=== PATIENT | female | born 1930 | race African-American/Black ===

== ENCOUNTER 2016-07-17 20:29 | Inpatient (IN) | payer OTHER ==
[~2016-07-17] VITALS: Ht 160 cm; Wt 76.9 kg
--- NOTE | ~2016-07-17 | PR ---
[place], [place] PROGRESS NOTE NAME: LEI DRAPER UNIT #: [id number] ROOM: 528 DOCTOR: ANA ZELAYA MD BIRTHDATE: [birth year] DOS: 07/27/2016 SUBJECTIVE: Patient of Dr. Espinal. Examined. The patient on chronic renal dialysis now. Blood pressure still seems to be significantly elevated. The patient does not offer any complaints, appears to be much more alert. OBJECTIVE: HEENT: Unremarkable. NECK: Supple, no JVD. LUNGS: Diminished breath sounds. HEART: Sounds are regular. ABDOMEN: Soft. NEUROLOGICAL: Unchanged. LABORATORY DATA: Hemoglobin 8.3, hematocrit 26.5. Electrolytes are normal. Creatinine is 4.9. IMPRESSION: Persistent hypertension. Today's blood pressure earlier was 189/65 prior to the ____. Yesterday, it was 165/76. RECOMMENDATIONS: Medications have been adjusted. He is on lisinopril 10 mg daily, clonidine 0.3 q. 6, hydralazine 100 t.i.d., carvedilol 25 q. 12, atorvastatin 80 mg daily, aspirin, and Plavix. Monitor the blood pressure closely. If persistent hypertension, consideration should be given for making the clonidine to 0.4 as per nephrology and we will follow up. ANA ZELAYA MD CM:PNTRANS [id number] ANA ZELAYA MD 07/27/16 1007 interface
--- NOTE | ~2016-07-17 | CON ---
[place], [place] REPORT OF CONSULTATION NAME: LEI DRAPER UNIT #: [id number] ROOM: [place] [address] DOCTOR: MILY GARCÍA MD BIRTHDATE: [birth year] DOS: 07/18/2016 HISTORY OF PRESENT ILLNESS: This is an 86-year-old -[place] woman whom I have seen many times before. She has coronary artery disease and LAD was stented in 2007 following an anterior wall myocardial infarction. She ____ heart failure and has not had any further cardiac workup recently. She has essential hypertension and diabetes mellitus. Both of the latter diseases have led to severe renal insufficiency and now has end-stage renal disease. She has hyperlipidemia, GERD, diabetic neuropathy. She has chronic anemia and had had bradycardia in the remote past. She had a stroke in the remote past that left her with some difficulty with her speech. She was admitted to the hospital because she had nausea, some abdominal discomfort, and also increasing shortness of breath a few days prior to this admission. She did not have any chest pain or heaviness or palpitations. No dizziness or loss of consciousness. She walks using a walker and has not had any falls and no new neurological symptoms. She does not smoke, nor does she drink alcoholic beverages. HOME MEDICATIONS: Include aspirin 81, atorvastatin 80 daily, carvedilol 6.25 mg b.i.d., clonidine 0.2 mg every 8 hours, clopidogrel 75 daily, furosemide 40 b.i.d., hydralazine 50 b.i.d., levothyroxine 25 mcg, prednisone 5 mg daily, ranitidine 150 mg daily, insulin detemir and NovoLog mix. PHYSICAL EXAMINATION: GENERAL: The patient who is very pleasant, alert. She is very comfortable. Her speech is not quite normal, but one can understand and without much difficulty. She looks a little pale. VITAL SIGNS: Temperature is normal. Pulse is regular at 76 beats per minute, blood pressure 179/82. Blood pressure has been persistently elevated, the highest being 217/100. NECK: JVP is increased to about 10 cm. No bruit in the neck. HEART: Cardiac auscultation reveals no murmurs or rubs. EXTREMITIES: She has no edema in the lower extremities. LUNGS: Breath sounds are diminished with some rhonchi. She has difficulty taking deep breaths. ABDOMEN: Supple. No bruit is present. LABORATORY DATA: An ECG showed normal sinus rhythm at 97 beats per minute, incomplete right bundle-branch block, and mild left axis deviation, which has been present for many years. Troponin has risen to just above 1 and in March troponin was close to 1. She has a chronically elevated troponin I level due to severe chronic renal insufficiency. Hemoglobin is 8.1 g/dL. IMPRESSION: 1. Elevated troponin I level is chronic and most likely is due to a combination of factors, namely severe anemia, severe renal insufficiency. I do not believe [place], [place] REPORT OF CONSULTATION NAME: LEI DRAPER UNIT #: [id number] ROOM: [place] [address] DOCTOR: RAQUEL SIMON,MILY BIRTHDATE: [birth year] this is due to occlusion of coronary artery. 2. She has some degree of volume load form clinical examination. 3. Chronic anemia, probably due to renal insufficiency. RECOMMENDATIONS: Nitro paste and IV heparin should be discontinued. Her home cardiac medications should be continued. I do not feel any further cardiac workup is necessary. She had an echocardiogram last year, which showed normal LV systolic function. I thank you for this consult. MILY GARCÍA MD CM:CONSTR:REPORT OF CONSULTATION 0724 07/18/16 1026 interface
--- NOTE | ~2016-07-17 | EKG ---
[place], [place] ELECTROCARDIOGRAM REPORT NAME: LEI DRAPER UNIT #: [id number] ROOM: [facility] DOCTOR: RAQUEL SIMON,MILY BIRTHDATE: [birth year] DOS: 07/17/2016 TIME: 21:06 hours. Normal sinus rhythm at 97 beats per minute. Moderate left axis deviation. Complete right bundle branch block. An abnormal ECG. No previous tracing is available for comparison. MILY GARCÍA MD CM:EKGRPT:ELECTROCARDIOGRAM REPORT [id number] MILY GARCÍA MD
--- NOTE | ~2016-07-17 | PR ---
[place], [place] PROGRESS NOTE NAME: LEI DRAPER UNIT #: [id number] ROOM: [place] [address] DOCTOR: NATHALIE SIMON,ANA BIRTHDATE: [birth year] DOS: SUBJECTIVE: The patient examined in the Intensive Care Unit. The patient still continues to be hypertensive, still on 40 mcg of nitro. The patient refusing dialysis. The patient was seen by Dr. Espinal yesterday. OBJECTIVE: VITAL SIGNS: Blood pressure is 160/70, in sinus rhythm. NECK: No jugular venous distention. LUNGS: Diminished breath sounds. HEART: Sounds are regular. ABDOMEN: Soft. NEUROLOGIC: Lethargic, arousable. LABORATORY DATA: Hemoglobin 8.1, hematocrit 26.1, potassium ____, BUN 79, creatinine is 8. INR is 1.0. IMPRESSION: Acute renal failure, persistent hypertension. RECOMMENDATIONS: Increase the clonidine. The patient needs dialysis. Troponin elevation is secondary to the renal failure CONDITION: Guarded and critical. We will try to review the echocardiogram if it is done. Condition is guarded and we will follow up. ANA ZELAYA MD CM:PNTRANS 1 ANA ZELAYA MD 07/19/16 0703 interface
--- NOTE | ~2016-07-17 | PR ---
[place], [place] PROGRESS NOTE NAME: LEI DRAPER UNIT #: [id number] ROOM: [facility] DOCTOR: ANA ZELAYA MD BIRTHDATE: [birth year] DOS: SUBJECTIVE: 24-hour events noted. Discussed with the nursing staff. The patient is undergoing dialysis recently. Agree for that. Blood pressure still seems to be significantly elevated. Blood pressure today is 170/80 and is going to 170s-180s, already on carvedilol, hydralazine, and Catapres 0.3 every 8 hours. OBJECTIVE: VITAL SIGNS: Blood pressure is 170/80 in sinus rhythm. NECK: Supple, no JVD. LUNGS: Diminished breath sounds. HEART: Heart sounds are regular. ABDOMEN: Soft. NEUROLOGIC: Intermittent confusion. LABORATORY DATA: BUN 41, creatinine is 5.4. IMPRESSION: 1. Urgent hypertension, uncontrolled. 2. Acute on chronic renal failure. 3. Cardiomyopathy. RECOMMENDATIONS: Increase the Catapres to every 6 hours, keep the systolic pressure below 150, and we will follow up. ANA ZELAYA MD CM:PNTRANS 0747 1108 ANA ZELAYA MD 07/24/16 1108 interface
--- NOTE | ~2016-07-17 | PR ---
[place], [place] PROGRESS NOTE [id number] UNIT #: [id number] ROOM: 528 DOCTOR: CARLOS SIMON,CLARITZA Cross BIRTHDATE: [birth year] DOS: 07/28/2016 NEPHROLOGY FOLLOWUP NOTE SUBJECTIVE: The patient was seen and examined. She is awake and alert. She denies shortness of breath, chest pain, fevers, chills or night sweats. She denied any nausea or vomiting. PHYSICAL EXAMINATION: VITAL SIGNS: Showed temperature 97.4, pulse 55, respiratory rate 18 and blood pressure 162/62. HEENT: Shows no JVD. LUNGS: With diminished breath sounds. No wheeze. HEART: Normal S1, S2. ABDOMEN: Soft, nontender. There is no organomegaly. EXTREMITIES: Trace edema. LABORATORY DATA: Hemoglobin 8.3, white count 13.4, platelets of 266. Sodium 134, potassium 4.1, CO2 26, BUN 35, creatinine 4.9, glucose 140, these labs were from yesterday. IMPRESSION AND PLAN: 1. End-stage renal disease, on hemodialysis Saturday, Saturday, Saturday. The patient is tolerating treatments well. Next treatment will be on Saturday. 2. Anemia. We will give as needed erythropoietin stimulating agents and IV iron with dialysis as blood pressure allows. 3. Secondary hyperparathyroidism. Continue activated vitamin D. 4. Hypertension. Medications are being adjusted. 5. Diabetes mellitus. The patient is on insulin. CLARITZA GONZALEZ MD CM:PNTRANS [id number] CLARITZA GONZALEZ MD 07/30/16 0007 interface
--- NOTE | ~2016-07-17 | PR ---
[place], [place] PROGRESS NOTE NAME: LEI DRAPER UNIT #: [id number] ROOM: [facility] DOCTOR: MILY GARCÍA MD BIRTHDATE: [birth year] DOS: 07/25/2016 SUBJECTIVE: She is alert, oriented. Speech is not normal. This is chronic from an old stroke. She has no chest pain; breathing is fine and has not had any palpitations either. OBJECTIVE: GENERAL: She is dialyzing at this time. VITAL SIGNS: Pulse is regular at 60. Blood pressure 174/74, previous blood pressure had been somewhat lower. NECK: JVP is difficult to assess. LUNGS: Clear to auscultation with no murmurs. She has a rhonchi and some crackles in both lungs. EXTREMITIES: No edema at all in the lower extremities. IMPRESSION: Hypertension is better. I think dialysis should make a fair amount of difference. She is on quite a few antihypertensive medications. She remains in normal sinus rhythm. MILY GARCÍA MD CM:PNTRANS 1205 40 MILY GARCÍA MD 07/25/162140 interface
--- NOTE | ~2016-07-17 | PR ---
[place], [place] PROGRESS NOTE NAME: LEI DRAPER UNIT #: [id number] ROOM: [facility] DOCTOR: MILY GARCÍA MD BIRTHDATE: [birth year] DOS: 07/23/2016 SUBJECTIVE: This patient has end-stage renal disease and was admitted to the hospital with extremely high blood pressures, which have been very difficult to tame despite her being on carvedilol 25 b.i.d., clonidine 0.3 mg t.i.d., and hydralazine 50 mg b.i.d. PHYSICAL EXAMINATION: GENERAL: This is a patient who is tired, exhausted. She has residual from her CVA and mobility is difficult. VITAL SIGNS: Pulses are irregular, blood pressure is 180 to 190 most of the time. NECK: JVP difficult to assess. LUNGS: Breath sounds are fairly distant with some rhonchi. EXTREMITIES: No edema of the lower extremities. IMPRESSION: 1. Hypertension. This has still not been tamed adequately. I would recommend hydralazine to be increased to 50 mg t.i.d. 2. End-stage renal disease. Dialysis catheter is not working. I think once she begin to dialyze, this should also help with blood pressure control. MILY GARCÍA MD CM:PNTRANS [id number] MILY GARCÍA MD 07/24/16 0642 interface
--- NOTE | ~2016-07-17 | PR ---
[place], [place] PROGRESS NOTE NAME: LEI DRAPER UNIT #: [id number] ROOM: [facility] DOCTOR: MIYL GARCÍA MD BIRTHDATE: [birth year] DOS: 07/20/2016 SUBJECTIVE: The patient remains short of breath. She has not had any chest pain or palpitation. No cough or fever. Blood pressure had been running rather high. She is on many antihypertensive and also is on IV nitroglycerin drip. OBJECTIVE: GENERAL: She is alert and oriented. Her speech is not normal and this is due to old CVA. VITAL SIGNS: Pulse is irregular at 66 beats per minute, blood pressure 118/50, most of the systolic blood pressure had been around 150/180. NECK: JVP is elevated. LUNGS: She has rhonchi with crackles in the bases. EXTREMITIES: No edema in the lower extremities. LABORATORY DATA: Monitor shows normal sinus rhythm. IMPRESSION: This patient has hypertension ____ controlled. Heart rate is still decent; therefore carvedilol is being increased to 25 mg b.i.d. and IV nitroglycerin has been discontinued if blood pressure stays below 180s. Once hemodialysis is started, blood pressure is likely to come under very good control and then some antihypertensive drugs may have to be reduced or stopped. MILY GARCÍA MD CM:PNTRANS 0727 0931 MILY GARCÍA MD 07/20/16 0932 interface
[~2016-07-17 20:29] MED LIST: 'CLONIDINE0.1 MG PO; AMITRIPTYLINE10 MG PO; AMLODIPINE10 MG PO; ASPIRIN81 M1 PO; BACTRIM DS 8001 TA1 PO; CALCITRIOL0.25 MCG PO; CATAPRES; CIPRO500 MG PO; CLONIDINE HCL0.2 MG PO; CLONIDINE0.2 MG PO; COREG25 MG PO; COREG6.25 MG PO; Carafate1 GM PO; DIOVAN; DIOVAN320 MG PO; ECOTRIN81 MG PO; FLEXERIL10 MG PO; HUMULIN 70/30 710 M1 SC; HYDRALAZINE HYD50 MG PO; HYDROCODONE BIT1 T11 PO; LASIX40 MG PO; LEVEMIR FLEX100 U/ML SC; LEVOTHYROXIN0.025 MG PO; LIPITOR80 MG PO; METOLAZONE2.5 MG PO; NORVASC10 MG PO; NOVOLOG MI100 UNIT/2 SQ; NPH SC; OMEPRAZOLE20 MG PO; PLAVIX75 MG PO; POTASSIUM; POTASSIUM20 MEQ PO; PREDNISONE5 MG PO; SINGULAIR10 M1 PO; SINGULAIR10 MG PO; SYNTHROID0.05 MG PO; SYNTHROID25 MCG PO; VICODIN 5/500 505 MG PO; VITAMIN D PO; VOLTAREN1% TP; WATER; ZANTAC 150150 MG PO; ZITHROMAX Z PA250 MG PO; ZOFRAN4 MG PO
[2016-07-17 20:33] VITALS: BP 189/99
[2016-07-17 21:14] LABS: BASO # 0.1 10*3/uL (0.0-0.1); BASO % 0.5 % (0.0-1.0); EOS # 0.1 10*3/uL (0.0-0.4); EOS % 1.4 % (1.0-4.0); HEMOGLOBIN 8.6 g/dl (12.0-16.0); LYMPH # 2.5 10*3/uL (1.3-4.4); LYMPH % 24.9 % (27.0-41.0); MEAN CELL VOLUME 87.4 fl (81.0-99.0); MEAN CORPUSCULAR HGB 27.8 pg (27.0-31.0); MEAN CORPUSCULAR HGB CONC 31.9 g/dl (33.0-37.0); MEAN PLATELET VOLUME 10.7 fl (9.6-12.3); MONO # 0.6 10*3/uL (0.1-1.0); MONO % 5.9 % (3.0-9.0); NEUT # 6.8 10*3/uL (2.3-7.9); NEUT % 67.1 % (47.0-73.0); PLATELET COUNT AUTOMATED 281 10*3/uL (130-400); RED BLOOD COUNT 3.09 10*6/uL (4.10-5.10); RED CELL DISTRI WIDTH 14.8 % (0-14.5); WHITE BLOOD COUNT 10.1 10*3/uL (4.8-10.8)
[2016-07-17 21:23] LABS: PROTHROMBIN TIME 10.7 SECONDS (9.0-12.4)
[2016-07-17 21:31] LABS: ALBUMIN 3.4 gm/dl (3.1-4.5); BILIRUBIN, TOTAL 0.3 mg/dl (0.2-1.0); MAGNESIUM 2.5 mg/dL (1.5-2.1); POTASSIUM 4.2 mmol/L (3.5-5.1); TOTAL PROTEIN 7.7 gm/dL (6.4-8.2)
[2016-07-17 21:33] LABS: TROPONIN I 0.996 ng/ml (<0.045)
[2016-07-17 21:41] VITALS: BP 178/80
[2016-07-17 22:35] VITALS: BP 182/84
[2016-07-17 22:46] LABS: BILIRUBIN NEGATIVE (NEGATIVE); BLOOD TRACE-INTACT (NEGATIVE); CLARITY CLEAR (CLEAR); COLOR YELLOW (YELLOW); GLUCOSE TRACE (NEGATIVE); KETONE NEGATIVE (NEGATIVE); LEUKO ESTERASE NEGATIVE (NEGATIVE); NITRITE NEGATIVE (NEGATIVE); PH 6.5 (5.0-9.0); PROTEIN 3+ (NEGATIVE); SPECIFIC GRAVITY 1.015 (1.005-1.030); UROBILINOGEN 0.2 E.U./dl (0.2-1.0)
[2016-07-17 22:56] LABS: URINE REFLEX COMMENT NO (NO)
[2016-07-17 23:45] VITALS: BP 220/110
[2016-07-18] VITALS (27 sets, daily range): BP systolic 144–220; BP diastolic 57–110
[2016-07-18] MEDS ORDERED: LEVEMIR10 ML SC (00:28)
[2016-07-18 05:55] LABS: CKMB 3.2 ng/ml (0.5-3.6)
[2016-07-18 06:02] LABS: TROPONIN I 1.02 ng/ml (<0.045)
[2016-07-18 06:08] LABS: BASO # 0.1 10*3/uL (0.0-0.1); BASO % 0.5 % (0.0-1.0); EOS # 0.1 10*3/uL (0.0-0.4); EOS % 1.2 % (1.0-4.0); HEMATOCRIT 26.1 % (37.0-47.0); HEMOGLOBIN 8.1 g/dl (12.0-16.0); LYMPH # 2.4 10*3/uL (1.3-4.4); LYMPH % 22.1 % (27.0-41.0); MEAN CELL VOLUME 87.9 fl (81.0-99.0); MEAN CORPUSCULAR HGB 27.3 pg (27.0-31.0); MEAN PLATELET VOLUME 11.6 fl (9.6-12.3); MONO # 0.6 10*3/uL (0.1-1.0); MONO % 5.4 % (3.0-9.0); NEUT # 7.5 10*3/uL (2.3-7.9); NEUT % 70.6 % (47.0-73.0); PLATELET COUNT AUTOMATED 290 10*3/uL (130-400); RED BLOOD COUNT 2.97 10*6/uL (4.10-5.10); RED CELL DISTRI WIDTH 14.6 % (0-14.5); WHITE BLOOD COUNT 10.7 10*3/uL (4.8-10.8)
[2016-07-18 06:09] LABS: MAGNESIUM 2.5 mg/dL (1.5-2.1); POTASSIUM 3.8 mmol/L (3.5-5.1)
[2016-07-18 06:19] LABS: FREE T4 1.11 ng/dl (0.76-1.46); THYROID STIM HORMONE (HS) 4.58 uIU/ml (0.358-4.75)
[2016-07-18 06:32] LABS: HEMOGLOBIN A1c 8.6 % (4.8-5.6)
[2016-07-18 07:24] LABS: VITAMIN D, 25-HYDROXY 24.4 ng/mL (30-100)
[2016-07-18 07:25] LABS: FOLIC ACID 21.41 ng/mL (>5.38)
[2016-07-18 12:17] LABS: CKMB 3.9 ng/ml (0.5-3.6)
[2016-07-18 12:20] LABS: TROPONIN I 1.15 ng/ml (<0.045)
[2016-07-18 18:10] LABS: TROPONIN I 1.22 ng/ml (<0.045)
[2016-07-19] VITALS (12 sets, daily range): BP systolic 139–195; BP diastolic 65–102
[2016-07-19 05:43] LABS: ALBUMIN 2.9 gm/dl (3.1-4.5); MAGNESIUM 2.3 mg/dL (1.5-2.1); PHOSPHOROUS 3.7 mg/dL (2.5-4.9); POTASSIUM 3.7 mmol/L (3.5-5.1)
[2016-07-20] VITALS (17 sets, daily range): BP systolic 106–212; BP diastolic 50–110
[2016-07-20 05:55] LABS: ALBUMIN 2.9 gm/dl (3.1-4.5); MAGNESIUM 2.5 mg/dL (1.5-2.1); PHOSPHOROUS 4.4 mg/dL (2.5-4.9); POTASSIUM 3.9 mmol/L (3.5-5.1)
[2016-07-20 06:21] LABS: PROTHROMBIN TIME 10.5 SECONDS (9.0-12.4)
[2016-07-20 16:10] LABS: IRON 24 ug/dL (50-170)
[2016-07-20 16:33] LABS: FERRITIN 125.2 ng/mL (10.0-291.0)
[2016-07-20 16:34] LABS: PTH INTACT 779.8 pg/mL (14.0-72.0)
[2016-07-21] VITALS (11 sets, daily range): BP systolic 120–197; BP diastolic 28–83
[2016-07-21 06:06] LABS: ALBUMIN 2.7 gm/dl (3.1-4.5); PHOSPHOROUS 3.5 mg/dL (2.5-4.9); POTASSIUM 3.6 mmol/L (3.5-5.1)
[2016-07-21 06:12] LABS: BASO % 0.2 % (0.0-1.0); EOS # 0.2 10*3/uL (0.0-0.4); HEMATOCRIT 21.4 % (37.0-47.0); HEMOGLOBIN 6.8 g/dl (12.0-16.0); LYMPH # 1.8 10*3/uL (1.3-4.4); LYMPH % 18.6 % (27.0-41.0); MEAN CELL VOLUME 88.4 fl (81.0-99.0); MEAN CORPUSCULAR HGB 28.1 pg (27.0-31.0); MEAN CORPUSCULAR HGB CONC 31.8 g/dl (33.0-37.0); MEAN PLATELET VOLUME 11.3 fl (9.6-12.3); MONO # 0.6 10*3/uL (0.1-1.0); MONO % 5.8 % (3.0-9.0); NEUT % 73.1 % (47.0-73.0); PLATELET COUNT AUTOMATED 240 10*3/uL (130-400); RED BLOOD COUNT 2.42 10*6/uL (4.10-5.10); RED CELL DISTRI WIDTH 14.7 % (0-14.5); WHITE BLOOD COUNT 9.6 10*3/uL (4.8-10.8)
[2016-07-21 08:15] LABS: HEP B CORE AB TOTAL 006718 Positive (Negative); HEPATITIS B SURFACE AB 006395 Reactive (.); TRANSFERRIN 004937 177 mg/dL (200-370)
[2016-07-22] VITALS: BP 171/68
[2016-07-22 04:00] VITALS: BP 167/82
[2016-07-22 05:55] LABS: BASO % 0.4 % (0.0-1.0); EOS # 0.1 10*3/uL (0.0-0.4); EOS % 1.4 % (1.0-4.0); IG # 0.1 10*3/uL (0.0-0.1); LYMPH # 2.2 10*3/uL (1.3-4.4); LYMPH % 21.2 % (27.0-41.0); MEAN CORPUSCULAR HGB 28.2 pg (27.0-31.0); MEAN CORPUSCULAR HGB CONC 32.4 g/dl (33.0-37.0); MEAN PLATELET VOLUME 11.1 fl (9.6-12.3); MONO # 0.7 10*3/uL (0.1-1.0); MONO % 7.2 % (3.0-9.0); NEUT # 7.2 10*3/uL (2.3-7.9); NEUT % 69.3 % (47.0-73.0); NUCLEATED RED BLOOD CELL 0.2 % (0.0-0.0); PLATELET COUNT AUTOMATED 243 10*3/uL (130-400); RED BLOOD COUNT 3.23 10*6/uL (4.10-5.10); RED CELL DISTRI WIDTH 15.8 % (0-14.5); WHITE BLOOD COUNT 10.3 10*3/uL (4.8-10.8)
[2016-07-22 05:58] LABS: POTASSIUM 3.7 mmol/L (3.5-5.1)
[2016-07-22 06:15] LABS: HEMATOCRIT 28.1 % (37.0-47.0); HEMOGLOBIN 9.1 g/dl (12.0-16.0)
[2016-07-22 08:00] VITALS: BP 169/70
[2016-07-22 12:00] VITALS: BP 150/102
[2016-07-22 16:00] VITALS: BP 197/83
[2016-07-22 20:00] VITALS: BP 180/102
[2016-07-23] VITALS (11 sets, daily range): BP systolic 140–235; BP diastolic 62–108
[2016-07-23 05:57] LABS: BASO # 0.1 10*3/uL (0.0-0.1); BASO % 0.5 % (0.0-1.0); EOS # 0.1 10*3/uL (0.0-0.4); EOS % 1.3 % (1.0-4.0); HEMATOCRIT 27.3 % (37.0-47.0); HEMOGLOBIN 8.5 g/dl (12.0-16.0); LYMPH # 2.2 10*3/uL (1.3-4.4); LYMPH % 20.4 % (27.0-41.0); MEAN CELL VOLUME 87.8 fl (81.0-99.0); MEAN CORPUSCULAR HGB 27.3 pg (27.0-31.0); MEAN CORPUSCULAR HGB CONC 31.1 g/dl (33.0-37.0); MEAN PLATELET VOLUME 11.2 fl (9.6-12.3); MONO # 0.7 10*3/uL (0.1-1.0); MONO % 6.4 % (3.0-9.0); NEUT # 7.6 10*3/uL (2.3-7.9); NEUT % 71.1 % (47.0-73.0); NUCLEATED RED BLOOD CELL 0.2 % (0.0-0.0); PLATELET COUNT AUTOMATED 249 10*3/uL (130-400); RED BLOOD COUNT 3.11 10*6/uL (4.10-5.10); RED CELL DISTRI WIDTH 15.5 % (0-14.5); WHITE BLOOD COUNT 10.7 10*3/uL (4.8-10.8)
[2016-07-23 06:14] LABS: POTASSIUM 3.8 mmol/L (3.5-5.1)
[2016-07-23 13:43] LABS: ABG BASE EXCESS -2.8 mmol/L (-2.0-2.0); ABG CO2 CONTENT 23.5 mmol/L (23-27); ABG HCO3 22.2 mmol/l (22-26); ARTERIAL BLOOD GAS PH 7.366 (7.35-7.45)
[2016-07-24] VITALS: BP 132/41
[2016-07-24 04:00] VITALS: BP 181/66
[2016-07-24 08:00] VITALS: BP 168/66
[2016-07-24 11:00] LABS: BASO % 0.3 % (0.0-1.0); EOS # 0.1 10*3/uL (0.0-0.4); EOS % 0.8 % (1.0-4.0); HEMATOCRIT 26.9 % (37.0-47.0); HEMOGLOBIN 8.7 g/dl (12.0-16.0); LYMPH # 1.4 10*3/uL (1.3-4.4); LYMPH % 13.2 % (27.0-41.0); MEAN CELL VOLUME 87.9 fl (81.0-99.0); MEAN CORPUSCULAR HGB 28.4 pg (27.0-31.0); MEAN CORPUSCULAR HGB CONC 32.3 g/dl (33.0-37.0); MEAN PLATELET VOLUME 10.3 fl (9.6-12.3); MONO # 0.6 10*3/uL (0.1-1.0); MONO % 5.6 % (3.0-9.0); NEUT # 8.6 10*3/uL (2.3-7.9); NEUT % 79.9 % (47.0-73.0); PLATELET COUNT AUTOMATED 248 10*3/uL (130-400); RED BLOOD COUNT 3.06 10*6/uL (4.10-5.10); RED CELL DISTRI WIDTH 15.2 % (0-14.5); WHITE BLOOD COUNT 10.7 10*3/uL (4.8-10.8)
[2016-07-24 11:11] LABS: POTASSIUM 4.2 mmol/L (3.5-5.1)
[2016-07-24 13:02] VITALS: BP 105/65
[2016-07-24 14:59] VITALS: BP 141/53
[2016-07-24 20:00] VITALS: BP 184/82
[2016-07-25] VITALS: BP 138/80
[2016-07-25 04:00] VITALS: BP 168/62
[2016-07-25 06:13] LABS: ALBUMIN 2.6 gm/dl (3.1-4.5); MAGNESIUM 2.1 mg/dL (1.5-2.1); PHOSPHOROUS 5.1 mg/dL (2.5-4.9); POTASSIUM 4.1 mmol/L (3.5-5.1)
[2016-07-25 06:16] LABS: BASO % 0.2 % (0.0-1.0); EOS # 0.1 10*3/uL (0.0-0.4); EOS % 1.3 % (1.0-4.0); HEMOGLOBIN 8.1 g/dl (12.0-16.0); LYMPH # 1.8 10*3/uL (1.3-4.4); LYMPH % 19.4 % (27.0-41.0); MEAN CORPUSCULAR HGB CONC 31.2 g/dl (33.0-37.0); MEAN PLATELET VOLUME 10.6 fl (9.6-12.3); MONO # 0.7 10*3/uL (0.1-1.0); MONO % 7.4 % (3.0-9.0); NEUT # 6.8 10*3/uL (2.3-7.9); NEUT % 71.4 % (47.0-73.0); PLATELET COUNT AUTOMATED 260 10*3/uL (130-400); RED BLOOD COUNT 2.89 10*6/uL (4.10-5.10); RED CELL DISTRI WIDTH 14.9 % (0-14.5); WHITE BLOOD COUNT 9.5 10*3/uL (4.8-10.8)
[2016-07-25 08:00] VITALS: BP 171/72
[2016-07-25 12:00] VITALS: BP 174/74
[2016-07-25 16:00] VITALS: BP 175/69
[2016-07-25 20:00] VITALS: BP 168/52
[2016-07-26] VITALS (7 sets, daily range): BP systolic 107–188; BP diastolic 69–90
[2016-07-26 06:23] LABS: BASO % 0.4 % (0.0-1.0); EOS # 0.1 10*3/uL (0.0-0.4); EOS % 0.9 % (1.0-4.0); HEMATOCRIT 27.8 % (37.0-47.0); HEMOGLOBIN 8.7 g/dl (12.0-16.0); LYMPH # 2.2 10*3/uL (1.3-4.4); LYMPH % 21.5 % (27.0-41.0); MEAN CELL VOLUME 89.4 fl (81.0-99.0); MEAN CORPUSCULAR HGB CONC 31.3 g/dl (33.0-37.0); MEAN PLATELET VOLUME 10.5 fl (9.6-12.3); MONO # 1.1 10*3/uL (0.1-1.0); MONO % 10.1 % (3.0-9.0); NEUT % 66.7 % (47.0-73.0); PLATELET COUNT AUTOMATED 278 10*3/uL (130-400); RED BLOOD COUNT 3.11 10*6/uL (4.10-5.10); RED CELL DISTRI WIDTH 14.9 % (0-14.5); WHITE BLOOD COUNT 10.4 10*3/uL (4.8-10.8)
[2016-07-26 06:55] LABS: ALBUMIN 2.6 gm/dl (3.1-4.5); MAGNESIUM 1.8 mg/dL (1.5-2.1); PHOSPHOROUS 3.1 mg/dL (2.5-4.9)
[2016-07-27] VITALS: BP 189/65
[2016-07-27 06:07] LABS: BASO # 0.1 10*3/uL (0.0-0.1); BASO % 0.4 % (0.0-1.0); EOS # 0.1 10*3/uL (0.0-0.4); EOS % 0.9 % (1.0-4.0); HEMATOCRIT 26.5 % (37.0-47.0); HEMOGLOBIN 8.3 g/dl (12.0-16.0); IG # 0.1 10*3/uL (0.0-0.1); LYMPH # 2.2 10*3/uL (1.3-4.4); LYMPH % 16.5 % (27.0-41.0); MEAN CELL VOLUME 87.7 fl (81.0-99.0); MEAN CORPUSCULAR HGB 27.5 pg (27.0-31.0); MEAN CORPUSCULAR HGB CONC 31.3 g/dl (33.0-37.0); MEAN PLATELET VOLUME 10.2 fl (9.6-12.3); MONO # 0.9 10*3/uL (0.1-1.0); NEUT % 74.7 % (47.0-73.0); PLATELET COUNT AUTOMATED 266 10*3/uL (130-400); RED BLOOD COUNT 3.02 10*6/uL (4.10-5.10); RED CELL DISTRI WIDTH 14.7 % (0-14.5); WHITE BLOOD COUNT 13.4 10*3/uL (4.8-10.8)
[2016-07-27 06:38] LABS: ALBUMIN 2.8 gm/dl (3.1-4.5); MAGNESIUM 1.9 mg/dL (1.5-2.1); PHOSPHOROUS 3.5 mg/dL (2.5-4.9); POTASSIUM 4.1 mmol/L (3.5-5.1)
[2016-07-27 08:00] VITALS: BP 158/68; BP 174/58
[2016-07-27 12:00] VITALS: BP 162/80
[2016-07-27 16:00] VITALS: BP 138/44
[2016-07-27 17:18] VITALS: BP 160/72
[2016-07-27 20:00] VITALS: BP 160/63
[2016-07-28] VITALS: BP 157/58
[2016-07-28 08:00] VITALS: BP 160/86
[2016-07-28 12:00] VITALS: BP 162/62
== END 2016-07-28 15:15 | disposition other institution (70) | DRG 682 ==
LOC: ED 20:29 → EDHOLD 22:30 → 5E 22:30 → ICCU 22:30 → 5E 07-26 15:23
PROVIDERS: Anesthesiology; Emergency Medicine Emergency Medical Services; Internal Medicine; Internal Medicine Nephrology; Student in an Organized Health Care Education/Training Program
DX: I12.0 Hypertensive chronic kidney disease with stage 5 chronic kidney disease or end stage renal disease (principal); J96.00 Acute respiratory failure, unspecified whether with hypoxia or hypercapnia; I21.4 Non-ST elevation (NSTEMI) myocardial infarction; N17.9 Acute kidney failure, unspecified; E43 Unspecified severe protein-calorie malnutrition; N18.6 End stage renal disease; I42.9 Cardiomyopathy, unspecified; I16.1 Hypertensive emergency; N25.81 Secondary hyperparathyroidism of renal origin; J98.11 Atelectasis; E55.9 Vitamin D deficiency, unspecified; E83.41 Hypermagnesemia; E11.22 Type 2 diabetes mellitus with diabetic chronic kidney disease; E11.65 Type 2 diabetes mellitus with hyperglycemia; D63.1 Anemia in chronic kidney disease; G44.52 New daily persistent headache (NDPH); Z99.2 Dependence on renal dialysis; Z86.73 Personal history of transient ischemic attack (TIA), and cerebral infarction without residual deficits; Z87.440 Personal history of urinary (tract) infections; Z90.49 Acquired absence of other specified parts of digestive tract; Z90.710 Acquired absence of both cervix and uterus; Z95.818 Presence of other cardiac implants and grafts; Z82.3 Family history of stroke; Z84.1 Family history of disorders of kidney and ureter; Z88.5 Allergy status to narcotic agent; Z79.82 Long term (current) use of aspirin; Z79.4 Long term (current) use of insulin; Z68.30 Body mass index [BMI] 30.0-30.9, adult

== ENCOUNTER 2016-08-01 18:39 | Inpatient (IN) | payer OTHER ==
[~2016-08-01] VITALS: Ht 160 cm; Wt 72.6 kg
--- NOTE | ~2016-08-01 | CON ---
[place], [place] REPORT OF CONSULTATION NAME: LEI DRAPER UNIT #: [id number] ROOM: 510 DOCTOR: MILY GARCÍA MD BIRTHDATE: [birth year] DOS: 08/06/2016 HISTORY OF PRESENT ILLNESS: This is an 86-year-old woman whom I have seen many times before. She has coronary artery disease and had LAD stented about 9 years ago. This was followed with acute anterior wall myocardial infarction. She did not have any heart failure and has not had any further cardiac workup. She has essential hypertension and diabetes. She has had a stroke, diabetic neuropathy, GERD, hyperlipidemia, and chronic anemia and has had sinus bradycardia. Her speech has been affected by a stroke. She was admitted to the hospital because of a seizure-like activity and her troponin I level was mildly elevated, but the 4 readings over 3 days have been pretty much the same i.e. no trend. She has been dialyzing now for the last couple of weeks. She did not have any chest pain, does not recall having had any palpitation and there was no loss of consciousness. She is alert and oriented. Speech is not quite normal. PHYSICAL EXAMINATION: VITAL SIGNS: Blood pressure is 186/66. Pulse is regular at 72. NECK: JVP is normal. LUNGS: She has hardly any crackles in the lungs. HEART: There are no murmurs. EXTREMITIES: There is 1+ pedal edema bilaterally. LABORATORY DATA: An ECG shows sinus bradycardia with a complete right bundle-branch block, which is chronic. As I mentioned above, troponin I level has been between 0.2 and 0.3. IMPRESSION: This patient has mildly elevated troponin I level and this is most likely due to end-stage renal disease and perhaps severe hypertension. I do not suspect this is from occlusion of coronary artery; therefore, further workup is not recommended. ____ hypertension, this is much better controlled. I thank you for this consult. [place], [place] REPORT OF CONSULTATION NAME: LEI DRAPER UNIT #: [id number] ROOM: 510 DOCTOR: MILY GARCÍA MD BIRTHDATE: [birth year] MILY GARCÍA MD CM:CONSTR:REPORT OF CONSULTATION 1810 08/07/16 0806 interface
--- NOTE | ~2016-08-01 | CON ---
[place], [place] REPORT OF CONSULTATION NAME: LEI DRAPER UNIT #: [id number] ROOM: 510 DOCTOR: CIARA LOWE MD BIRTHDATE: [birth year] DOS: 08/02/2016 NEPHROLOGY CONSULTATION REASON FOR CONSULTATION: End-stage renal disease management. HISTORY OF PRESENT ILLNESS: The patient is a very pleasant 86-year-old woman seen in renal consultation for end-stage renal disease management. She is well known to me for her history of CKD secondary to hypertension and diabetes. She has recently been started on dialysis a few weeks ago when hospitalized here. She came into the hospital on 07/17/2016 with worsening shortness of breath, volume overload, hypertensive urgency, nausea, vomiting. After several days of diuresis she finally did state that she wanted to do dialysis and was happy that she did so, her creatinine was into the 8 range at that time. Since starting dialysis overall blood pressures remain elevated and labile, but overall fairly acceptably controlled. Her clearance numbers have been acceptable. Her electrolytes are stable. Acidosis panels have been normal. Her anemia has been improving from hemoglobin in the 8 level up to 10 with erythropoietin stimulating agent therapy. On Saturday when I saw her at outpatient dialysis, she did have some hypertension and volume and I tried to push her ultrafiltration rate a little bit more she developed intradialytic hypotension. Blood pressures dropped significantly. She became symptomatic and had abdominal pain as a primary symptom. After this, she did have some abdominal pain, but recovered blood pressure fairly well after reduced ultrafiltration goal. Saturday's treatment yesterday was fairly unremarkable except for some hypertension and when she went back to the home at [place] she was asking for food, food did not come per her report when she got it, her daughter was there and she noted slightly clonic behavior, increased tone was mostly upper arms and entire torso. She brought her arms closer to her chest rhythmically started having clonic behavior, mostly in the right lower extremity. According to the daughter, she continued to try to talk during this episode and she was not specifically confused per her report, there is no neurologist obviously here and a CT scan in the ER was unremarkable for any new acute evolving events. She has had a history of multiple syncopal episodes, TIAs and past strokes. She has a gait disturbance and chronic aphasia, which is fairly stable, slightly increased perhaps to my recollection since starting dialysis. No other dysequilibrium or any other symptoms of that regard, hyperparathyroidism of renal insufficiency, hypertension, hyperuricemia and anemia ongoing treatment with dialysis. PAST MEDICAL HISTORY: As above. SURGICAL HISTORY: History of coronary artery disease, status post stent, cholecystectomy, hysterectomy, tonsillectomy. SOCIAL HISTORY: No active tobacco or toxic habits. FAMILY HISTORY: Positive for son with renal failure. Daughter with chronic kidney disease, diabetes and hypertension runs in the family. ALLERGIES: SHE HAS NOTED ALLERGY TO CODEINE. [place], [place] REPORT OF CONSULTATION NAME: LEI DRAPER UNIT #: [id number] ROOM: 510 DOCTOR: CIARA LOWE MD BIRTHDATE: [birth year] HOME MEDICATIONS: Reviewed. REVIEW OF SYSTEMS: As per the HPI, otherwise all systems negative. PHYSICAL EXAMINATION: VITAL SIGNS: Blood pressures 130s to 160/40s to 70s, respiratory rate 16-20, pulse 51-76, afebrile, 94%-100% on room air. GENERAL: She is awake, alert, pleasant, elderly woman in no acute distress, sitting with the head of bed raised. HEAD AND NECK: Chronic aphasia is still present. Oropharynx, mucous membranes are moist, no thrush. NECK: No JVD or lymphadenopathy. LUNGS: Fairly clear anteriorly without audible rales or wheeze. CARDIOVASCULAR: Rate regular. No audible rub. No palpable lift or heave. She has a right IJ tunneled dialysis catheter. ABDOMEN: Soft, obese, nontender. No rebound, no guarding. BACK: No CVA tenderness. EXTREMITIES: Periphery with mild 1+ edema. Adequate capillary refill and perfusion is noted. NEUROLOGIC: Apart from her speech pattern some contractions noted which are chronic gait disturbance and weakness. LABORATORIES AND DIAGNOSTICS: White blood cell count 10.9, hemoglobin 10.2, platelets 375. INR 1.1, sodium 136, potassium 3.9, chloride 98, bicarbonate 30, BUN 12, creatinine 3.54, glucose 203, calcium 9.7, phosphorus 2.8, magnesium 1.8, ammonia 16. CPK 68, CK-MB 1.9, troponin I 0.31. Vitamin D 33. TSH 22.8, free T4 of 1.41. Urinalysis 3+ protein, trace blood and glucose. CT head: No acute intracranial abnormality, but patchy areas of low attenuation seen in the subcortical and deep periventricular white matter suggestive of chronic microvascular ischemia. Blood cultures and urine cultures pending, negative to date. ASSESSMENT AND PLAN: 1. End-stage renal disease. Hemodialysis, we will continue on a Saturday, Saturday, Saturday schedule as per outpatient schedule. 2. Volume and hypertension, labile is fairly controlled at this time. 3. Anemia of chronic kidney disease. Continue erythropoietin stimulating agent therapy with dialysis hyperparathyroidism of renal insufficiency. Continue vitamin D per outpatient dosing. 4. Likely seizure activity, suspect baseline neurologic deficits and prior transient ischemic attacks and strokes have left her with some nidus for seizure activity. Further evaluation by Neurology would be recommended deferring management and the acute term to the primary service. Thank you very much for the kind consultation. [place], [place] REPORT OF CONSULTATION NAME: LEI DRAPER UNIT #: [id number] ROOM: 510 DOCTOR: CIARA LOWE MD BIRTHDATE: [birth year] CIARA LOWE MD CM:CONSTR:REPORT OF CONSULTATION 1146 08/02/16 2116 interface
--- NOTE | ~2016-08-01 | PR ---
[place], [place] PROGRESS NOTE NAME: LEI DRAPER UNIT #: [id number] ROOM: 510 DOCTOR: MANDA BAI MD BIRTHDATE: [birth year] DOS: 08/05/2016 INTERVAL HISTORY: The patient has been admitted to hospital with chronic renal failure with anemia and she is gradually getting hemodialysis and her breathing is improving. No chest pain, no difficulty breathing, no nausea, no vomiting. Her urine culture had heavy growth of gram-negative bacteria. Blood culture is negative. Her blood pressure is showing 160/70, pulse 54, respirations 20, temperature 97.7. The patient at present is taking levothyroxine, which is sensitive to bacteria. MANDA BAI MD CM:PNTRANS 1224 2356 MANDA BAI MD 08/05/16 2356 interface
--- NOTE | ~2016-08-01 | PR ---
[place], [place] PROGRESS NOTE NAME: LEI DRAPER UNIT #: [id number] ROOM: 510 DOCTOR: CIARA LOWE MD BIRTHDATE: [birth year] DOS: 08/03/2016 SUBJECTIVE: The patient underwent dialysis today and is tolerated it fairly well and approximately 1-1.5 liters of ultrafiltration planned. No further reports of nausea, vomiting, or abdominal pain during treatment today. Blood pressures remain difficult to manage with hypertension most of the time, especially on ____ of dialysis treatment, but significant and symptomatic hypotension with more aggressive ultrafiltration. PHYSICAL EXAMINATION: VITAL SIGNS: Vital signs were into the 200 systolic, on dialysis, but prior to this it was 155/50, afebrile, saturations normal on room air. Exam is unchanged. LABORATORIES AND DIAGNOSTICS: Were reviewed. Electrolytes are within normal limits. ASSESSMENT AND PLAN: Continue dialysis for end-stage renal disease, on Saturday, Saturday, Saturday schedule. I do have some concerns about the elevated lactic acid level yesterday that I am noting now. Given her abdominal pain with hypotension, some degree of mesenteric ischemia may be a possibility in this patient. Certainly the more acute events of the possible seizure activity, neurologic defects when she presented need to be evaluated further ____ no further seizure activities had been noted so far. Thank you very much. We will continue to follow. CIARA LOWE MD CM:PNTRANS 2318 [id number] CIARA LOWE MD 08/04/16 2103 interface
--- NOTE | ~2016-08-01 | PR ---
[place], [place] PROGRESS NOTE NAME: LEI DRAPER UNIT #: [id number] ROOM: 510 DOCTOR: ANA ZELAYA MD BIRTHDATE: [birth year] DOS: SUBJECTIVE: 24 hours events noted. Discussed with the nursing staff. The patient still continues to be significantly hypertensive. OBJECTIVE: VITAL SIGNS: Today's blood pressure is 180/55. She is already on multiple medications. NECK: Supple, no JVD. LUNGS: Diminished breath sounds. HEART: Sounds are regular. ABDOMEN: Soft. NEUROLOGIC: Stable. LABORATORY DATA: Hemoglobin 9.1, hematocrit 28.5. Electrolytes are normal. Creatinine is 6. The patient is being dialyzed. IMPRESSION: Persistent hypertension, seizure disorder, leukocytosis, chronic kidney disease. PLAN: Continue the present care. Continue the present medications as ordered. Monitor the blood pressure and heart rate closely. The patient is already on clonidine, atorvastatin, clopidogrel, hydralazine, if the blood pressure is still elevated might have to increase hydralazine to 3 times a day housekeeping aid and will follow up. ANA ZELAYA MD CM:PNTRANS 0740 1409 ANA ZELAYA MD 08/07/16 1409 interface
[2016-08-01 00:40] VITALS: BP 165/75
[2016-08-01 18:39] VITALS: BP 161/65
[~2016-08-01 18:39] MED LIST changes: +LEVEMIR10 ML SC
[2016-08-01 19:50] LABS: BASO # 0.1 10*3/uL (0.0-0.1); BASO % 0.6 % (0.0-1.0); EOS # 0.1 10*3/uL (0.0-0.4); EOS % 1.3 % (1.0-4.0); HEMOGLOBIN 11.5 g/dl (12.0-16.0); LYMPH # 2.1 10*3/uL (1.3-4.4); LYMPH % 18.8 % (27.0-41.0); MEAN CELL VOLUME 89.4 fl (81.0-99.0); MEAN CORPUSCULAR HGB 27.8 pg (27.0-31.0); MEAN CORPUSCULAR HGB CONC 31.1 g/dl (33.0-37.0); MEAN PLATELET VOLUME 9.9 fl (9.6-12.3); MONO # 0.8 10*3/uL (0.1-1.0); MONO % 7.2 % (3.0-9.0); NEUT % 71.7 % (47.0-73.0); PLATELET COUNT AUTOMATED 356 10*3/uL (130-400); RED BLOOD COUNT 4.14 10*6/uL (4.10-5.10); RED CELL DISTRI WIDTH 15.3 % (0-14.5); WHITE BLOOD COUNT 11.2 10*3/uL (4.8-10.8)
[2016-08-01 20:14] LABS: ALBUMIN 3.2 gm/dl (3.1-4.5); BILIRUBIN, TOTAL 0.4 mg/dl (0.2-1.0); MAGNESIUM 1.7 mg/dL (1.5-2.1); POTASSIUM 3.9 mmol/L (3.5-5.1); TOTAL PROTEIN 7.7 gm/dL (6.4-8.2)
[2016-08-01 20:21] LABS: TROPONIN I 0.288 ng/ml (<0.045)
[2016-08-01 21:44] VITALS: BP 178/82
[2016-08-01 21:45] LABS: BILIRUBIN NEGATIVE (NEGATIVE); BLOOD TRACE-INTACT (NEGATIVE); CLARITY SL CLOUDY (CLEAR); COLOR YELLOW (YELLOW); GLUCOSE TRACE (NEGATIVE); KETONE NEGATIVE (NEGATIVE); LEUKO ESTERASE TRACE (NEGATIVE); NITRITE NEGATIVE (NEGATIVE); PROTEIN 3+ (NEGATIVE); SPECIFIC GRAVITY 1.015 (1.005-1.030); UROBILINOGEN 0.2 E.U./dl (0.2-1.0)
[2016-08-01 22:00] VITALS: BP 165/70
[2016-08-01 22:07] LABS: BACTERIA TRACE; RBC 0-2 rbc/hpf (0-2); URINE REFLEX COMMENT YES (NO)
[2016-08-01 23:15] VITALS: BP 128/56
[2016-08-01 23:40] VITALS: BP 165/76
[2016-08-02] MEDS ORDERED: NOVOLOG MI100 UNIT/2 SQ (00:13)
[2016-08-02 05:37] VITALS: BP 143/56
[2016-08-02 06:14] LABS: BASO # 0.1 10*3/uL (0.0-0.1); BASO % 0.6 % (0.0-1.0); EOS # 0.1 10*3/uL (0.0-0.4); EOS % 0.7 % (1.0-4.0); HEMATOCRIT 32.4 % (37.0-47.0); HEMOGLOBIN 10.2 g/dl (12.0-16.0); LYMPH # 2.3 10*3/uL (1.3-4.4); LYMPH % 20.7 % (27.0-41.0); MEAN CELL VOLUME 89.5 fl (81.0-99.0); MEAN CORPUSCULAR HGB 28.2 pg (27.0-31.0); MEAN CORPUSCULAR HGB CONC 31.5 g/dl (33.0-37.0); MEAN PLATELET VOLUME 9.7 fl (9.6-12.3); MONO # 0.9 10*3/uL (0.1-1.0); MONO % 7.8 % (3.0-9.0); NEUT # 7.6 10*3/uL (2.3-7.9); NEUT % 69.8 % (47.0-73.0); PLATELET COUNT AUTOMATED 375 10*3/uL (130-400); RED BLOOD COUNT 3.62 10*6/uL (4.10-5.10); RED CELL DISTRI WIDTH 15.3 % (0-14.5); WHITE BLOOD COUNT 10.9 10*3/uL (4.8-10.8)
[2016-08-02 06:25] LABS: CKMB 1.9 ng/ml (0.5-3.6)
[2016-08-02 06:38] LABS: TROPONIN I 0.31 ng/ml (<0.045)
[2016-08-02 06:46] LABS: INTERNATIONAL NORM RATIO 1.1 (2.0-3.5); PROTHROMBIN TIME 11.4 SECONDS (9.0-12.4)
[2016-08-02 07:06] LABS: MAGNESIUM 1.8 mg/dL (1.5-2.1); PHOSPHOROUS 2.8 mg/dL (2.5-4.9); POTASSIUM 3.9 mmol/L (3.5-5.1)
[2016-08-02 07:13] LABS: FREE T4 1.41 ng/dl (0.76-1.46); THYROID STIM HORMONE (HS) 2.82 uIU/ml (0.358-4.75)
[2016-08-02 08:00] VITALS: BP 132/48
[2016-08-02 12:00] VITALS: BP 140/42
[2016-08-02 12:13] LABS: CKMB 1.7 ng/ml (0.5-3.6)
[2016-08-02 12:17] LABS: TROPONIN I 0.294 ng/ml (<0.045)
[2016-08-02 16:00] VITALS: BP 148/52
[2016-08-02 18:09] LABS: CKMB 1.6 ng/ml (0.5-3.6)
[2016-08-02 18:12] LABS: TROPONIN I 0.282 ng/ml (<0.045)
[2016-08-02 20:00] VITALS: BP 130/44
[2016-08-03] VITALS: BP 156/52
[2016-08-03 06:26] LABS: POTASSIUM 4.1 mmol/L (3.5-5.1)
[2016-08-03 08:00] VITALS: BP 155/50
[2016-08-03 16:00] VITALS: BP 114/46
[2016-08-03 20:00] VITALS: BP 140/56
[2016-08-04] VITALS: BP 158/56
[2016-08-04 08:00] VITALS: BP 162/64; BP 176/60
[2016-08-04 12:00] VITALS: BP 162/60; BP 191/76
[2016-08-04 16:00] VITALS: BP 160/78
[2016-08-04 20:00] VITALS: BP 151/50
[2016-08-05] VITALS: BP 154/59
[2016-08-05 08:00] VITALS: BP 160/70
[2016-08-05 12:00] VITALS: BP 158/71
[2016-08-05 16:00] VITALS: BP 167/90
[2016-08-05 20:00] VITALS: BP 144/66; BP 150/80
[2016-08-06] VITALS: BP 160/53
[2016-08-06 08:00] VITALS: BP 192/80
[2016-08-06 08:38] LABS: BASO # 0.1 10*3/uL (0.0-0.1); BASO % 0.5 % (0.0-1.0); EOS # 0.2 10*3/uL (0.0-0.4); EOS % 1.3 % (1.0-4.0); HEMATOCRIT 28.5 % (37.0-47.0); HEMOGLOBIN 9.1 g/dl (12.0-16.0); IG # 0.1 10*3/uL (0.0-0.1); LYMPH # 2.6 10*3/uL (1.3-4.4); LYMPH % 22.6 % (27.0-41.0); MEAN CELL VOLUME 89.9 fl (81.0-99.0); MEAN CORPUSCULAR HGB 28.7 pg (27.0-31.0); MEAN CORPUSCULAR HGB CONC 31.9 g/dl (33.0-37.0); MEAN PLATELET VOLUME 9.6 fl (9.6-12.3); MONO # 0.8 10*3/uL (0.1-1.0); MONO % 6.5 % (3.0-9.0); NEUT % 68.6 % (47.0-73.0); PLATELET COUNT AUTOMATED 362 10*3/uL (130-400); RED BLOOD COUNT 3.17 10*6/uL (4.10-5.10); RED CELL DISTRI WIDTH 15.3 % (0-14.5); WHITE BLOOD COUNT 11.7 10*3/uL (4.8-10.8)
[2016-08-06 08:50] LABS: ALBUMIN 2.9 gm/dl (3.1-4.5); PHOSPHOROUS 3.3 mg/dL (2.5-4.9); POTASSIUM 4.4 mmol/L (3.5-5.1)
[2016-08-06 16:00] VITALS: BP 186/66
[2016-08-06 20:00] VITALS: BP 141/50
[2016-08-07] VITALS: BP 180/55
[2016-08-07 08:00] VITALS: BP 188/60
[2016-08-07 12:00] VITALS: BP 188/64
[2016-08-07] MEDS ORDERED: CARVEDILOL3.125 MG PO (15:15)
[2016-08-07] MEDS ORDERED: HYDRALAZINE HYD50 MG PO (15:15)
[2016-08-07] MEDS ORDERED: AMLODIPINE BESYL5 MG PO (15:15)
[2016-08-07 16:00] VITALS: BP 160/73
== END 2016-08-07 16:56 | disposition other institution (70) | DRG 100 ==
LOC: ED 18:39 → EDHOLD 22:10 → 5E 22:10
PROVIDERS: Emergency Medicine Emergency Medical Services; Internal Medicine; Internal Medicine Nephrology; Student in an Organized Health Care Education/Training Program
PROC: 5A1D60Z (ICD-10-PCS; principal; 2016-08-05)
DX: G40.909 Epilepsy, unspecified, not intractable, without status epilepticus (principal); N18.6 End stage renal disease; E44.0 Moderate protein-calorie malnutrition; N25.81 Secondary hyperparathyroidism of renal origin; I12.0 Hypertensive chronic kidney disease with stage 5 chronic kidney disease or end stage renal disease; E11.8 Type 2 diabetes mellitus with unspecified complications; D63.1 Anemia in chronic kidney disease; I25.10 Atherosclerotic heart disease of native coronary artery without angina pectoris; R00.1 Bradycardia, unspecified; Z90.49 Acquired absence of other specified parts of digestive tract; Z87.440 Personal history of urinary (tract) infections; Z90.710 Acquired absence of both cervix and uterus; Z95.818 Presence of other cardiac implants and grafts; Z82.3 Family history of stroke; I25.2 Old myocardial infarction; Z84.1 Family history of disorders of kidney and ureter; Z88.5 Allergy status to narcotic agent; Z99.2 Dependence on renal dialysis; Z79.82 Long term (current) use of aspirin; Z79.4 Long term (current) use of insulin; Z79.899 Other long term (current) drug therapy; Z83.3 Family history of diabetes mellitus; Z68.28 Body mass index [BMI] 28.0-28.9, adult

== ENCOUNTER 2016-11-26 22:14 | Emergency (ER) | payer OTHER ==
[~2016-11-26] VITALS: Ht 170.1 cm; Wt 72.6 kg
[~2016-11-26 22:14] MED LIST changes: +AMLODIPINE BESYL5 MG PO; +CARVEDILOL3.125 MG PO
[2016-11-26 22:24] VITALS: BP 153/67
[2016-11-26 23:17] LABS: BASO % 0.4 % (0.0-1.0); EOS # 0.1 10*3/uL (0.0-0.4); EOS % 0.9 % (1.0-4.0); HEMATOCRIT 37.8 % (37.0-47.0); HEMOGLOBIN 12.3 g/dl (12.0-16.0); LYMPH # 2.5 10*3/uL (1.3-4.4); LYMPH % 32.7 % (27.0-41.0); MEAN CELL VOLUME 93.1 fl (81.0-99.0); MEAN CORPUSCULAR HGB 30.3 pg (27.0-31.0); MEAN CORPUSCULAR HGB CONC 32.5 g/dl (33.0-37.0); MEAN PLATELET VOLUME 11.3 fl (9.6-12.3); MONO # 0.5 10*3/uL (0.1-1.0); MONO % 6.4 % (3.0-9.0); NEUT # 4.5 10*3/uL (2.3-7.9); NEUT % 59.5 % (47.0-73.0); PLATELET COUNT AUTOMATED 199 10*3/uL (130-400); RED BLOOD COUNT 4.06 10*6/uL (4.10-5.10); RED CELL DISTRI WIDTH 14.7 % (0-14.5); WHITE BLOOD COUNT 7.5 10*3/uL (4.8-10.8)
[2016-11-26 23:31] LABS: POTASSIUM 4.3 mmol/L (3.5-5.1)
== END 2016-11-27 01:15 | disposition home or self-care (01) ==
LOC: ED 22:14
PROVIDERS: Emergency Medicine Emergency Medical Services
DX: T82.838A Hemorrhage due to vascular prosthetic devices, implants and grafts, initial encounter (principal); E11.22 Type 2 diabetes mellitus with diabetic chronic kidney disease; I12.0 Hypertensive chronic kidney disease with stage 5 chronic kidney disease or end stage renal disease; N18.6 End stage renal disease; Z99.2 Dependence on renal dialysis; Z88.6 Allergy status to analgesic agent; Z79.82 Long term (current) use of aspirin; Z79.899 Other long term (current) drug therapy; Z86.73 Personal history of transient ischemic attack (TIA), and cerebral infarction without residual deficits

== ENCOUNTER → 2016-12-20 | Outpatient (CLI) | payer OTHER ==
[~2016-12-20] MED LIST changes: +LEVEMIR100 UNIT/1 SC
[2016-12-20 12:20] LABS: BASO % 0.4 % (0.0-1.0); EOS # 0.1 10*3/uL (0.0-0.4); EOS % 1.5 % (1.0-4.0); HEMATOCRIT 39.3 % (37.0-47.0); HEMOGLOBIN 12.5 g/dl (12.0-16.0); LYMPH # 2.5 10*3/uL (1.3-4.4); LYMPH % 31.2 % (27.0-41.0); MEAN CELL VOLUME 93.8 fl (81.0-99.0); MEAN CORPUSCULAR HGB 29.8 pg (27.0-31.0); MEAN CORPUSCULAR HGB CONC 31.8 g/dl (33.0-37.0); MEAN PLATELET VOLUME 10.6 fl (9.6-12.3); MONO # 0.5 10*3/uL (0.1-1.0); NEUT # 4.8 10*3/uL (2.3-7.9); NEUT % 60.5 % (47.0-73.0); PLATELET COUNT AUTOMATED 320 10*3/uL (130-400); RED BLOOD COUNT 4.19 10*6/uL (4.10-5.10); RED CELL DISTRI WIDTH 15.7 % (0-14.5); WHITE BLOOD COUNT 7.9 10*3/uL (4.8-10.8)
[2016-12-20 12:37] LABS: ALBUMIN 3.6 gm/dl (3.1-4.5); CREATININE 5.37 mg/dL (0.55-1.02); POTASSIUM 4.8 mmol/L (3.5-5.1); TOTAL PROTEIN 8.1 gm/dL (6.4-8.2)
[2016-12-20 12:43] LABS: FREE T4 1.2 ng/dl (0.76-1.46); THYROID STIM HORMONE (HS) 2.32 uIU/ml (0.358-4.75)
== END | disposition home or self-care (01) ==
LOC: LAB 11:49
PROVIDERS: Internal Medicine
DX: I10 Essential (primary) hypertension (principal); E03.9 Hypothyroidism, unspecified

== ENCOUNTER 2016-12-23 22:11 | Inpatient (IN) | payer OTHER ==
[~2016-12-23] VITALS: Ht 160 cm; Wt 71.9 kg
--- NOTE | ~2016-12-23 | PR ---
[place], [place] PROGRESS NOTE NAME: LEI DRAPER UNIT #: [id number] ROOM: 510 DOCTOR: CIARA LOWE MD BIRTHDATE: [birth year] DOS: 12/25/2016 TIME OF SERVICE: 1405. The patient is a very pleasant lady. She was seen initially just after arriving from but I have been in contact with the nurse, both at dialysis and the floor as well as Radiology. She was made n.p.o. this morning, did not get her morning meds and then was taken down for dialysis catheter. Because of the aspirin and Plavix, they did not want to put a tunneled catheter in and would only do a temporary. She has not had dialysis since last week, on Saturday. Overall labs are otherwise stable. She is not having any bleeding or any abnormalities such as chest pain, shortness of breath. I received a call that she was not getting her catheter placed because of hypertension. I made some calls by outpatient dialysis and arranged for tunneled dialysis catheter to be put in as an outpatient. So, I have asked her to come back up without a catheter today. She will be able to get a catheter placed in [facility] tomorrow morning. She can be discharged from a renal standpoint. All of her labs were reviewed and vital signs were otherwise stable and generally, it does improve blood pressure when she is on her medications. All these were explained to the patient, daughter at the bedside as well as the dialysis team. We will plan for her to get a dialysis treatment after the catheter is inserted tomorrow and then resume her Saturday, Saturday, Saturday schedule. A total of 45 minutes of coordination time was done throughout the morning and this afternoon. CIARA LOWE MD CM:PNTRANS [id number] CIARA LOWE MD 12/28/16 1400 interface
--- NOTE | ~2016-12-23 | CON ---
[place], [place] REPORT OF CONSULTATION NAME: LEI DRAPER UNIT #: [id number] ROOM: 510 DOCTOR: CIARA LOWE MD BIRTHDATE: [birth year] DOS: 12/24/2016 REQUESTING PHYSICIAN: Dr. Welsh. REASON FOR CONSULTATION: ESRD. HISTORY OF PRESENT ILLNESS: The patient is a pleasant 86-year-old woman known to me very well for her history of end-stage renal disease and CKD followup prior to that. She has been on dialysis Saturday, Saturday and Saturday at [facility] under my care. She was reticent to start dialysis in the first place, but then decided that she would want to and did not allow me to get a fistula created. She started dialysis with a tunneled dialysis catheter, which after a while became very difficult to use. She underwent a catheter replacement. After that catheter was replaced, it worked fairly well. Recently, she has been having issues with hypertension which is generally labile and difficult to control. Medication adjustments have been made and then made again by PCP as well as us. I have deferred recent management changes to PCP because of this. In general, blood pressures were elevated, when she arrived 180s and now into the two teens around 216/102. She was given clonidine and hydralazine. She is also on very low dose Coreg, amlodipine, and Lasix. She has been compliant with her dialysis. She missed today's treatment and presented to the hospital because overnight when getting dressed, she noticed that she inadvertently pulled out her tunneled dialysis catheter, it was pulled out while she was trying to navigate her shirt and she must have grabbed it and pulled it right out and it fell on the floor. She did not bleed or have any other untoward side effects, no shortness of breath, no chest pains, neck pains. She is comfortable. She is eating and drinking well. She is awaiting a new catheter, which could not be placed today and it will be placed tomorrow. Her last treatment was last Saturday, the . REVIEW OF SYSTEMS: All systems reviewed and negative except for as per HPI. PAST MEDICAL HISTORY: Hypertension, diabetes, ESRD as a result of the above, history of multiple strokes, anemia, hyperkalemia, hypertension, hyperlipidemia, seizure disorder, vitamin D deficiency. SOCIAL HISTORY: Positive for son with renal failure. Daughter with chronic kidney disease as well as diabetes and hypertension, which runs in the family. SOCIAL HISTORY: No toxic habits. ALLERGIES: CODEINE. HOME MEDICATIONS: Reviewed from the electronic record. PHYSICAL EXAMINATION: VITAL SIGNS: Blood pressures are in the 118-216/64-106 range, 97.2, 56, 18, 97% on room air. GENERAL: Awake, alert and oriented. Speech is aphasic, but she understands fairly well what is going on. She is otherwise elderly, -Surinamese woman [place], [place] REPORT OF CONSULTATION NAME: LEI DRAPER UNIT #: [id number] ROOM: 510 DOCTOR: CIARA LOWE MD BIRTHDATE: [birth year] in no distress. She is lying comfortably in bed. HEENT: Oropharynx is clear. Mucous membranes are moist. NECK: Without thrush, lymphadenopathy or hematoma. LUNGS: Clear bilaterally. No audible rales, rhonchi or wheeze or subacute crepitus. CARDIOVASCULAR: Regular rate. No rub. No palpable lift or heave. ABDOMEN: Soft, obese, nontender, no rebound, no guarding. BACK: Without CVA tenderness. EXTREMITIES: Without significant edema or cyanosis. Capillary refills are acceptable. NEUROLOGIC: Speech pattern is unchanged, has some chronic contractions and gait disturbances and chronic weakness. LABORATORY AND DIAGNOSTIC DATA: White blood cell count 7.8, hemoglobin 11.7 and stable, platelets 272. Sodium 137, potassium 4.4, chloride 102, bicarbonate 25, BUN 46, creatinine 7.0, glucose 188, calcium 8.8. LFTs unremarkable. ASSESSMENT AND PLAN: 1. End-stage renal disease. Continue dialysis when an access can be reestablished. Tunneled dialysis catheter was inadvertently removed while the patient was getting dressed. New catheter will need to be placed in interventional radiology tomorrow. She needs permanent access creation, which initially she was hesitant on and now she understands that she needs to get one of these done. This has been scheduled as an outpatient. 2. Anemia, will be followed. No erythropoietin stimulating agents can be given. 3. Uncontrolled hypertension. Accelerated hypertension, this will be helped by ultrafiltration on dialysis and continuation of home medications, up titration of medications per the primary care physician. Electrolytes and acid base status are stable at this point. 4. Hyperparathyroidism. Continue phosphorus binders for hyperphosphatemia and vitamin D 2 for hyperparathyroidism. CIARA LOWE MD CM:CONSTR:REPORT OF CONSULTATION 1451 12/25/16 1015 interface
[~2016-12-23 22:11] MED LIST changes: -LEVEMIR100 UNIT/1 SC
[2016-12-23 22:25] VITALS: BP 186/65
[2016-12-23 23:13] LABS: BASO % 0.5 % (0.0-1.0); EOS # 0.1 10*3/uL (0.0-0.4); EOS % 1.6 % (1.0-4.0); HEMATOCRIT 35.9 % (37.0-47.0); HEMOGLOBIN 11.6 g/dl (12.0-16.0); LYMPH # 2.7 10*3/uL (1.3-4.4); LYMPH % 35.9 % (27.0-41.0); MEAN CELL VOLUME 93.2 fl (81.0-99.0); MEAN CORPUSCULAR HGB 30.1 pg (27.0-31.0); MEAN CORPUSCULAR HGB CONC 32.3 g/dl (33.0-37.0); MEAN PLATELET VOLUME 10.4 fl (9.6-12.3); MONO # 0.5 10*3/uL (0.1-1.0); MONO % 6.2 % (3.0-9.0); NEUT # 4.1 10*3/uL (2.3-7.9); NEUT % 55.5 % (47.0-73.0); NUCLEATED RED BLOOD CELL 0.4 % (0.0-0.0); PLATELET COUNT AUTOMATED 267 10*3/uL (130-400); RED BLOOD COUNT 3.85 10*6/uL (4.10-5.10); RED CELL DISTRI WIDTH 15.9 % (0-14.5); WHITE BLOOD COUNT 7.4 10*3/uL (4.8-10.8)
[2016-12-23 23:28] LABS: ALBUMIN 3.3 gm/dl (3.1-4.5); CREATININE 6.74 mg/dL (0.55-1.02); POTASSIUM 4.4 mmol/L (3.5-5.1); TOTAL PROTEIN 7.4 gm/dL (6.4-8.2)
[2016-12-23 23:30] VITALS: BP 118/64
--- NOTE | 2016-12-23 23:59 | NUR ---
REPORT GIVEN TO VALENTINO HASSAN
[2016-12-24 00:10] VITALS: BP 192/70
--- NOTE | 2016-12-24 00:10 | NUR ---
Time: 9 A 86 year old female admitted to 5E under services of DR. STACEY SIMON,[facility]. Pt. arrived via wheel chair from ER. Chief complaint: patient was at home with daughter getting ready for bed and when changing her clothes pulled her dialysis catheter out and pt. was brought to ER. No bleeding noted from site. sterile dressing covering area. BP elevated 192/70 on admission patient on clonidine,hydralazine, coreg, and amlodipine. Pt. states she took all her home medications. VALENTINO VANCE J
--- NOTE | 2016-12-24 00:49 | NUR ---
CALLED CELL PHONE AND MESSAGE SAID UNAVAILABLE. CALLED HOUSE PHONE AND PHONE RANG AND RANG WITH NO ANSWER. WILL CONTINUE TO CALL.
--- NOTE | 2016-12-24 01:10 | NUR ---
ABLE TO SPEAK WITH DR. IBARRA AND ORDERS RECEIVED.
[2016-12-24] MEDS ORDERED: LEVEMIR100 UNIT/1 SC (01:13)
--- NOTE | 2016-12-24 06:33 | NUR ---
CALLED DR. LOWE OFFICE AND NOTIFIED JOE OF CONSULT AND INFORMATION CONCERNING CONSULT AND SHE STATED "WE WILL LET OUR DOCTOR KNOW."
--- NOTE | 2016-12-24 06:37 | NUR ---
CALLED DR. SHARP AND NOTIFIED HIM OF THIS CONSULT NO NEW ORDERS AT THIS TIME.
[2016-12-24 08:00] VITALS: BP 188/106
--- NOTE | 2016-12-24 08:00 | NUR ---
Motor Vehicle Or Caravan Salesperson in to talk to patient. Patient states lives at HOME ON MAIN FLO[address] with HER DAUGHTER. There are 0 steps in the home. Physician: DR IBARRA Pharmacy: [facility] Home health services: NONE Patient's level of ADLs: MODERATE ASSIST Patient has working utilities: YES DME: [facility] Follow-up physician's appointment after d/c: PREFERS DAUGHTER MAKE APPT Does patient want to access PORTAL?: Discharge plan HOME. NICOLE NAJERA TAKES CARTS TO AND FROM DIALYSIS
--- NOTE | 2016-12-24 08:21 | NUR ---
CHART CHECK COMPLETE.
--- NOTE | 2016-12-24 09:15 | NUR ---
DR SHARP ROUNDED. UNABLE TO PLACE TUNNEL CATH TODAY BUT IR WILL BE IN IN AM AND DR ELLINGTON CAN PLACE IT.
[2016-12-24 12:00] VITALS: BP 216/102
[2016-12-24 12:02] LABS: BASO % 0.4 % (0.0-1.0); EOS # 0.2 10*3/uL (0.0-0.4); EOS % 1.9 % (1.0-4.0); HEMATOCRIT 37.2 % (37.0-47.0); HEMOGLOBIN 11.7 g/dl (12.0-16.0); LYMPH # 2.4 10*3/uL (1.3-4.4); LYMPH % 31.2 % (27.0-41.0); MEAN CELL VOLUME 92.8 fl (81.0-99.0); MEAN CORPUSCULAR HGB 29.2 pg (27.0-31.0); MEAN CORPUSCULAR HGB CONC 31.5 g/dl (33.0-37.0); MEAN PLATELET VOLUME 10.5 fl (9.6-12.3); MONO # 0.5 10*3/uL (0.1-1.0); MONO % 6.4 % (3.0-9.0); NEUT # 4.7 10*3/uL (2.3-7.9); PLATELET COUNT AUTOMATED 272 10*3/uL (130-400); RED BLOOD COUNT 4.01 10*6/uL (4.10-5.10); RED CELL DISTRI WIDTH 15.9 % (0-14.5); WHITE BLOOD COUNT 7.8 10*3/uL (4.8-10.8)
[2016-12-24 12:18] LABS: ALBUMIN 3.3 gm/dl (3.1-4.5); CREATININE 7.01 mg/dL (0.55-1.02); POTASSIUM 4.4 mmol/L (3.5-5.1); TOTAL PROTEIN 7.3 gm/dL (6.4-8.2)
--- NOTE | 2016-12-24 13:21 | NUR ---
HYDRALAZINE GIVEN EARLY PER DR BHATTI REQUEST FOR BP188/106.RECHECK IN 1 HR.
--- NOTE | 2016-12-24 13:21 | NUR ---
PT BP 216/[address] BHATTI. MEDICATED WITH CATAPRES PER PER JUN EARLY PER DR BHATTI REQUEST. WILL RECHECK IN 1 HR.
--- NOTE | 2016-12-24 15:02 | NUR ---
BP 188/106, HYDRALAZINE GIVEN PER JUN EARLY PER DR BHATTI.
[2016-12-24 16:00] VITALS: BP 180/82
--- NOTE | 2016-12-24 17:02 | NUR ---
BP 186/78, LASIX GIVEN PER MAR PER DR BHATTI REQUEST.
[2016-12-24 20:00] VITALS: BP 192/86
--- NOTE | 2016-12-24 21:05 | NUR ---
PT RESTING IN BED. C/O NECK AND BACK PAIN. CALLED DR. BUCHANAN ORDER TAKEN AND REVIEWED. TOLERATED ROUTINE MED WITH NO PROBLEM. CALL LIGHT IN REACH.
--- NOTE | 2016-12-24 21:08 | NUR ---
LET DR. BUCHANAN KNOW BSG-128, PER HIM HOLD LEVEMIR FOR THIS EVENING. ALSO AWARE BP 192/86, MADE AWARE GAVE EVENING BP MEDS. WILL RECHECK AND MONITOR.
--- NOTE | 2016-12-24 22:15 | NUR ---
PT MEDICATED WITH TYLENOL TWO TAB PO PER PRN ORDER, SEE EMAR. FOR C/O NECK AND BACK PAIN, RATES PAIN 7 ON PAIN SCALE. TOLERATED ROUTINE MED WITH NO PROBLEM. CALL LIGHT IN REACH.
--- NOTE | 2016-12-24 23:00 | NUR ---
PAIN MEDICATION EFFECTIVE, PAIN SUBSIDED, 07/06
[2016-12-25] VITALS (7 sets, daily range): BP systolic 127–270; BP diastolic 62–125
--- NOTE | 2016-12-25 06:30 | NUR ---
PATIENT HAS BEEN NPO SINCE MIDNIGHT. BGM= 177 NO INSULIN GIVEN. BED BATH GIVEN, CLEAN GOWN, SHEETS CHANGED, TEETH BRUSHED, ALLYN HOSE PLACED. RESP. EASY, NO S/S OF DISTRESS.
[2016-12-25 06:45] LABS: BASO % 0.4 % (0.0-1.0); EOS # 0.2 10*3/uL (0.0-0.4); EOS % 2.6 % (1.0-4.0); HEMATOCRIT 36.1 % (37.0-47.0); HEMOGLOBIN 11.7 g/dl (12.0-16.0); LYMPH # 2.2 10*3/uL (1.3-4.4); LYMPH % 30.2 % (27.0-41.0); MEAN CELL VOLUME 92.3 fl (81.0-99.0); MEAN CORPUSCULAR HGB 29.9 pg (27.0-31.0); MEAN CORPUSCULAR HGB CONC 32.4 g/dl (33.0-37.0); MEAN PLATELET VOLUME 10.7 fl (9.6-12.3); MONO # 0.4 10*3/uL (0.1-1.0); MONO % 5.6 % (3.0-9.0); NEUT # 4.4 10*3/uL (2.3-7.9); NEUT % 60.9 % (47.0-73.0); PLATELET COUNT AUTOMATED 297 10*3/uL (130-400); RED BLOOD COUNT 3.91 10*6/uL (4.10-5.10); RED CELL DISTRI WIDTH 15.9 % (0-14.5); WHITE BLOOD COUNT 7.3 10*3/uL (4.8-10.8)
[2016-12-25 07:03] LABS: ALBUMIN 3.2 gm/dl (3.1-4.5); CREATININE 7.36 mg/dL (0.55-1.02); TOTAL PROTEIN 7.2 gm/dL (6.4-8.2)
--- NOTE | 2016-12-25 08:38 | NUR ---
SPOKE TO RADIOLOGY AND THEY STATED THEY WON'T DO A PERMANENT CATH TODAY DO TO PT RECEIVING ASPIRIN AND PLAVIX. AND IF THEY HAVE TO THEY CAN DO A TEMPORARY CATH PLACEMENT TODAY BUT PT WILL NEED TO HAVE STAT LABS INCLUDING PLT, PTT AND INR PRIOR TO SURGERY. CALL PLACED TO DR LOWE FOR ORDERS
--- NOTE | 2016-12-25 09:06 | NUR ---
DID NOT RECEIVED RETURN PHONECALL FROM DR LWOE. I DID SPEAK TO DR BHATIT AND SHE GAVE ME THE ORDERS FOR THE LABS THAT WERE NEEDED FOR SURGERY.
[2016-12-25 09:39] LABS: ACT PARTIAL THROMBO TIME 27.5 SECONDS (20.8-31.5)
--- NOTE | 2016-12-25 10:01 | NUR ---
PT HAS NO IV ACCESS. DR BHATTI NOTIFIED AND SHE SAID IT IS OK NOT TO GIVE IV APRESOLINE.
--- NOTE | 2016-12-25 11:15 | NUR ---
PT TAKEN DOWN TO SURGERY AT THIS TIME. NOTIFIED THEM OVER THE PHONE THAT SHE DID NOT HAVE IV ACCESS AND WAS ATTEMPTING TO GET IT. THEY SAID THAT IT'S OK AND THAT SHE IS ONLY GETTING A LOCAL ANESTHETIC. THAT IF THEY NEED IV ACCESS THEY WILL GET IT DOWNSTAIRS.
--- NOTE | 2016-12-25 13:20 | NUR ---
SURGERY CALLED ME AND ASKED IF I COULD SEND DOWN HER CLONIDINE AT THIS TIME BECAUSE HER BP IS ELEVATED AND THAT DR HIGGINS WON'T DO THE PROCEDURE WITH HER PRESSURE BEING THAT HIGH.
--- NOTE | 2016-12-25 13:59 | NUR ---
DR LOWE ON FLOOR AND HAD ME CALL SURGERY AT THIS TIME TO SEE IF PT HAS HAD TEMP CATH PLACED AND IF NOT JUST TO HAVE HER SENT BACK TO THE FLOOR. THAT HE WILL JUST SCHEDULE IT OUTPATIENT TOMORROW.
--- NOTE | 2016-12-25 14:01 | NUR ---
TEMPORARY DIALASIS PLACEMENT CANCELED PER DR. YANG D/T ELEVATED BLOOD PRESSURE.
--- NOTE | 2016-12-25 15:54 | NUR ---
PT READY FOR DISCHARGE AND HAS EATEN LUNCH.
--- NOTE | 2016-12-25 16:01 | NUR ---
DISCHARGED AT THIS TIME VIA WHEELCHAIR. VERBALIZED UNDERSTANDING OF DISCHARGE INSTRUCTIONS.
== END 2016-12-25 16:01 | disposition home or self-care (01) | DRG 314 ==
LOC: ED 22:11 → 5E 23:11 → EDHOLD 23:11 → 5E 23:14
PROVIDERS: Internal Medicine; Nurse Practitioner Family; ADMIT Internal Medicine
DX: T82.898A Other specified complication of vascular prosthetic devices, implants and grafts, initial encounter (principal); N18.6 End stage renal disease; I12.0 Hypertensive chronic kidney disease with stage 5 chronic kidney disease or end stage renal disease; E11.22 Type 2 diabetes mellitus with diabetic chronic kidney disease; I16.1 Hypertensive emergency; N25.81 Secondary hyperparathyroidism of renal origin; I25.10 Atherosclerotic heart disease of native coronary artery without angina pectoris; E03.9 Hypothyroidism, unspecified; D64.9 Anemia, unspecified; E11.65 Type 2 diabetes mellitus with hyperglycemia; M54.9 Dorsalgia, unspecified; E66.3 Overweight; G40.909 Epilepsy, unspecified, not intractable, without status epilepticus; Y83.8 Other surgical procedures as the cause of abnormal reaction of the patient, or of later complication, without mention of misadventure at the time of the procedure; Z68.28 Body mass index [BMI] 28.0-28.9, adult; I25.2 Old myocardial infarction; Z86.73 Personal history of transient ischemic attack (TIA), and cerebral infarction without residual deficits; Z90.710 Acquired absence of both cervix and uterus; Z90.49 Acquired absence of other specified parts of digestive tract; Z99.2 Dependence on renal dialysis; Z79.02 Long term (current) use of antithrombotics/antiplatelets; Z79.4 Long term (current) use of insulin; Z79.82 Long term (current) use of aspirin; Z79.899 Other long term (current) drug therapy; Z88.5 Allergy status to narcotic agent; Z84.1 Family history of disorders of kidney and ureter; Z82.3 Family history of stroke; Z82.49 Family history of ischemic heart disease and other diseases of the circulatory system; Y92.89 Other specified places as the place of occurrence of the external cause

== ENCOUNTER 2017-01-29 11:25 | Inpatient (IN) | payer MEDICARE, MEDICAID ==
[~2017-01-29] VITALS: Ht 160 cm; Wt 71.7 kg
[2017-01-29] VITALS (8 sets, daily range): BP systolic 105–201; BP diastolic 48–66
--- NOTE | ~2017-01-29 | PR ---
[place], [place] PROGRESS NOTE NAME: LEI DRAPER UNIT #: [id number] ROOM: [facility] DOCTOR: MAGY ALBRECHT DO BIRTHDATE: [birth year] DOS: 01/30/2017 PROCEDURE: Central line placement. PROCEDURE IN DETAIL: This is an 86-year-old female, currently admitted to Dr. Welsh's service in the ICU. The medicine team was having difficulty obtaining IV access, so they consulted me to assist. A central line was placed in the right femoral artery using ultrasound guidance, using a Seldinger technique. No complications during the procedure. Sterile technique was maintained at all times. MAGY ALBRECHT DO CM:PNTRANS 14 [phone] MAGY ALBRECHT DO 01/30/172037 interface
--- NOTE | ~2017-01-29 | O ---
[place], [place] OPERATIVE NOTE NAME: LEI DRAPER UNIT #: [id number] ROOM: [facility] DOCTOR: YANA SIMON,[facility] BIRTHDATE: [birth year] DOS: GASTROENDOSCOPIC REPORT INDICATION: The patient has presented with GI bleed, source of which is under investigation. The patient has been on clopidogrel and aspirin. The patient has received 2 units of packed cells transfusion, still her H and H remains about 7.9 and 23.9. PROCEDURE: Today's procedure part of investigation is colonoscopy plus epinephrine lavage hemostasis therapy. PREMEDICATION: Versed and Diprivan. SCOPE: Olympus forward-viewing colonoscope 10L video. REPORT: After putting the patient in the left lateral position and after application of lubricant to the scope, the scope was introduced; thereafter, under direct visualization, advanced through the length of colon without difficulty. Difficulty being presence of large volume of blood and blood clots. Diverticulosis of moderate to severe degree encountered along the way till we get to the right colon. Presence of the clot and density of bloody is far more in the right colon. We were not able to explore cecum definitely because of the presence of large clots in the right colon. However, epinephrine 1 amp flush was organized and right colon as much as possible was lavaged with this amp of epinephrine. Scope was gradually withdrawn. The patient extubated, tolerated procedure well. IMPRESSION: Lower gastrointestinal bleed, source ambiguous due to retained blood and blood clot, moderate to severe diverticulosis, possibility of diverticular bleed versus cecal carcinoma cannot be ruled out, status post colonoscopy and hemostasis therapy. PLAN AND DISCUSSION: We are going to keep her on clear liquid in expectation of further bleeding in case we have to re-scope her in the next day or 2. We are going to start her on Sandostatin 50 mcg loading and 25 mcg per hour continuous drip for the next 48 hours. We are going to give her 1 unit of platelets 6 pack due to the fact that she has been on aspirin and clopidogrel and most likely she has thrombocytopathy that she is going to be addressed and we are going to avoid other blood thinners for DVT concerns and reassessment with H and H and 2 units of packed cell again today is going to be given and clinical reassessment. [place], [place] OPERATIVE NOTE NAME: LEI DRAPER UNIT #: [id number] ROOM: [facility] DOCTOR: YANA SIMON,FLORECITA BIRTHDATE: [birth year] FLORECITA MILLAN MD CM:OPRECORD:OPERATIVE NOTE [phone] FLORECITA MILLAN MD 01/30/171651 interface
--- NOTE | ~2017-01-29 | O ---
[place], [place] OPERATIVE NOTE NAME: LEI DRAPER UNIT #: [id number] ROOM: [facility] DOCTOR: FLORECITA MILLAN MD BIRTHDATE: [birth year] DOS: GASTROENDOSCOPIC REPORT INDICATION: This is an 86-year-old patient who presented with chief complaint of GI bleed and I have been asked for assessment of the patient in this regard. The patient has been having copious bleeding. The patient had to be transferred to ICU because of activity of bleeding. Initial H and H was 8.5 and 27. She received 2 units of blood transfusion. A latest CBC this morning still H and H of 7.6 and 23.9. She has been on Plavix and aspirin. Her INR has been 1.0, her platelet count has been 238. Her chest x-ray was examined, no acute process was identified. PAST MEDICAL HISTORY: Renal insufficiency, dialysis dependency, coronary artery disease, non-STEMI, hyperparathyroidism, hyperlipidemia, essential hypertension, TIAs, diabetes mellitus. PAST SURGICAL HISTORY: Hysterectomy, cholecystectomy, tonsillectomy. SOCIAL HISTORY: Nonsmoker, nonalcohol consumer. FAMILY HISTORY: Noncontributory. ALLERGIES: CODEINE. Other medications reviewed including clopidogrel and . PROCEDURE: Today's procedure part of investigation is panendoscopy and colonoscopy. PREMEDICATIONS: Versed and Diprivan. SCOPE: Olympus forward-viewing gastroscope Q10 video. REPORT: After putting the patient in the left lateral position and after application of lubricant to the scope, the scope was introduced; thereafter, under direct visualization, advanced through the length of esophagus without difficulty. Hiatal hernia was noticed, which is approximately 2.5 cm. Gastric pouch was entered, gastritis seen, duodenal bulb second and third part within normal limits. No activity of bleeding seen. The patient extubated, tolerated procedure well. IMPRESSION: Hiatal hernia, mild gastritis, no bleeding, contribution from upper gastrointestinal tract. We are going to proceed with colonoscopy. [place], [place] OPERATIVE NOTE NAME: LEI DRAPER UNIT #: [id number] ROOM: [facility] DOCTOR: FLORECITA MILLAN MD BIRTHDATE: [birth year] FLORECITA MILLAN MD CM:MERLY:OPERATIVE NOTE [phone] FLORECITA MILLAN MD 01/30/17 1637 interface
[~2017-01-29 11:25] MED LIST changes: +LEVEMIR100 UNIT/1 SC
--- NOTE | 2017-01-29 12:21 | NUR ---
PT UP TO USE RESTROOM. 50ML OF BOBO BLOOD NOTED.
[2017-01-29 12:36] LABS: BASO % 0.5 % (0.0-1.0); EOS # 0.1 10*3/uL (0.0-0.4); EOS % 0.8 % (1.0-4.0); HEMATOCRIT 27.2 % (37.0-47.0); HEMOGLOBIN 8.5 g/dl (12.0-16.0); LYMPH # 2.2 10*3/uL (1.3-4.4); LYMPH % 27.2 % (27.0-41.0); MEAN CELL VOLUME 95.1 fl (81.0-99.0); MEAN CORPUSCULAR HGB 29.7 pg (27.0-31.0); MEAN CORPUSCULAR HGB CONC 31.3 g/dl (33.0-37.0); MEAN PLATELET VOLUME 10.5 fl (9.6-12.3); MONO # 0.5 10*3/uL (0.1-1.0); MONO % 6.1 % (3.0-9.0); NEUT # 5.2 10*3/uL (2.3-7.9); NEUT % 65.3 % (47.0-73.0); PLATELET COUNT AUTOMATED 238 10*3/uL (130-400); RED BLOOD COUNT 2.86 10*6/uL (4.10-5.10)
[2017-01-29 12:45] LABS: ACT PARTIAL THROMBO TIME 24.7 SECONDS (20.8-31.5)
[2017-01-29 12:50] LABS: ALBUMIN 3.1 gm/dl (3.1-4.5); CREATININE 4.91 mg/dL (0.55-1.02); POTASSIUM 4.8 mmol/L (3.5-5.1); TOTAL PROTEIN 6.7 gm/dL (6.4-8.2)
--- NOTE | 2017-01-29 14:30 | NUR ---
A 86, admitted to , under the services of TANYA Borges MD with a diagnosis of GI BLEED. Chief complaint is RECTAL BLEED. Patient arrived via ambulatory from ER. Monitor applied. Initial assessment completed. Vital signs taken and recorded. TANYA BORGES MD notified of admission to the unit. Orders received. See assessment for past medical history, medications and allergies. Patient and/or family oriented to unit. [facility] ICCU visitation policy reviewed. Clothing/patient valuable form completed. FLORINA TOLEDO
--- NOTE | 2017-01-29 15:33 | NUR ---
DR. LOWE'S ANSWERING SERVICE NOTIFIED OF CONSULT.
[2017-01-29] MEDS ORDERED: COREG6.25 MG PO (16:00)
--- NOTE | 2017-01-29 16:00 | NUR ---
SMALL AMOUNT BRIGHT RED BLOOD WITH CLOTS NOTED IN BEDPAN.
[2017-01-29] MEDS ORDERED: HYDRALAZINE HYD50 MG PO (16:03)
--- NOTE | 2017-01-29 17:05 | NUR ---
FIRST UNIT BLOOD HUNG ORDERED.
--- NOTE | 2017-01-29 17:15 | NUR ---
TRANSFERRED TO ICCU 6 VIA BED. REPORT CALLED TO RN.
--- NOTE | 2017-01-29 17:45 | NUR ---
PT TRANSFERED IN TO ICCU ROOM 6. PT ALERT AND ORIENTED. 1 UNIT OF BLOOD INFUSING. BP 201/66. DR HENDERSON IN THE UNIT AT THIS TIME AND MADE AWARE OF ELEVATED BP.
--- NOTE | 2017-01-29 18:36 | NUR ---
PT MEDICATED WITH 50MG HYDRALAZINE FOR ELEVATED BP. WILL CONTINUE TO MONITOR.
--- NOTE | 2017-01-29 20:05 | NUR ---
1929 BLOOD ABSORBED. PT TOLERATED WELL. DRANK ALL OF MIRALAX PREP. TOLERATED WELL. 1999 UP TO [facility] [place] WITH 1 ASSIST. WEAK. INCONTINENT OF LIQUID STOOL. BATH TAKEN AND LINENS CHANGED. HEP LOCK INTACT. NO C/O'S PAIN OR DISCOMFORT VOICED. BP NOW 158/64. NO DISTRESS NOTED.
--- NOTE | 2017-01-29 22:14 | NUR ---
HAS HAD MULTIPLE BLOODY STOOLS ON BEDPAN. REMAINS ALERT. VSS. REMAINS WITHOUT C/O'S PAIN OR DISCOMFORT.
[2017-01-29 22:43] LABS: HEMATOCRIT 27.8 % (37.0-47.0)
[2017-01-30] VITALS (14 sets, daily range): BP systolic 94–150; BP diastolic 40–99
--- NOTE | 2017-01-30 00:09 | NUR ---
0000 HAD LARGE EMESIS CLEAR FLUID AND SMALL AMOUNT UNDIGESTED FOOD. COMPLETE BED CHANGE DONE. ZOFRAN IV FOR NAUSEA. WILL MONITOR. NPO FOR EGD/COLO IN AM.
--- NOTE | 2017-01-30 00:23 | NUR ---
0015 DR. BUCHANAN NOTIFIED OF PT MPST RECENT H AND H RESULT. NO NEW ORDERS RECEIVED.
--- NOTE | 2017-01-30 01:39 | NUR ---
EARLIER ZOFRAN EFFECTIVE. RESTING IN BED WITH EYES CLOSED.
--- NOTE | 2017-01-30 04:03 | NUR ---
REMAINS SLEEPING WIHTOUT DISTRESS.
[2017-01-30 04:38] LABS: BASO % 0.2 % (0.0-1.0); EOS % 0.3 % (1.0-4.0); HEMATOCRIT 23.9 % (37.0-47.0); HEMOGLOBIN 7.6 g/dl (12.0-16.0); LYMPH # 2.3 10*3/uL (1.3-4.4); LYMPH % 26.4 % (27.0-41.0); MEAN CORPUSCULAR HGB CONC 31.8 g/dl (33.0-37.0); MEAN PLATELET VOLUME 10.8 fl (9.6-12.3); MONO # 0.5 10*3/uL (0.1-1.0); MONO % 5.9 % (3.0-9.0); NEUT # 5.8 10*3/uL (2.3-7.9); NEUT % 67.1 % (47.0-73.0); PLATELET COUNT AUTOMATED 188 10*3/uL (130-400); RED BLOOD COUNT 2.62 10*6/uL (4.10-5.10); RED CELL DISTRI WIDTH 19.8 % (0-14.5); WHITE BLOOD COUNT 8.6 10*3/uL (4.8-10.8)
[2017-01-30 04:42] LABS: MEAN CELL VOLUME 91.2 fl (81.0-99.0)
[2017-01-30 05:04] LABS: CREATININE 5.75 mg/dL (0.55-1.02); MAGNESIUM 2.1 mg/dL (1.5-2.1); PHOSPHOROUS 4.5 mg/dL (2.5-4.9); POTASSIUM 4.8 mmol/L (3.5-5.1)
--- NOTE | 2017-01-30 05:33 | NUR ---
INCONTINENT OF BRIGHT RED BLOOD RECTALLY, AND URINE. NO STOOL NOTED. PAINTER PLATE HERE TO DIALYZE PT.
--- NOTE | 2017-01-30 05:55 | NUR ---
DR. BUCHANAN NOTIFIED OF NEWEST H AND H RESULTS. NO NEW ORDERS RECEIVED.
--- NOTE | 2017-01-30 06:02 | NUR ---
MESSAGE LEFT ON DR. MILLAN'S ANSWERING MACHINE REGARDING LOW H AND H. DR. LOWE BEEPED WELL. PT RESTING IN BED. DIALYSIS CONT.HEP LOCK INTACT CAITY. REMAINS NPO. NO DISTRESS NOTED. CONDITION GUARDED.
--- NOTE | 2017-01-30 06:11 | NUR ---
DR. MILLAN ANSWERED - ORDERS RECEIVED.
--- NOTE | 2017-01-30 06:33 | NUR ---
PT HR DROPS IN THE 40'S AND THEN IS UP IN THE 110'S. DILAYSIS STOPPED.PT IS GAGGING. DR. SMITH CALLED TO COME SEE PT. ZOFRAN IV GIVEN FOR NAUSEA. 2ND UNIT OF PRBC'S BEING OBTAINED AT PRESENT TIME. BP 124/40O. PULSE OX 99% ON 2L 02 VIA NC. WILL CONT TO MONITOR 0635. DR. SMITH HERE
--- NOTE | 2017-01-30 06:48 | NUR ---
DIALYSIS RESUMED. 2ND UNIT OF PRBC'S STARTED TO BE INFUSED PER LANDSCAPE FOREMAN AFTER PROPER IDENTIFICATION PER 2 RN'S. EARLIER ZOFRAN EFFECTIVE. PT RESTING IN BED ON RIGHT SIDE WITH EYES CLOSED. SEE INTERVENTION SCREEN FOR ALL PERTINENENT VS.
[2017-01-30 07:01] LABS: VITAMIN D, 25-HYDROXY 34.2 ng/mL (30-100)
--- NOTE | 2017-01-30 08:30 | NUR ---
Retort Load Expediter in to talk to patient. Patient states lives at HOME with HER DAUGHTER. There are 0 steps in the home. Physician: DR IBARRA Pharmacy: [facility] Home health services: NONE Patient's level of ADLs: MINIMAL ASSIST Patient has working utilities: YES DME: Follow-up physician's appointment after d/c: PREFERS TO MAKE HER OWN APPT Does patient want to access PORTAL?: Discharge plan HOME. NICOLE NAJERA PT IS M-W-F SIALYSIS AND USES CARTS FOR TRANSPORTATION
[2017-01-30 08:40] LABS: HEMATOCRIT 27.8 % (37.0-47.0); HEMOGLOBIN 9.2 g/dl (12.0-16.0)
--- NOTE | 2017-01-30 11:38 | NUR ---
PATIENT TAKEN TO SURGERY FOR EGD/COLO. DAUGHTER WAYNE NOTIFIED.
[2017-01-30 13:16] LABS: HEMOGLOBIN 8.2 g/dl (12.0-16.0)
--- NOTE | 2017-01-30 14:00 | NUR ---
TALKED WITH REGARDING POOR IV ACCESS. REQUESTING A LINE PLACEMENT. REQUESTING RN TO CALL TO DISCUSS BEST ACCESS THAT THEY RECOMMEND.
--- NOTE | 2017-01-30 14:05 | NUR ---
BEEPED PER REQUEST.
--- NOTE | 2017-01-30 14:30 | NUR ---
CALLED REGARDING HAS NOT RETURNED CALL. STATED THAT HE WOULD CALL HIMSELF REGARDING IV ACCESS.
--- NOTE | 2017-01-30 15:15 | NUR ---
AND HERE TO PLACE [facility]. TIME OUT PERFORMED PRIOR TO PROCEDURE.
[2017-01-30 18:24] LABS: BASO % 0.1 % (0.0-1.0); HEMATOCRIT 22.4 % (37.0-47.0); HEMOGLOBIN 7.2 g/dl (12.0-16.0); LYMPH # 1.9 10*3/uL (1.3-4.4); LYMPH % 10.4 % (27.0-41.0); MEAN CELL VOLUME 89.2 fl (81.0-99.0); MEAN CORPUSCULAR HGB 28.7 pg (27.0-31.0); MEAN CORPUSCULAR HGB CONC 32.1 g/dl (33.0-37.0); MEAN PLATELET VOLUME 10.5 fl (9.6-12.3); MONO # 0.7 10*3/uL (0.1-1.0); MONO % 3.8 % (3.0-9.0); NEUT # 15.2 10*3/uL (2.3-7.9); NEUT % 85.4 % (47.0-73.0); PLATELET COUNT AUTOMATED 157 10*3/uL (130-400); RED BLOOD COUNT 2.51 10*6/uL (4.10-5.10); RED CELL DISTRI WIDTH 18.2 % (0-14.5); WHITE BLOOD COUNT 17.8 10*3/uL (4.8-10.8)
--- NOTE | 2017-01-30 18:40 | NUR ---
CALLED REGARDING HEMOGLOBIN RESULT. NEW ORDERS RECEIVED TO TRANSFUSE 2 UNITS PRBCS.
--- NOTE | 2017-01-30 21:30 | NUR ---
PLATELETS COMPLETE AT THIS TIME.
--- NOTE | 2017-01-30 22:00 | NUR ---
PATIENT HAD LARGE LIQUID EMESIS X1. YELLOW IN COLOR. DENIES NAUSEA IMMEDIATELY FOLLOWING EMESIS.
[2017-01-31] VITALS (23 sets, daily range): BP systolic 112–186; BP diastolic 35–82
--- NOTE | 2017-01-31 00:13 | NUR ---
24 HR chart check completed.
--- NOTE | 2017-01-31 01:22 | NUR ---
CONTINUES TO DENY NAUSEA.
[2017-01-31 06:05] LABS: BASO % 0.3 % (0.0-1.0); EOS % 0.2 % (1.0-4.0); HEMATOCRIT 27.1 % (37.0-47.0); HEMOGLOBIN 9.2 g/dl (12.0-16.0); LYMPH # 1.2 10*3/uL (1.3-4.4); LYMPH % 10.5 % (27.0-41.0); MEAN CORPUSCULAR HGB 29.9 pg (27.0-31.0); MEAN CORPUSCULAR HGB CONC 33.9 g/dl (33.0-37.0); MEAN PLATELET VOLUME 10.7 fl (9.6-12.3); MONO # 0.5 10*3/uL (0.1-1.0); MONO % 4.6 % (3.0-9.0); NEUT # 9.6 10*3/uL (2.3-7.9); NEUT % 84.2 % (47.0-73.0); PLATELET COUNT AUTOMATED 177 10*3/uL (130-400); RED BLOOD COUNT 3.08 10*6/uL (4.10-5.10); RED CELL DISTRI WIDTH 15.8 % (0-14.5); WHITE BLOOD COUNT 11.4 10*3/uL (4.8-10.8)
--- NOTE | 2017-01-31 06:22 | NUR ---
ZOFRAN GIVEN FOR C/O NAUSEA.
[2017-01-31 06:31] LABS: ALBUMIN 2.8 gm/dl (3.1-4.5); POTASSIUM 4.4 mmol/L (3.5-5.1)
[2017-01-31 06:36] LABS: CREATININE 4.16 mg/dL (0.55-1.02); TOTAL PROTEIN 5.2 gm/dL (6.4-8.2)
--- NOTE | 2017-01-31 06:49 | NUR ---
DR. MILLAN NOTIFIED THAT PATIENT CONTINUES TO HAVE BRIGHT RED BLOODY STOOLS. NEW ORDERS RECEIVED FOR BLEEDING SCAN. DR. MILLAN REQUESTS THAT WE CALL HIM WITH THE RESULTS.
--- NOTE | 2017-01-31 07:09 | NUR ---
DENIES NAUSEA. ZOFRAN EFFECTIVE.
--- NOTE | 2017-01-31 07:29 | NUR ---
PT TRANSFERED TO NUCLEAR MED FOR BLEEDING SCAN.
--- NOTE | 2017-01-31 10:24 | NUR ---
DR HENDERSON STATED HE NOTIFIED DR MILLAN OF BLEEDING SCAN RESULTS.
[2017-01-31 12:27] LABS: HEMOGLOBIN 7.9 g/dl (12.0-16.0)
--- NOTE | 2017-01-31 12:36 | NUR ---
DR HENDERSON MADE AWARE OF PT'S HGB 7.9 AND HCT OF 24.
--- NOTE | 2017-01-31 13:30 | NUR ---
SANDOSTATIN GTT INCREASED TO 50MCG/HR.
--- NOTE | 2017-01-31 14:19 | NUR ---
PT MEDICATED WITH ZOFRAN 4MG IV FOR C/O NAUSEA.
--- NOTE | 2017-01-31 15:30 | NUR ---
Discharge instructions reviewed with patient/family. Patient receptive and verbalizes understanding. Written instructions given to patient/family. OLLIE ULRICH
--- NOTE | 2017-01-31 15:34 | NUR ---
[facility] HERE TO TRANSPORT PT TO [facility].
--- NOTE | 2017-01-31 15:53 | NUR ---
REPORT GIVEN TO ZULMA AT [facility] UNIT E-7.
--- NOTE | 2017-01-31 15:54 | NUR ---
BLOOD CONTINUING TO INFUSE ON DISCHARGE.
== END 2017-01-31 15:54 | disposition short-term general hospital (02) | DRG 377 ==
LOC: ED 11:25 → ICCU 13:59 → EDHOLD 13:59 → 4E 14:06 → ICCU 16:43
PROVIDERS: Emergency Medicine; Family Medicine; Internal Medicine Hospice and Palliative Medicine; ADMIT Internal Medicine
PROC: 30233N1 Transfusion of Nonautologous Red Blood Cells into Peripheral Vein, Percutaneous Approach (ICD-10-PCS; principal; 2017-01-29)
PROC: B548ZZA Ultrasonography of Superior Vena Cava, Guidance (ICD-10-PCS; 2017-01-30)
PROC: 02HV33Z Insertion of Infusion Device into Superior Vena Cava, Percutaneous Approach (ICD-10-PCS; 2017-01-30)
PROC: 3E1H78Z Irrigation of Lower GI using Irrigating Substance, Via Natural or Artificial Opening (ICD-10-PCS; 2017-01-30)
PROC: 30233R1 Transfusion of Nonautologous Platelets into Peripheral Vein, Percutaneous Approach (ICD-10-PCS; 2017-01-30)
PROC: 5A1D70Z Performance of Urinary Filtration, Intermittent, Less than 6 Hours Per Day (ICD-10-PCS; 2017-01-30)
PROC: 0DB68ZX Excision of Stomach, Via Natural or Artificial Opening Endoscopic, Diagnostic (ICD-10-PCS; 2017-01-30)
DX: K57.31 Diverticulosis of large intestine without perforation or abscess with bleeding (principal); N18.6 End stage renal disease; I12.0 Hypertensive chronic kidney disease with stage 5 chronic kidney disease or end stage renal disease; R65.10 Systemic inflammatory response syndrome (SIRS) of non-infectious origin without acute organ dysfunction; E11.22 Type 2 diabetes mellitus with diabetic chronic kidney disease; N25.81 Secondary hyperparathyroidism of renal origin; E11.65 Type 2 diabetes mellitus with hyperglycemia; K44.9 Diaphragmatic hernia without obstruction or gangrene; D64.9 Anemia, unspecified; I25.10 Atherosclerotic heart disease of native coronary artery without angina pectoris; E78.5 Hyperlipidemia, unspecified; K29.70 Gastritis, unspecified, without bleeding; E66.3 Overweight; E03.9 Hypothyroidism, unspecified; Z99.2 Dependence on renal dialysis; Z79.4 Long term (current) use of insulin; Z88.5 Allergy status to narcotic agent; Z79.899 Other long term (current) drug therapy; Z79.82 Long term (current) use of aspirin; I25.2 Old myocardial infarction; Z86.73 Personal history of transient ischemic attack (TIA), and cerebral infarction without residual deficits; Z90.710 Acquired absence of both cervix and uterus; Z95.5 Presence of coronary angioplasty implant and graft; Z90.49 Acquired absence of other specified parts of digestive tract; Z84.1 Family history of disorders of kidney and ureter; Z82.3 Family history of stroke; Z82.49 Family history of ischemic heart disease and other diseases of the circulatory system; Z68.27 Body mass index [BMI] 27.0-27.9, adult

== ENCOUNTER 2017-04-23 17:43 | Inpatient (IN) | payer MEDICARE, OTHER ==
[2017-04-23] VITALS (7 sets, daily range): BP systolic 160–205; BP diastolic 82–94
[~2017-04-23] VITALS: Ht 160 cm; Wt 72.3 kg
--- NOTE | ~2017-04-23 | PR ---
[place], [place] PROGRESS NOTE NAME: LEI DRAPER UNIT #: [id number] ROOM: 511 DOCTOR: RAPHAEL QUINONEZ MD BIRTHDATE: [birth year] DOS: SUBJECTIVE: The patient continues to feel better. OBJECTIVE: VITAL SIGNS: Blood pressure 173/81, heart rate of 67 beats per minute, breathing 16 times per minute and temperature 98 degrees Fahrenheit. Limited exam. IMPRESSION AND PLAN: 1. The patient with severe sinus bradycardia improved after Coreg was stopped. 2. Benign essential hypertension with elevated blood pressures. I will add Norvasc to the treatment. The patient's blood pressure became elevated after stopping Coreg for her bradycardia. 3. End-stage kidney disease. The patient is on hemodialysis. 4. Hypothyroidism, treated with supplements. 5. History of coronary artery disease of the [place] vessels without chest pain. 6. Type 2 diabetes mellitus. Blood sugars appear to be reasonably controlled. The patient is on no concentrated sweet diet. 7. Mixed hyperlipidemia, treated with Lipitor. RAPHAEL QUINONEZ MD CM:PNTRANS [id number] RAPHAEL QUINONEZ MD 04/25/172318 interface
--- NOTE | ~2017-04-23 | WRIGHTHP ---
[place], [place] PATIENT HISTORY AND PHYSICAL EXAM NAME: LEI DRAPER [facility] #: [id number] UNIT #: [id number] [place] [facility] [place]CTOR: RAPHAEL QUINONEZ MD BIRTHDATE: [birth year] DOS: 04/23/2017 HISTORY OF PRESENT ILLNESS: The patient is an 87-year-old female who presented to the Emergency Department with complaints of shortness of breath. The patient was found to be severely hypertensive and recommended for admission and further management. The patient also was in sinus bradycardia. The patient was on Coreg, which was stopped and she still has remained in sinus bradycardia with the heart rates ranging from 30s to 50s range. The patient's wire mill operator, Dr. Espinal is evaluating her. The patient's blood pressures have improved with treatment and she was given intravenous hydralazine in the Emergency Department. No complaints of any chest pains. No other GI or urinary symptoms. The patient's chest x-ray showed no acute abnormality. PAST MEDICAL HISTORY: hypothyroidism, end-stage kidney failure, patient is on hemodialysis, mixed hyperlipidemia, type 2 diabetes mellitus, benign essential hypertension, coronary artery disease of [place] vessels, normocytic anemia. REVIEW OF SYSTEMS: LUNGS: Increasing shortness of breath. GASTROINTESTINAL: No nausea, vomiting, diarrhea or constipation. CARDIOVASCULAR: No chest pains or palpitations. FAMILY HISTORY: Noncontributory. HOME MEDICATIONS: The patient was on Coreg, which has been stopped, was also taking hydralazine, lisinopril, aspirin, omeprazole, levothyroxine, furosemide, Lipitor. ALLERGIES: Known allergies to CODEINE. PHYSICAL EXAMINATION: GENERAL: Alert and oriented x 3, significantly obese, in no visible distress. VITAL SIGNS: Blood pressure now is 167/49, heart rate of 46 beats per minute, breathing 19 times per minute, temperature 98 degrees Fahrenheit. LABORATORY DATA: Hemoglobin 10.7, normal platelets. BUN and creatinine 60 and 9, blood sugar 136. Normal serum electrolytes. Chest x-ray without any acute abnormality. IMPRESSION: 1. The patient presenting with severe hypertension. Blood pressures have improved with treatment. 2. Severe sinus bradycardia with varying heart rates. The patient's Coreg has been stopped and we will follow her closely in the ICU. External pacemakers have being kept on the patient's side. If the patient's heart rates do not normalize, then she may require pacemaker placement. This was discussed with Dr. Espinal, her wire mill operator. 3. Chronic End-stage kidney disease. The patient is on hemodialysis, which is being continued. [place], [place] PATIENT HISTORY AND PHYSICAL EXAM NAME: LEI DRAPER UNIT #: [id number] [place] [facility]CTOR: RAPHAEL QUINONEZ MD BIRTHDATE: [birth year] 4. Hypothyroidism, treated with levothyroxine. 5. Benign essential hypertension history. Blood pressure is being monitored. 6. Gastroesophageal reflux disease and esophagitis, treated with omeprazole, which has been continued. 7. History of coronary artery disease of the [place] vessels, without chest pains. 8. Type 2 diabetes mellitus. Blood sugar is being monitored and controlled. 9. Mixed hyperlipidemia. The patient is on diet control. RAPHAEL QUINONEZ MD CM:HISPHYS:PATIENT HISTORY AND PHYSICAL EXAMINATION [id number] RAPHAEL QUINONZE MD 04/24/17 1022 interface
--- NOTE | ~2017-04-23 | DS ---
[place], [place] DISCHARGE SUMMARY NAME: LEI DRAPER UNIT #: [id number] ROOM: 511 DOCTOR: LOBITO HOPE MD BIRTHDATE: [birth year] DOS: 04/27/2017 DIAGNOSES: 1. Poorly controlled hypertension. 2. Bradycardia from beta blockers. 3. End-stage renal failure, on dialysis. 4. Type 2 diabetes mellitus. 5. Coronary artery disease. 6. History of cerebrovascular accident. MEDICATIONS ON DISCHARGE: Most of the meds are the same as on admission: Atorvastatin 80 daily, Lasix 40 b.i.d., levothyroxine 25 mcg daily, hydralazine 25 b.i.d., insulin sliding scale, omeprazole 20 daily, aspirin 81 daily, clonidine 0.2 q. 8 hours, lisinopril 5 daily. The medication that was discontinued is Coreg and the new medication started was amlodipine 5. HOSPITAL COURSE: An 87-year-old patient who comes in with complaints that she has been dizzy and her blood pressures have been running high. Please refer to H and P dictated by Dr. Sy as well as consult note by Dr. Espinal for further details. After admission, she was found to be bradycardic, but hypotensive. Coreg was discontinued. Further adjustments in medications were made. Heart rate has come back up to fairly normal levels off the Coreg. The patient has not had any complaints since admission. This morning, she is stable and the plan is to discharge her to home to follow up with Dr. Welsh as an outpatient. LOBITO HOPE MD CM:DISCHARG [id number] LOBITO HOPE MD 04/27/17 1036 interface
--- NOTE | ~2017-04-23 | PR ---
[place], [place] PROGRESS NOTE NAME: LEI DRAPER UNIT #: [id number] ROOM: 511 DOCTOR: LOBITO HOPE MD BIRTHDATE: [birth year] DOS: SUBJECTIVE: The patient is doing fine without any complaints. Denies any chest pains, palpitations. OBJECTIVE: VITAL SIGNS: Graphic trend shows blood pressure 188/85, pulse of 61, respirations 18, temperature 97.9. LUNGS: Clear. HEART: Regular. ABDOMEN: Obese, soft, nontender. EXTREMITIES: Without any edema. ASSESSMENT AND PLAN: 1. The patient admitted with sinus bradycardia, stable and improved off beta blockers. 2. Benign hypertension, not very well controlled, amlodipine was added. 3. End-stage renal failure. The patient is stable on dialysis. The plan is to discharge home today. Follow with Dr. Welsh. LOBITO HOPE MD CM:PNTRANS [id number] [id number] LOBITO HOPE MD 04/27/17 1051 interface
--- NOTE | ~2017-04-23 | PR ---
[place], [place] PROGRESS NOTE NAME: LEI DRAPER UNIT #: [id number] ROOM: [facility] DOCTOR: MILY GARCÍA MD BIRTHDATE: [birth year] DOS: 04/25/2017 SUBJECTIVE: She is alert, oriented. She just took a walk and is rather slow and uses a walker to get around. She has not had any chest pain, but was short of breath once she sat down in her recliner. No palpitations, dizziness, had no orthopnea last night and has not had any swelling in the legs. She has been eating okay. OBJECTIVE: GENERAL: She is alert and is mildly tachypneic from a short walk. VITAL SIGNS: Pulse is regular at 84 beats per minute, blood pressure of 220/87 and previous blood pressure was around 130. NECK: JVP is normal. AJR is negative. EXTREMITIES: No edema in lower extremities. LUNGS: Clear to auscultation. IMPRESSION: 1. End-stage renal disease. She is euvolemic at this time. 2. Severe hypertension. Blood pressures seem to fluctuate fair amount. Yesterday, lisinopril 10 mg was added. She was already on hydralazine 50 mg t.i.d. and with Furosemide 40 mg daily. RECOMMENDATIONS: A dose of lisinopril should be given b.i.d. so the blood pressure does not fluctuate that much. MILY GARCÍA MD CM:PNTRANS 1156 1308 MILY GARCÍA MD 04/25/17 1309 interface
--- NOTE | ~2017-04-23 | EKG ---
[place], [place] ELECTROCARDIOGRAM REPORT NAME: LEI DRAPER UNIT #: [id number] ROOM: 511 DOCTOR: DEYVI SIMON,ALBA BIRTHDATE: [birth year] DOS: 04/23/2017 TIME: 1826 hours. IMPRESSION: 1. Sinus rhythm. 2. Sinus bradycardia. 3. Supraventricular ectopy. 4. Right bundle-branch block. 5. Possible anterior infarction, age undetermined. 6. Prolonged QT interval. ALBA CARNES MD CM:EKGRPT:ELECTROCARDIOGRAM REPORT [id number] ALBA CARNES MD
--- NOTE | ~2017-04-23 | CON ---
[place], [place] REPORT OF CONSULTATION NAME: LEI DRAPER UNIT #: [id number] ROOM: [facility] DOCTOR: MILY GARCÍA MD BIRTHDATE: [birth year] DOS: 04/24/2017 HISTORY OF PRESENT ILLNESS: This is an 87-year-old -[place] woman with a history of morbid obesity, previous stroke with speech impediment from that I believe coronary artery disease and LAD stented about 10 years ago, she had an anterior wall myocardial infarction at that time. She has essential hypertension, diabetes mellitus, diabetic neuropathy, GERD, hyperlipidemia, chronic anemia and has sinus bradycardia. She had missed her dialysis on the day before yesterday because she wanted to go to latter-day and when she came to the hospital, she was found to be in the severe bradycardia with heart rate in the 30s and I was asked to evaluate. She had taken oral medication including carvedilol 25 mg b.i.d. She did not pass out. She is not very ambulatory patient. HOME MEDICATIONS: Include carvedilol 25 mg b.i.d., atorvastatin 80 daily, aspirin 81 daily, furosemide 40 b.i.d., hydralazine 25 mg daily, levothyroxine 25 mcg daily, lisinopril 5 mg daily, omeprazole 20 mg b.i.d. PHYSICAL EXAMINATION: GENERAL: This is a patient who has abnormal speech. It is rather slow, but one can understand it. It is rather deep which is chronic. She is afebrile. VITAL SIGNS: Pulse is 80 regular, normal. Monitor shows normal sinus rhythm, the heart rate 80s, blood pressure 167/49. Blood pressure has been persistently elevated. The highest blood pressure was 205/87. NECK: JVP is normal. AJR was difficult to assess. No bruits in the neck. HEART: Cardiac auscultation revealed no murmurs. EXTREMITIES: There is no edema in the lower extremities. RESPIRATORY: Breath sounds are modestly diminished with crackles bilaterally. DIAGNOSTIC DATA: Monitor showed sinus bradycardia with a few junctional escape beats, rate in the 30s, now it is normal sinus rhythm with a heart rate in the 80s with intraventricular conduction defect which is chronic. Chest x-ray done yesterday showed no active disease, no pulmonary edema. LABORATORY DATA: Hemoglobin 10.7 g/dL, potassium 4.2 and sodium 141. IMPRESSION: 1. This patient has severe sinus bradycardia with junctional escape beats and was most likely due to high dose of beta-blockade. 2. Essential hypertension, needs better control. 3. End-stage renal disease. Clinically and radiographically, she is euvolemic. RECOMMENDATIONS: 1. Discontinue carvedilol altogether and if heart rate stays fast, then smaller dose of beta-ely will be used. 2. She probably needs another antihypertensive to control blood pressure better. Lisinopril is being increased to 10 mg b.i.d. I thank you for this consult. [place], [place] REPORT OF CONSULTATION NAME: LEI DRAPER [place] UNIT #: [id number] ROOM: [facility] DOCTOR: MILY GARCÍA MD BIRTHDATE: [birth year] MILY GARCÍA MD CM:CONSTR:REPORT OF CONSULTATION 1004 04/24/17 1611 interface
--- NOTE | ~2017-04-23 | PR ---
[place], [place] PROGRESS NOTE NAME: LEI DRAPER UNIT #: [id number] ROOM: 511 DOCTOR: LOBITO HOPE MD BIRTHDATE: [birth year] DOS: SUBJECTIVE: The patient is 87-year-old who was brought in with dizziness and was found to be in sinus rashida and poorly controlled hypertension. This morning, she is getting dialysis. She feels better. Bradycardia has resolved after the Coreg was started. She was also started on low dose amlodipine by Dr. Sy yesterday. OBJECTIVE: VITAL SIGNS: Graphic trend shows blood pressure of 168/80, pulse of 70, respirations 20, temperature 98. LUNGS: Diminished breath sounds. No wheezes, rales or rhonchi heard. HEART: Regular. ABDOMEN: Obese, soft, nontender. EXTREMITIES: Without any edema. ASSESSMENT AND PLAN: 1. Poorly controlled hypertension with bradycardia. Coreg was discontinued. Amlodipine was added. Rest of the home medications have been continued. 2. End-stage renal failure, on dialysis. The patient to go home tomorrow, discharge to be arranged for tomorrow. LOBITO HOPE MD CM:PNTRANS 0829 1224 LOBITO HOPE MD 04/26/17 1224 interface
[~2017-04-23 17:43] MED LIST changes: +Hydralazine Hyd25 MG PO
[2017-04-23 19:08] LABS: BASO % 0.7 % (0.0-1.0); EOS # 0.1 10*3/uL (0.0-0.4); EOS % 1.5 % (1.0-4.0); HEMATOCRIT 34.3 % (37.0-47.0); HEMOGLOBIN 10.8 g/dl (12.0-16.0); LYMPH # 1.6 10*3/uL (1.3-4.4); LYMPH % 27.5 % (27.0-41.0); MEAN CELL VOLUME 95.5 fl (81.0-99.0); MEAN CORPUSCULAR HGB 30.1 pg (27.0-31.0); MEAN CORPUSCULAR HGB CONC 31.5 g/dl (33.0-37.0); MEAN PLATELET VOLUME 11.2 fl (9.6-12.3); MONO # 0.3 10*3/uL (0.1-1.0); MONO % 5.3 % (3.0-9.0); NEUT # 3.8 10*3/uL (2.3-7.9); NEUT % 64.7 % (47.0-73.0); PLATELET COUNT AUTOMATED 190 10*3/uL (130-400); RED BLOOD COUNT 3.59 10*6/uL (4.10-5.10); RED CELL DISTRI WIDTH 16.1 % (0-14.5); WHITE BLOOD COUNT 5.9 10*3/uL (4.8-10.8)
[2017-04-23 19:18] LABS: ACT PARTIAL THROMBO TIME 28.3 SECONDS (20.8-31.5); INTERNATIONAL NORM RATIO 1.1 (2.0-3.5)
[2017-04-23 19:25] LABS: ALBUMIN 3.5 gm/dl (3.1-4.5); CREATININE 8.93 mg/dL (0.55-1.02); POTASSIUM 4.5 mmol/L (3.5-5.1); TOTAL PROTEIN 7.6 gm/dL (6.4-8.2)
[2017-04-23 19:27] LABS: TROPONIN I 0.512 ng/ml (<0.045)
[2017-04-23] MEDS ORDERED: NOVOLOG100 UNIT/1 SQ (20:09)
[2017-04-23] MEDS ORDERED: OMEPRAZOLE MAGN20 MG PO (20:09)
[2017-04-23] MEDS ORDERED: ASPIR LOW81 MG PO (20:10)
[2017-04-23] MEDS ORDERED: CLONIDINE0.2 MG PO (20:11)
[2017-04-23] MEDS ORDERED: LISINOPRIL5 MG PO (20:11)
[2017-04-24 01:47] VITALS: BP 145/54
[2017-04-24 04:00] VITALS: BP 161/68
[2017-04-24 05:33] LABS: CREATININE 9.11 mg/dL (0.55-1.02); POTASSIUM 4.2 mmol/L (3.5-5.1)
[2017-04-24 06:10] LABS: BASO % 0.5 % (0.0-1.0); EOS # 0.1 10*3/uL (0.0-0.4); EOS % 1.4 % (1.0-4.0); HEMATOCRIT 33.7 % (37.0-47.0); HEMOGLOBIN 10.7 g/dl (12.0-16.0); LYMPH # 1.4 10*3/uL (1.3-4.4); LYMPH % 23.1 % (27.0-41.0); MEAN CELL VOLUME 96.8 fl (81.0-99.0); MEAN CORPUSCULAR HGB 30.7 pg (27.0-31.0); MEAN CORPUSCULAR HGB CONC 31.8 g/dl (33.0-37.0); MEAN PLATELET VOLUME 11.4 fl (9.6-12.3); MONO # 0.3 10*3/uL (0.1-1.0); MONO % 5.5 % (3.0-9.0); NEUT # 4.3 10*3/uL (2.3-7.9); NEUT % 69.3 % (47.0-73.0); PLATELET COUNT AUTOMATED 190 10*3/uL (130-400); RED BLOOD COUNT 3.48 10*6/uL (4.10-5.10); RED CELL DISTRI WIDTH 16.2 % (0-14.5); WHITE BLOOD COUNT 6.2 10*3/uL (4.8-10.8)
[2017-04-24 08:00] VITALS: BP 167/49
[2017-04-24] MEDS ORDERED: SENNA-S TABLET1 EACH PO (10:28)
[2017-04-24 12:00] VITALS: BP 215/92
[2017-04-24 16:00] VITALS: BP 130/65
[2017-04-24 20:00] VITALS: BP 138/52
[2017-04-25] VITALS (10 sets, daily range): BP systolic 153–220; BP diastolic 56–106
[2017-04-25 04:50] LABS: CREATININE 4.97 mg/dL (0.55-1.02); POTASSIUM 4.4 mmol/L (3.5-5.1)
[2017-04-26] VITALS (7 sets, daily range): BP systolic 140–188; BP diastolic 42–84
[2017-04-26 07:21] LABS: CREATININE 6.51 mg/dL (0.55-1.02); POTASSIUM 4.3 mmol/L (3.5-5.1)
[2017-04-26] MEDS ORDERED: AMLODIPINE BESYL5 MG PO (08:25)
[2017-04-27 00:01] VITALS: BP 189/77
[2017-04-27 00:32] VITALS: BP 220/100
[2017-04-27 03:02] VITALS: BP 168/68
[2017-04-27 08:00] VITALS: BP 188/85
[2017-04-27 12:31] VITALS: BP 148/62
== END 2017-04-27 12:40 | disposition home or self-care (01) | DRG 291 ==
LOC: ED 17:43 → ICCU 20:45 → 5E 20:45 → EDHOLD 20:45 → 4E 20:53 → ICCU 22:30 → 5E 04-25 17:29
PROVIDERS: Emergency Medicine; Internal Medicine
PROC: 5A1D70Z Performance of Urinary Filtration, Intermittent, Less than 6 Hours Per Day (ICD-10-PCS; principal; 2017-04-23)
DX: I13.2 Hypertensive heart and chronic kidney disease with heart failure and with stage 5 chronic kidney disease, or end stage renal disease (principal); N18.6 End stage renal disease; I95.9 Hypotension, unspecified; E11.22 Type 2 diabetes mellitus with diabetic chronic kidney disease; R00.1 Bradycardia, unspecified; E83.39 Other disorders of phosphorus metabolism; D64.9 Anemia, unspecified; I50.33 Acute on chronic diastolic (congestive) heart failure; E78.2 Mixed hyperlipidemia; I16.0 Hypertensive urgency; T44.7X5A Adverse effect of beta-adrenoreceptor antagonists, initial encounter; E88.9 Metabolic disorder, unspecified; K57.30 Diverticulosis of large intestine without perforation or abscess without bleeding; K21.0 Gastro-esophageal reflux disease with esophagitis; E03.9 Hypothyroidism, unspecified; I25.10 Atherosclerotic heart disease of native coronary artery without angina pectoris; Z91.15 Patient's noncompliance with renal dialysis; Y92.89 Other specified places as the place of occurrence of the external cause; Z99.2 Dependence on renal dialysis; I25.2 Old myocardial infarction; Z95.5 Presence of coronary angioplasty implant and graft; Z79.82 Long term (current) use of aspirin; Z79.4 Long term (current) use of insulin; Z79.899 Other long term (current) drug therapy; Z90.710 Acquired absence of both cervix and uterus; Z90.49 Acquired absence of other specified parts of digestive tract; Z88.5 Allergy status to narcotic agent; Z84.1 Family history of disorders of kidney and ureter; Z82.3 Family history of stroke; Z82.49 Family history of ischemic heart disease and other diseases of the circulatory system

== ENCOUNTER 2017-05-20 05:22 | Inpatient (IN) | payer MEDICARE, OTHER ==
[2017-05-20] VITALS (16 sets, daily range): BP systolic 97–240; BP diastolic 51–162
[~2017-05-20] VITALS: Ht 157 cm; Wt 70.9 kg
--- NOTE | ~2017-05-20 | PR ---
[place], [place] PROGRESS NOTE NAME: LEI DRAPER UNIT #: [id number] ROOM: [facility] DOCTOR: BERE BUCHANAN DO BIRTHDATE: [birth year] DOS: 05/24/2017 SUBJECTIVE: The patient is seen and examined at bedside. The patient was sitting upright in bed in no acute distress. The patient was receiving dialysis this morning. The patient reports that she continues to have a mild cough, but her shortness of breath has improved. No new complaints at this time. The patient denies pain, fever, chills, nausea, vomiting and productive cough. OBJECTIVE: VITAL SIGNS: Temperature 96.9, pulse is 61, respirations 17, blood pressure 114/47, pulse ox is 100% on 2 liters nasal cannula. GENERAL APPEARANCE: The patient is awake, alert, no acute distress. HEENT: Eyes are clear. Nares are patent. Nasal cannula in place. Mucous membranes are moist. NECK: Supple, nontender. CARDIOVASCULAR: Regular rate and rhythm, no murmurs, gallops or rubs. PULMONARY: Mild expiratory wheezes and rhonchi, no crackles appreciated. Diminished breath sounds in all lung josue. ABDOMEN: Soft, nontender with positive bowel sounds. EXTREMITIES: 1+ edema in upper and lower bilateral extremities. NEUROLOGIC: Negative for focal deficits LABORATORY DATA: Chemistries from this morning shows sodium 136, potassium 4.1, chloride 99, carbon dioxide 26, BUN 39, creatinine 6.36, glucose 104, calcium 8.2, phos 4.6, magnesium 2, albumin 2.7. Urine cultures are positive for E. coli, sensitive to Zosyn. MRSA screen is negative. Sputum cultures remain negative. Blood cultures remain negative. Flu swab remains negative. Chest x-ray from yesterday morning shows minimal linear atelectasis of the left mid lung field. IMPRESSION: 1. Resolving acute hypoxic respiratory failure secondary to acute congestive heart failure exacerbation with bilateral small pleural fluid. End-stage renal failure, on dialysis. 2. Urinary tract infection. PLAN OF CARE: Adjustment of the antibiotics was made, Levaquin and vancomycin were discontinued, continue with Zosyn, continue with oxygen supplementation, bronchodilators, steroids, BiPAP as needed to maintain oxygenation saturation greater than 90%. The patient continues to improve clinically, medically stable, from pulmonary standpoint to be transferred to the medical surgical floor out of the ICU once dialysis was done. Nephro and the primary team, Dr. Welsh, are following. We will continue to follow from a pulmonary standpoint. BERE BUCHANAN DO [place], [place] PROGRESS NOTE NAME: LEI DRAPER UNIT #: [id number] ROOM: [facility] DOCTOR: BERE BUCHANAN DO BIRTHDATE: [birth year] LUCIEN HARDING MD CM:PNTRANS 0819 1143 BERE BUCHANAN DO 05/24/17 1142 interface
--- NOTE | ~2017-05-20 | PR ---
[place], [place] PROGRESS NOTE NAME: LEI DRAPER UNIT #: [id number] ROOM: [facility] DOCTOR: MANDA BAI MD BIRTHDATE: [birth year] DOS: 05/20/2017 SUBJECTIVE: The patient has been admitted to the hospital with acute COPD with respiratory distress and is on BiPAP. She is also an improving from her respiratory failure and she is also having congestive heart failure. At present the patient is conscious, alert, oriented and she does not seem to be in any distress. She has past history of COPD, pneumonia, bradycardia, neutrophilia, lymphopenia, eosinophilia, normocytic anemia, hyperglycemia, elevated troponin level, obesity, coronary heart disease, hypothyroidism, hyperlipidemia, end-stage renal failure, on hemodialysis, type 2 diabetes mellitus, essential hypertension. The patient is gradually getting better and not in any distress. Her renal function today shows glucose 162, BUN 22, creatinine 4.81. GFR is 9. Her blood culture is negative. The patient's blood pressure is 120/64, pulse 73, respirations 20, temperature 98.8. The patient can be transported to the med/surg unit from the ICU. MANDA BAI MD CM:TYLER [id number] 1512 MANDA BAI MD 05/25/17 1511 interface
--- NOTE | ~2017-05-20 | PR ---
[place], [place] PROGRESS NOTE NAME: LEI DRAPER UNIT #: [id number] ROOM: 421 DOCTOR: CIARA LOWE MD BIRTHDATE: [birth year] DOS: 05/25/2017 SUBJECTIVE: The patient had dialysis yesterday, said that it exhausted her and she got very restless towards the end. She is tolerating breathing right now. In general, she remains in the ICU, somewhat short of breath at times, less cough it seems. OBJECTIVE: VITAL SIGNS: Afebrile overnight. Heart rates are in the 70s, respiratory rate 18-20, blood pressure 120/64, pulse ox 96%. GENERAL: Awake, alert and oriented, pleasant mood and affect. Speech clear, slightly hoarse, but cogent. LUNGS: Clear, slight rhonchi. ABDOMEN: Soft, nontender, nondistended. No rebound, no guarding. SKIN: Without diffuse rash or breakdowns. LABORATORIES AND DIAGNOSTICS: Sodium 133, potassium 3.9, chloride 97, bicarbonate 28, BUN 22, creatinine 4.8, glucose 164, calcium 8.7, phosphorus 4.6, magnesium 2, albumin 3.1. She had a barium swallow yesterday with speech aspiration with thin barium was seen. ASSESSMENT AND PLAN: 1. End-stage renal disease. Hemodialysis, continue Saturday, Saturday and Saturday. We discussed slightly the possibility of withdrawal from dialysis if she were to have significant issues with pain or discomfort, or is having trouble with chronic infections and chronic debility. At this point, she came out of her acute respiratory failure fairly well and is off the ventilator. We will try further ultrafiltration as needed, but I think yesterday, she probably hit her dry weight. 2. Hypertension. Blood pressure control acceptable. Continue home medications. 3. Anemia. Hemoglobin and followup and ESAs with dialysis, acute respiratory failure improving. [place], [place] PROGRESS NOTE NAME: LEI DRAPER UNIT #: [id number] ROOM: 421 DOCTOR: CIARA LOWE MD BIRTHDATE: [birth year] CIARA LOWE MD CM:TYLER 1435 22 CIARA LOWE MD 05/25/172122 interface
--- NOTE | ~2017-05-20 | CON ---
[place], [place] REPORT OF CONSULTATION NAME: LEI DRAPER UNIT #: [id number] ROOM: [facility] DOCTOR: LUCIEN GERONIMO MD BIRTHDATE: [birth year] DOS: 05/21/2017 PULMONARY AND CRITICAL CARE EVALUATION AND MANAGEMENT REASON FOR CONSULTATION: Acute respiratory failure with acute pneumonia and sepsis. HISTORY OF PRESENT ILLNESS: This is an 87-year-old -Russian female patient who has been admitted under the care of Dr. Welsh. The patient presented to the Emergency Room as the patient developed increased symptoms of shortness of breath associated with abdominal pain. Shortness of breath has been described for this patient, which was noted intermittently. She was noted with abdominal pain. She has been noted with acute hypoxic respiratory failure and was started on the BiPAP initially, but the respiratory failure worsened progressively, and quickly required intubation and mechanical ventilation in the Emergency Room. The patient has been intubated and currently noted sedated on the mechanical ventilation. She has not been noted at this time in distress and she remains on mechanical ventilation. Oxygen requirement has been gradually decreased with changes in mechanical ventilation done based on improvement in the oxygenation and ventilatory status. The patient has been receiving assist control, volume control mechanical ventilation. All the critical orders for the patient, which has been noted in place from yesterday as well. The patient has been currently treated in Intensive Care Unit. At the time of assessment, the patient has been noted comfortably sedated with the use of Diprivan. The patient's mental status has been noted to be appropriate. With the reduction in sedation, the patient able to follow simple commands with clenching the fingers of the hands and wiggling her toes. REVIEW OF SYSTEMS: Review of systems and other history could not be completed as the history contained in the documents essentially with the medical record documentation by the other physicians. PAST MEDICAL HISTORY: 1. She has reported with history of coronary artery disease. 2. Diverticulosis. 3. End-stage renal failure, on hemodialysis. 4. Essential hypertension. 5. History of gastrointestinal bleeding. 6. Hyperlipidemia. 7. Hyperparathyroidism related to the renal failure. 8. Hypothyroidism. 9. History of transient ischemic attack. 10. Type 2 diabetes mellitus. 11. Lower back pain. PAST SURGICAL HISTORY: 1. Cholecystectomy. 2. Cardiac catheterization and coronary artery stents insertion. 3. Hysterectomy. 4. Tonsillectomy. [place], [place] REPORT OF CONSULTATION NAME: LEI DRAPER UNIT #: [id number] ROOM: [facility] DOCTOR: LUCIEN GERONIMO MD BIRTHDATE: [birth year] 5. Dialysis catheter insertion for the patient with complication and then removal in the past. SOCIAL HISTORY: The patient was described as nonsmoker lifetime. There was no history of alcohol use or illicit drug use described. FAMILY HISTORY: Reported in that the father at the age of 79 years due to complication of kidney disease. Mother at age of 70 years due to complication of CVA. HOME MEDICATIONS: Listed on admission as use of Norvasc, aspirin, Lipitor, Coreg, Plavix, Lasix, hydralazine, Levemir insulin, levothyroxine, lisinopril, and omeprazole. DRUG ALLERGIES: REPORTED CODEINE ALLERGIES. PHYSICAL EXAMINATION: GENERAL: An 87-year-old elderly -Russian female, currently lying comfortably on the bed, sedated, intubated. Orogastric tube is in place. The patient was orally intubated. VITAL SIGNS: Height for the patient recorded at admission as 5 feet 2 inches, weight of 71 kilograms, BMI 29.2. The vital signs for the patient, which was recorded, shows the blood pressure noted as 104/42-160/75. Temperature of the patient noted normal on admission, respiratory rate of 13-25, heart rate 48-112 and mild bradycardia later on noted. The pulse oxygen saturation of the patient noted on 30% oxygen as 99%, previously noted 100%, 97% saturation on the mechanical ventilator. HEENT: Atraumatic. Eyes nonicterus. The patient is currently intubated. Orogastric tube is in place. NECK: Supple. CARDIOVASCULAR: S1, S2 audible. LUNGS: Shows moderate general reduction in breath sounds, scattered crackles of the lungs. ABDOMEN: Noted soft, mild obesity. Bowel sounds present without tenderness elicited. SKIN: Visible skin, no lesions or rashes. MUSCULOSKELETAL: No acute deformities. CENTRAL NERVOUS SYSTEM: No gross focal deficit at this time was seen. LABORATORY DATA: Lactic acid yesterday 1.9 on admission. The CBC of the patient of 05/20/2017, was noted on admission with normal WBC count, hemoglobin 11.9, hematocrit 36.4, platelet count was normal. Arterial blood gas for the patient on 05/20/2017 on 3-1/2 liters nasal cannula, pH of 7.3, pCO2 34, pO2 74 on arrival in the Emergency Room. CMP of the patient yesterday in the Emergency Room on arrival, BUN 50, creatinine 6.62, glucose 252. The troponin mildly elevated at 0.569. Arterial blood gases of the patient that was done later on, pH of 7.20, pCO2 of 51, pO2 of 60, after intubation and mechanical ventilation another arterial blood gases of the patient on 05/20/2017 as the patient admitted to the Intensive Care Unit few hours later, pH of 7.39, pCO2 of 32, pO2 72 on 100% oxygen. CBC this morning, WBC count 11.7, hematocrit 34.8, platelet [place], [place] REPORT OF CONSULTATION NAME: LEI DRAPER UNIT #: [id number] ROOM: [facility] DOCTOR: NEELA GERONIMO MDM BIRTHDATE: [birth year] count were normal. WBC count normal. CMP of the patient today, BUN 42, creatinine 5.74. Arterial blood gas this morning, 30% oxygen, pH of 7.36, pCO2 of 37, pO2 95.6. Blood culture so far has not been reported. The influenza A and B, nasal washing antigen, both noted as negative. Endotracheal aspirate from 05/20/2017 noted with many white blood cells. Gram-negative bacilli. IMAGING STUDIES: The first chest x-ray of the patient that was done in the Emergency Room shows evidence of scoliosis of the thoracic spine lower portion. The dialysis catheter noted in place from the left subclavian approach for this patient, tip in the appropriate position. Small bilateral pleural fluid with increased pulmonary venous congestion marking were noted. Chest x-ray repeated for this patient at this time as the patient was intubated, with the diffuse pulmonary edema at that time was noted. The chest x-ray of the patient that was done another one later on shows worsening of pulmonary edema. NG tube was noted in place with the NG tube in the abdomen. The chest x-ray done this morning shows reduction of the previously noted pulmonary edema. Mild pulmonary venous congestion noted. Small area of atelectasis, retrocardiac area in the left lower lobe was considered. Endotracheal tube tip was noted in appropriate position. Dialysis catheter remains in position and NG tube in the stomach. IMPRESSION: 1. The patient who has been currently admitted to the hospital, developed rapidly acute pulmonary edema and congestive heart failure with history of end-stage renal failure. Rule out acute myocardial infarction as well. 2. The patient with a known end-stage renal failure, on regular hemodialysis, was to get the hemodialysis yesterday. 3. Anemia of chronic disease as well. Possibility of pneumonia cannot be excluded completed, but appeared to be less likely, area of atelectasis noted in the left lower lobe most likely secondary to mucus impaction. Elderly status of the patient with possibility of protein-calorie malnutrition would be considered as well. 4. Normal blood pressure was noted without any evidence of hypotension. 5. The patient with bradycardia, most likely related to the IV Diprivan. PLAN OF MANAGEMENT: At this time, the patient would be continuing current broad spectrum intravenous antibiotic; however, with consideration of discontinuing antibiotic in the next 24 hours if all the culture results preliminarily noted negative. Repeat another chest x-ray morning. Discontinue the propofol, only use the intravenous Versed for the sedation purposes. Bronchodilators every 4 hours to help mobilize secretions. Hemodialysis per Nephrology services assessment and their recommendations. Antibiotic has been already adjusted according to the end-stage renal failure. Ventilator bundle management was noted in progress to be continued. Nutrition support was also started. Prealbumin level will be obtained in the morning as well to assess the overall nutritional status. Continue monitoring other lab for the patient on a daily basis. Supportive care, plan of management and care. Aspiration precautions. Total time in pulmonary and critical evaluation and management noted as 40 minutes. [place], [place] REPORT OF CONSULTATION NAME: LEI DRAPER Justina UNIT #: [id number] ROOM: [facility] DOCTOR: MEAGHAN GORDON MD,LUCIEN BIRTHDATE: [birth year] LUCIEN HARDING MD CM:CONSTR:REPORT OF CONSULTATION 45 05/22/17 0442 interface
--- NOTE | ~2017-05-20 | PR ---
[place], [place] PROGRESS NOTE NAME: LEI DRAPER UNIT #: [id number] ROOM: [facility]- DOCTOR: BERE BUCHANAN DO BIRTHDATE: [birth year] DOS: 05/23/2017 SUBJECTIVE: The patient is seen and examined at bedside. The patient is sitting upright in bed at 30 degrees line and in no acute distress, on nasal cannula. The patient tolerated extubation well with a transfer to BiPAP yesterday and has successfully been weaned down to nasal cannula oxygenation today. The patient has no new complaints. The patient has mild cough that is productive. Otherwise, no complaints of pain, shortness of breath, wheezing, chest pain or worsening edema. OBJECTIVE: VITAL SIGNS: Temperature 96.8, pulse is 58, respirations 18, blood pressure 112/50, pulse ox 98% on 2 liters nasal cannula. GENERAL APPEARANCE: The patient is awake and alert, in no acute distress. HEENT: Eyes are clear. Nares are patent. Nasal cannula in place. Membranes are moist. NECK: Supple, nontender. LUNGS: Sounds are diminished with mild rales heard in bilateral lung bases. No wheezes or rhonchi. ABDOMEN: Soft and nontender. CARDIOVASCULAR: Regular rate and rhythm. No murmurs, gallops or rubs. EXTREMITIES: 2+ edema in upper or lower extremities bilaterally. LABORATORY DATA: CBC and BMP were reviewed, no gross change from prior labs. ABG yesterday showed good oxygenation, no acidosis or alkalosis. Chest x-ray this morning shows minimal linear atelectasis in the left mid lung field. Urine was positive for E. coli. Sputum and blood cultures remain negative. IMPRESSION: 1. Mild bilateral pleural effusions. 2. Acute respiratory failure with acute pulmonary edema. 3. Congestive heart failure. 4. Urinary tract infection. 5. End-stage renal failure, on dialysis. TREATMENT PLAN: The patient was examined at bedside with an ultrasound probe, mild effusions were noted; however, the amount was not significant enough to warrant a thoracentesis. We will continue with the diuresis via hemodialysis and continue with current treatment of oxygen supplementation, continue with bronchodilators. We will continue to follow the patient. The patient has clinically improved from yesterday. We will continue to follow this. BERE BUCHANAN DO [place], [place] PROGRESS NOTE NAME: LEI DRAPER Justina UNIT #: [id number] ROOM: [facility] DOCTOR: BERE BUCHANAN DO BIRTHDATE: [birth year] LUCIEN HARDING MD CM:PNTRANS [id number] BERE BUCHANAN DO 05/23/17 1420 interface
--- NOTE | ~2017-05-20 | PR ---
[place], [place] PROGRESS NOTE NAME: LEI DRAPER UNIT #: [id number] ROOM: 421 DOCTOR: MEAGHAN GORDON MD,LUCIEN BIRTHDATE: [birth year] DOS: 05/27/2017 SUBJECTIVE: She has been comfortably resting in the bed at this time without any acute distress. Denies symptoms of shortness of breath, coughing, sputum expectoration. The oxygen supplementation, currently used with 2 liter nasal cannula. OBJECTIVE: VITAL SIGNS: For the patient which has been recorded shows normal temperature, respiratory rate 18, heart rate 74, blood pressure 130/56, pulse oxygen saturation on room air 99% saturation. HEENT: No acute change. NECK: Supple. CARDIOVASCULAR: S1, S2 audible. LUNGS: Without wheeze or crackles. ABDOMEN: Soft, nontender. EXTREMITIES: Without any acute edema. IMPRESSION: Progressive resolution of the acute respiratory failure. The patient noted with hypoxia. Status post liberation of mechanical ventilation several days ago. Reduced oxygen requirement acute respiratory failure, hemodialysis. PLAN OF TREATMENT: Continue current therapy, plan of management, pulmonary standpoint, no change in treatment at this time will be necessary. All other treatment therapy, plan of management and care. Usual treatment, other therapies. LUCIEN HARDING MD CM:PNTRANS [phone] LUCIEN GORDON MD 05/27/171952 interface
--- NOTE | ~2017-05-20 | PR ---
[place], [place] PROGRESS NOTE NAME: LEI DRAPER UNIT #: [id number] ROOM: 421 DOCTOR: CIARA LOWE MD BIRTHDATE: [birth year] DOS: 05/26/2017 SUBJECTIVE: The patient was seen and evaluated in followup of end-stage renal disease. She is doing well overall, less cough, but still having some. OBJECTIVE: VITAL SIGNS: 153/58-115/63, afebrile, heart rates in the 70s, respiratory rate 18, saturation 94% on room air. GENERAL: She is awake, alert and oriented, no acute distress, pleasant mood and affect elderly woman, some sarcopenia is noted, no significant cyanosis or clubbing or edema. LUNGS: Decreased with some scattered rhonchi. CARDIOVASCULAR: Rate is controlled. No audible rub. SKIN: Without diffuse rash or breakdowns. Prior graft clotted, tunneled dialysis catheter intact. LABORATORIES AND DIAGNOSTICS: Sodium 132, potassium 4.1, chloride 96, bicarbonate 26, BUN 35, creatinine 6.96. Glucose 137, calcium 8.6, phosphorus 5.9, magnesium 2.2, albumin 2.8. ASSESSMENT AND PLAN: 1. End-stage renal disease, hemodialysis next tomorrow. We again discussed possibility of withdrawal dialysis if she would have significant issues, she would be DNR/DNI again in the future. Though at this point, as she came over acute respiratory failure and was on the ventilator, now weaned, she seems upbeat about the prospects, though at her age, and her comorbidities, remains very, very significant. 2. Volume and hypertension. Blood pressure control is acceptable. Continue home medications and ultrafiltration as tolerated. 3. Anemia. Hemoglobin followup and JAN with dialysis. 4. Respiratory failure. This is improving. Continue follow up with Pulmonary. CIARA LOWE MD CM:PNMELISSA [phone] CIARA LOWE MD 05/26/172149 interface
--- NOTE | ~2017-05-20 | PROC NOTE ---
[place], [place] PROCEDURE NOTE NAME: LEI DRAPER UNIT #: [id number] ROOM: [facility] DOCTOR: MARY OSEI BIRTHDATE: [birth year] DOS: 05/24/2017 PRIMARY PHYSICIAN: Dr. Welsh. RADIOLOGIST: Dr. Thorpe. [facility]. HISTORY OF PRESENT ILLNESS: The patient presented to [facility] on 05/20/2017 with pneumonia, sepsis and respiratory failure. The patient was intubated that day and extubated on 05/22/2017. The patient's additional medical history includes CAD, ESRD and history of TIA. GENERAL COMMENTS: The patient remained awake, alert and cooperative throughout exam, although appeared fatigued and required cues to complete instructions. She denied concerns regarding swallowing and reported tolerating a regular diet with thin liquids prior to admission. Oral mechanism/motor speech exam: The patient is mildly slow to complete oral motor movements otherwise unremarkable. The patient with upper and lower dentures in place. Vocal quality was moderate to severely hoarse/breathy. MBSS METHODS: This exam was viewed in the lateral plane. The patient self had the following: Barium impregnated consistencies, single sips of thin liquids via cup x 3, single sips of thin liquids via straw (with head turn) x 3, sips of nectar thickened liquids x 2, teaspoons of pureed x 1 and bites of course solid x 1. ORAL PHASE: Adequate bolus acceptance, anterior loss noted only when attempted to complete head turn maneuver. Bolus manipulation and mastication were timely and adequate. No appreciable oral residue. PHARYNGEAL PHASE: Initiation of the swallow response appeared timely. HLE mildly reduced with subsequent incomplete epiglottic retroflexion. This resulted in silent aspiration of thin liquids during the swallow. Right head turn was trialled. This was not effective in eliminating aspiration and was difficult for the patient to complete. No aspiration or penetration was observed with puree and solids, mild residue maintained in the piriform sinuses noted across consistencies. UES unremarkable. IMPRESSION: The patient presents with moderate pharyngeal dysphagia classified by silent aspiration of thin liquids. Compensatory strategies were not effective in eliminating aspiration. No aspiration/penetration observed with nectar thickened liquids, puree and solids. The patient also presents with moderate to severely hoarse/breathy vocal quality likely due to intubation. RECOMMENDATIONS: 1. Downgrade diet to regular foods with nectar thickened liquids. [place], [place] PROCEDURE NOTE NAME: LEI DRAPER UNIT #: [id number] ROOM: [facility]- DOCTOR: MARY OSEI BIRTHDATE: [birth year] 2. Standard aspiration precautions, fully upright, awake and alert for all p.o. small bites/sips oral care at least b.i.d. 3. Referral to ENT if vocal quality does not improve. Findings and recommendations were reviewed with patient and RN who expressed understanding. 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 We will continue to evaluate for possible diet advancement. However, repeat MBS as will be indicated due to silent aspiration. Thank you for consulting. Please contact the speech language pathology department at [phone] with any questions/concerns. Mary Escobar CM:PROCNOTE:PROCEDURE NOTE [id number] MARY OSEI
--- NOTE | ~2017-05-20 | PR ---
[place], [place] PROGRESS NOTE NAME: LEI DRAPER UNIT #: [id number] ROOM: 421 DOCTOR: MEAGHAN GORDON MD,LUCIEN BIRTHDATE: [birth year] DOS: 05/25/2017 SUBJECTIVE: She has been noted comfortable at this time, received the hemodialysis yesterday. She was noted awake and alert, on oxygen supplementation just with the nasal cannula. She does follow vocal commands. OBJECTIVE: VITAL SIGNS: For the patient which was recorded. Temperature noted normal, respiratory rate 18, heart rate 70, blood pressure 125/58. Pulse oxygen saturation on 2 liters nasal cannula on 100% saturation. HEENT: Showed no acute change. NECK: Supple. CARDIOVASCULAR: S1, S2 audible. LUNGS: The patient was noted without any wheezing or crackles at this time. ABDOMEN: Soft, nontender. EXTREMITIES: Without any edema. LABORATORY DATA: BUN today was noted 22, creatinine 4.81. Blood culture from 05/20/2017 shows no bacterial growth. IMPRESSION: 1. Progressive and gradual resolution was continued for the acute hypoxic respiratory failure at this time secondary to congestive heart failure or debility and fluid overload. 2. End-stage renal failure, regular hemodialysis. PLAN OF TREATMENT: The patient could be transferred from the intensive care unit to telemetry floor. Discharge planning could be started for possible placement in snf facility. The patient did not qualify for admission to long-term acute care facility. LUCIEN HARDING MD CM:PNTRANS [id number] LUCIEN GORDON MD 05/26/17 0048 interface
--- NOTE | ~2017-05-20 | PR ---
[place], [place] PROGRESS NOTE NAME: LEI DRAPER UNIT #: [id number] ROOM: [facility] DOCTOR: MEAGHAN GORDON MD,LUCIEN BIRTHDATE: [birth year] DOS: 05/24/2017 SUBJECTIVE: The patient was independently seen and examined. History was confirmed, physical examination was performed. All the labs were reviewed. Assessment and management was personally completed for today's visit. Note done by the medical cash poster was approved as well. She has been noted comfortable at this time, using oxygen supplementation and the BiPAP at times. This morning, the patient was using oxygen supplementation nasal cannula, was receiving hemodialysis. She has not been noted with obvious shortness of breath. OBJECTIVE: VITAL SIGNS: For the patient shows a normal temperature, respiratory rate of 18-24, heart rate of 64, blood pressure 156/80. The pulse oxygen saturation for the patient on 2 liters nasal cannula 100% saturation recorded this morning. HEENT: No acute change. NECK: Supple. Head was atraumatic. CARDIOVASCULAR: S1, S2 audible. LUNGS: The patient was noted without any crackles, rhonchi, or wheezing at the present time in the lungs. ABDOMEN: Soft, nontender. EXTREMITIES: The patient was noted without any acute edema. LABORATORY DATA: CBC of the patient on 05/24/2017 was noted with mild anemia, otherwise normal WBC count. The BUN was noted elevated at 104 and creatinine 6.36. IMPRESSION: 1. The patient with resolving acute respiratory failure, status post liberation of mechanical ventilation. 2. The patient with congestive heart failure. The patient was also noted with overall debility. PLAN OF TREATMENT: The patient could be considered for discharge may be in the next 24 hours to either longterm facility or long-term acute facility upon authorization and acceptance. Continue the BiPAP for the patient at nighttime and p.r.n. during the day. Continue oxygen supplementation. Continue hemodialysis for maximum free water removal. Usual care, other supportive therapy, plan of management of the patient as well. Additional treatment changes for the patient to be made based on progression of the illness. Usual care. Supportive care, plan of management and other therapies. [place], [place] PROGRESS NOTE NAME: LEI DRAPER UNIT #: [id number] ROOM: [facility] DOCTOR: LUCIEN GERONIMO MD BIRTHDATE: [birth year] LUCIEN HARDING MD CM:PNMELISSA [id number] LUCIEN GORDON MD 05/25/17 0110 interface
--- NOTE | ~2017-05-20 | PR ---
[place], [place] PROGRESS NOTE NAME: LEI DRAPER UNIT #: [id number] ROOM: [facility] DOCTOR: LUCIEN GERONIMO MD BIRTHDATE: [birth year] DOS: 05/23/2017 The patient is independently seen and examined in [id number] encounter. History was confirmed. Physical examination was performed. The note done by the medical administrative was approved as well. The assessment of the patient for today's note was personally made and the changes in medical management for this patient was done personally as well. SUBJECTIVE: The patient has been successfully liberated from mechanical ventilator yesterday afternoon as the patient completed the hemodialysis. The sedation was discontinued. The patient was kept on CPAP 5, pressure support of 10 for 2 hours. Arterial blood gases was done and medical status was noted stable. Arterial blood gases on the BiPAP with CPAP of 5, pressure support of 10, 30% oxygen was noted with pH of 7.43, pCO2 36, pO2 98. The patient initially has done better. The patient was decannulated requiring the BiPAP that resulted in improvement of respiratory status. This morning, the patient noted with oxygen supplementation nasal cannula, with use of BiPAP last night. She has not been reporting any symptoms of chest pain or hemoptysis and is able to speak softly. She does not show any acute distress at this time. OBJECTIVE: VITAL SIGNS: For the patient, normal temperature, respiratory rate 21-20, heart rate 69-77, blood pressure 126/41-134/66. Pulse oxygen saturation with the patient on 35% oxygen, 99% saturation recorded. HEENT: Edentulous status. Currently, the patient is extubated. Orogastric tube is removed. NECK: Supple. CARDIOVASCULAR: S1, S2 audible. LUNGS: Decreased breath sounds in the lower portion of the lungs bilaterally with occasional crackles. No wheezing. ABDOMEN: Mild to moderate obesity. Bowel sounds present. EXTREMITIES: Chronic changes. SKIN: Visible skin, no lesions or rashes. MUSCULOSKELETAL: No gross deformities. CENTRAL NERVOUS SYSTEM: Generalized weakness and fatigue without any gross focal deficit. LABORATORY DATA: Reviewed of the patient from 05/20/2017, sputum was noted as normal judd. CMP this morning, BUN 29, creatinine 4.97. The remaining electrolytes were grossly normal. Albumin 2.8, AST 35. The CBC of the patient of 05/23/2017, WBC count normal, hemoglobin 10.2, hematocrit 31.9, platelet count 167,000. Urine culture finalized with E. coli for the patient noted with quite resistant infection, with sensitivity noted to Invanz, meropenem, Macrodantin, tetracycline, and Bactrim sulfate. IMAGING STUDIES: Chest x-ray of the patient that was completed this morning was reviewed as well, shows removal of endotracheal and NG tubes, small basilar areas of atelectasis, reduction of the pulmonary edema, congestive heart failure, and infiltration. The ultrasound of the chest was also personally done for the patient at bedside for assessment of pleural fluid, noted only small [place], [place] PROGRESS NOTE NAME: LEI DRAPER UNIT #: [id number] ROOM: [facility] DOCTOR: MEAGHAN GORDON [facility] BIRTHDATE: [birth year] pleural fluid at this time with areas of atelectasis suspected. IMPRESSION: 1. The patient was noted with resolving acute hypoxic respiratory failure secondary to acute congestive heart failure with bilateral small pleural fluid, improvement in pleural fluid was noted. 2. End-stage renal failure, on hemodialysis. No evidence of clinical pneumonia. 3. Urinary tract infection, noted with resistant E. coli for this patient as well. PLAN OF MANAGEMENT: Adjustment of the antibiotic according to the culture results will be done. Since there has not been any evidence of confirmation for the pneumonia, the patient will be discontinuing all the other antibiotics. Urinary tract infection will be treated based on the current sensitivity results of the urine. The BiPAP of the patient will be continued to stabilize the respiratory status. Keep the patient in Intensive Care Unit for the next 24 hours prior to transfer possibly to the medical floor. Aspiration precaution to be closely monitored. Nutrition support continue to optimize. Supportive therapy, plan of management and other care. Usual treatment. Additional treatment changes to be made based on the progression of the illness. The patient will be continued on IV Zosyn and vancomycin. Levaquin will be discontinued. Physical therapy needs to be done for this patient as well. Oxygen supplementation at this time with nonuse of the BiPAP to maintain oxygen saturation 92% or greater. LUCIEN HARDING MD CM:PNTRANS 1612 2 LUCIEN GORDON MD 05/24/17 030 interface
--- NOTE | ~2017-05-20 | PR ---
[place], [place] PROGRESS NOTE NAME: LEI DRAPER UNIT #: [id number] ROOM: 421 DOCTOR: MEAGHAN GORDON MD,LUCIEN BIRTHDATE: [birth year] DOS: 05/28/2017 SUBJECTIVE: She was comfortably resting on the bed, using oxygen supplementation has not used the BiPAP for the last couple of days. She denies any symptoms of chest pain or hemoptysis or any abdominal pain. OBJECTIVE: VITAL SIGNS: For the patient, which has been recorded shows a normal temperature, respiratory rate 18, heart rate 55, blood pressure 132/57. The pulse oxygen saturation was noted as 99% saturation on room air. HEENT: Showed no acute change. NECK: Supple. CARDIOVASCULAR: S1, S2 audible. LUNGS: Basilar crackles, no wheezing. ABDOMEN: Soft, nontender. IMPRESSION: 1. Progressive resolution of the acute respiratory failure with bilateral small pleural fluid and fluid overload and congestive heart failure, combination are resolving gradually. Oxygen requirement noted, adjust nasal cannula. 2. End-stage renal failure, on hemodialysis. PLAN OF MANAGEMENT: Continue the patient on current therapy. Plan of management as previously without changes. Continue usual care and plan of management, other therapies and supportive care. Usual care. LUCIEN HARDING MD CM:PNTRANS [id number] LUCIEN GORDON MD 05/29/17 0026 interface
--- NOTE | ~2017-05-20 | PR ---
[place], [place] PROGRESS NOTE NAME: LEI DRAPER UNIT #: [id number] ROOM: 421 DOCTOR: MEAGHAN GORDON MD,LUCIEN BIRTHDATE: [birth year] DOS: 05/26/2017 SUBJECTIVE: She was noted awake and alert without any acute distress. Oxygen supplementation to be continued via nasal cannula. Shortness breath resolving. Minimal cough noted. There was no chest pain. OBJECTIVE: VITAL SIGNS: Normal temperature, respiratory rate 16, heart rate 62, blood pressure 132/50. The pulse oxygen saturation for the patient on room air 94% saturation. HEENT: Showed no acute change. Age-related changes. CARDIOVASCULAR: S1, S2 audible. LUNGS: which was noted without any wheezing or crackles at the present time. ABDOMEN: Soft and nontender. LABORATORY DATA: Renal panel today: BUN 35, creatinine 6.96, and sodium 132. IMPRESSION: 1. Resolving acute respiratory failure progressively at the present time. The patient has been successfully liberated from mechanical ventilator by 5 days ago. 2. Respiratory failure, on hemodialysis. 3. Congestive heart failure as well. PLAN OF TREATMENT: No changes in the plan of therapy at this time. Continue the patient's current therapy as previously in progress. He is responding to treatment. The oxygen supplementation is already improving. LUCIEN HARDING MD CM:PNTRANS [id number] LUCIEN GORDON MD 05/26/17 1748 interface
--- NOTE | ~2017-05-20 | PR ---
[place], [place] PROGRESS NOTE NAME: LEI DRAPER UNIT #: [id number] ROOM: [facility] DOCTOR: LUCIEN GERONIMO MD BIRTHDATE: [birth year] DOS: 05/22/2017 PULMONARY CRITICAL CARE, EVALUATION, AND MANAGEMENT SUBJECTIVE: The patient was seen and examined on 05/22/2017. She remains on mechanical ventilation. She has been noted following vocal commands with a little bit of sedation ongoing. She had been receiving hemodialysis today. She has not been noted any new acute hemodynamic instability at this time. The mechanical ventilation continued for the patient with assist control, volume control, and mechanical ventilation. The oxygen supplementation given for this patient 30% oxygen. She has not been noted any residual problems. The feeding was started for the patient yesterday seemed to be well tolerated. She still has drainage of the urine for this patient with end-stage renal failure about ____ mL of urine output was noted. The patient remains afebrile. OBJECTIVE: VITAL SIGNS: The vitals signs of the patient, which has been recorded showed the temperature noted as normal, respiratory rate 12-13, heart rate 55-48 for this patient, the blood pressure 141/65-156/81. The pulse oxygen saturation of the patient noted on 30% oxygen was 99% saturation. HEENT: Examination showed the patient is orally intubated. Orogastric tube is in place. Head was atraumatic. NECK: Supple. CARDIOVASCULAR: S1, S2 is audible. LUNGS: Moderate decreased breath sounds. Crackles scattered in the lungs without any wheezing. ABDOMEN: Soft, flat, nontender. EXTREMITIES: The patient noted without any acute edema. Chronic changes. MUSCULOSKELETAL: No deformities. SKIN: Showed no lesions or rashes. LABORATORY DATA: Urine culture for the patient that was noted with heavy growth of gram-negative bacilli for the patient. CBC of 05/22/2017 for the patient, WBC count 8.9, hemoglobin 10.7, hematocrit 33.0, and platelet count 155,000. Arterial blood gas assist control, volume control, pH of 7.35, pCO2 37, and pO2 105 with 30% oxygen. Blood cultures, 2 sets on 05/20/2017 of the patient, aerobic and anaerobic culture does not show any bacterial isolation. CT scan of the abdomen of the patient that was done yesterday ordered by Dr. Welsh on 05/21/2017 reported by the radiologist that the patient has bilateral pleural fluid, was noted with area of compression atelectasis. No acute abdominal pathologies were noted. The chest x-ray of the patient that was done this morning, the patient was personally reviewed, shows interstitial edema of the patient, congestive heart failure noted. Bilateral pleural fluid still was noted persistent with partial reduction. Endotracheal tube noted in proper position that was adjusted yesterday. NG tube for the patient noted in the stomach area. IMPRESSION: 1. The patient who has been currently noted with acute respiratory failure with acute pulmonary edema. The patient has congestive heart failure and bilateral [place], [place] PROGRESS NOTE NAME: LEI DRAPER UNIT #: [id number] ROOM: [facility] DOCTOR: MEAGHAN GORDON MD,LUCIEN BIRTHDATE: [birth year] pleural effusion. Possible pneumonia has been considered, but appears to be less likely for the patient so far with the current assessment. The culture of the sputum was pending for the patient's final results. Sputum was noted normal judd. Gram stain showed many white blood cells with gram-positive bacilli. 2. The patient with the possibility of urinary tract infection with colonization of the urinary tract as well. 3. The patient with end-stage renal failure, regular hemodialysis as well. There was no evidence of acute myocardial infarction. Bradyarrhythmia for the patient was still noted that persisted after discontinuation of the Diprivan. PLAN OF MANAGEMENT: Continue antibiotic for the patient for another 24 hours. Continue sedation with the use of the Versed as needed. Feeding to be continued as tolerated. Upon completion of the hemodialysis today for the patient, sedation will be completely discontinued and placed on hold. Once the patient noted fully awake and alert, she will be given a trial of CPAP 5, pressure support of 10 for 2 hours. If tolerated, arterial blood gas will be obtained and assessed. If adequate ventilation for the patient were noted as oxygenation stable hemodynamically and medical status, the patient may be liberated from mechanical ventilation. The pleural fluid continue to monitor for this patient closely. The maximal removal of free water should be done with the hemodialysis. If the pleural fluid remains persistent, the patient will be assessed for possibility of thoracentesis later on with ultrasound guidance assessment. All other supportive therapy, plan of management, and care plan. Usual treatment. Continuation of the bronchodilators to help continue to mobilize secretion. Ventilator bundle management remains unchanged as well. TIME SPENT: Total time in pulmonary and critical evaluation management for the patient was 38 minutes. LUCIEN HARDING MD CM:PNTRANS 1502 [id number] LUCIEN GORDON MD 05/23/17 0522 interface
--- NOTE | ~2017-05-20 | PR ---
[place], [place] PROGRESS NOTE NAME: LEI DRAPER UNIT #: [id number] ROOM: 421 DOCTOR: MANDA BAI MD BIRTHDATE: [birth year] DOS: SUBJECTIVE: The patient has been admitted to hospital with acute hypoxia with respiratory failure and also had ____, congestive heart failure and end-stage renal failure. She is progressively getting better and has been seen by hat lacer and on renal dialysis. She is conscious, alert and oriented. No chest pain. No difficulty breathing. No nausea. No vomiting. Her blood culture is negative. OBJECTIVE: VITAL SIGNS: Her blood pressure 132/50, pulse 62, respirations 16, temperature 98.3. CHEST: Having occasional wheezing with increased expiration. No crepitation. HEART: Regular. ABDOMEN: Soft. MANDA BAI MD CM:PNTRANS 1222 1740 MANDA BAI MD 05/26/17 1739 interface
[~2017-05-20 05:22] MED LIST changes: +ASPIR LOW81 MG PO; +LISINOPRIL5 MG PO; +NOVOLOG100 UNIT/1 SQ; +OMEPRAZOLE MAGN20 MG PO; +SENNA-S TABLET1 EACH PO
[2017-05-20 06:07] LABS: BASO % 0.5 % (0.0-1.0); EOS # 0.1 10*3/uL (0.0-0.4); EOS % 0.7 % (1.0-4.0); HEMATOCRIT 36.4 % (37.0-47.0); HEMOGLOBIN 11.9 g/dl (12.0-16.0); LYMPH # 1.1 10*3/uL (1.3-4.4); LYMPH % 13.2 % (27.0-41.0); MEAN CELL VOLUME 91.7 fl (81.0-99.0); MEAN CORPUSCULAR HGB CONC 32.7 g/dl (33.0-37.0); MEAN PLATELET VOLUME 10.8 fl (9.6-12.3); MONO # 0.3 10*3/uL (0.1-1.0); MONO % 4.1 % (3.0-9.0); NEUT # 6.6 10*3/uL (2.3-7.9); NEUT % 81.1 % (47.0-73.0); PLATELET COUNT AUTOMATED 206 10*3/uL (130-400); RED BLOOD COUNT 3.97 10*6/uL (4.10-5.10); WHITE BLOOD COUNT 8.1 10*3/uL (4.8-10.8)
[2017-05-20 06:21] LABS: ABG BASE EXCESS -4.1 mmol/L (-2.0-2.0); ABG HCO3 20.2 mmol/l (22-26); ABG O2 SATURATION 93.8 % (95-97); ARTERIAL BLOOD GAS PCO2 34.6 mmHg (35-45); ARTERIAL BLOOD GAS PH 7.379 (7.35-7.45); ARTERIAL BLOOD GAS PO2 74.5 mmHg (80-90)
[2017-05-20 06:31] LABS: ALBUMIN 3.8 gm/dl (3.1-4.5); CREATININE 6.62 mg/dL (0.55-1.02); PHOSPHOROUS 4.7 mg/dL (2.5-4.9); POTASSIUM 4.2 mmol/L (3.5-5.1); TOTAL PROTEIN 7.8 gm/dL (6.4-8.2)
[2017-05-20 06:34] LABS: TROPONIN I 0.569 ng/ml (<0.045)
[2017-05-20 13:49] LABS: ABG HCO3 19.9 mmol/l (22-26); ABG O2 SATURATION 83.5 % (95-97); ARTERIAL BLOOD GAS PCO2 51.3 mmHg (35-45); ARTERIAL BLOOD GAS PH 7.206 (7.35-7.45); ARTERIAL BLOOD GAS PO2 60.7 mmHg (80-90)
[2017-05-20 13:50] LABS: ABG BASE EXCESS -8.2 mmol/L (-2.0-2.0)
[2017-05-20] MEDS ORDERED: APRESOLINE25 MG PO (14:41)
[2017-05-20] MEDS ORDERED: NORVASC5 MG PO (14:47)
[2017-05-20] MEDS ORDERED: COREG25 MG PO (14:50)
[2017-05-20] MEDS ORDERED: LEVEMIR FL100 UNIT/1 SC (14:52)
[2017-05-20] MEDS ORDERED: PLAVIX75 M1 PO (14:53)
[2017-05-20 17:25] LABS: ABG BASE EXCESS -4.4 mmol/L (-2.0-2.0); ABG HCO3 19.4 mmol/l (22-26); ABG O2 SATURATION 99.8 % (95-97); ARTERIAL BLOOD GAS PH 7.396 (7.35-7.45)
[2017-05-20 19:58] LABS: BILIRUBIN NEGATIVE (NEGATIVE); BLOOD 3+ (NEGATIVE); CLARITY CLOUDY (CLEAR); COLOR YELLOW (YELLOW); GLUCOSE NEGATIVE (NEGATIVE); KETONE NEGATIVE (NEGATIVE); LEUKO ESTERASE 2+ (NEGATIVE); NITRITE NEGATIVE (NEGATIVE); SPECIFIC GRAVITY 1.015 (1.005-1.030); UROBILINOGEN 0.2 E.U./dl (0.2-1.0)
[2017-05-20 20:08] LABS: BACTERIA 4+; EPITHELIAL CELLS 0-2; MUCOUS TRACE; RBC TNTC rbc/hpf (0-2); WBC TNTC wbc/hpf (0-5)
[2017-05-21] VITALS (12 sets, daily range): BP systolic 97–173; BP diastolic 42–109
[2017-05-21 05:51] LABS: ALBUMIN 3.1 gm/dl (3.1-4.5); CREATININE 5.74 mg/dL (0.55-1.02); POTASSIUM 3.7 mmol/L (3.5-5.1); TOTAL PROTEIN 6.7 gm/dL (6.4-8.2)
[2017-05-21 06:06] LABS: BASO % 0.4 % (0.0-1.0); EOS # 0.1 10*3/uL (0.0-0.4); EOS % 0.6 % (1.0-4.0); HEMATOCRIT 34.8 % (37.0-47.0); HEMOGLOBIN 11.2 g/dl (12.0-16.0); LYMPH % 11.9 % (27.0-41.0); MEAN CELL VOLUME 92.3 fl (81.0-99.0); MEAN CORPUSCULAR HGB 29.7 pg (27.0-31.0); MEAN CORPUSCULAR HGB CONC 32.2 g/dl (33.0-37.0); MONO # 0.5 10*3/uL (0.1-1.0); MONO % 6.1 % (3.0-9.0); NEUT # 6.7 10*3/uL (2.3-7.9); NEUT % 80.8 % (47.0-73.0); PLATELET COUNT AUTOMATED 158 10*3/uL (130-400); RED BLOOD COUNT 3.77 10*6/uL (4.10-5.10); WHITE BLOOD COUNT 8.3 10*3/uL (4.8-10.8)
[2017-05-21 07:26] LABS: ABG BASE EXCESS -3.5 mmol/L (-2.0-2.0); ABG HCO3 21.1 mmol/l (22-26); ABG O2 SATURATION 96.2 % (95-97); ARTERIAL BLOOD GAS PCO2 37.5 mmHg (35-45); ARTERIAL BLOOD GAS PH 7.364 (7.35-7.45); ARTERIAL BLOOD GAS PO2 95.6 mmHg (80-90)
[2017-05-21 10:03] LABS: PHOSPHOROUS 3.8 mg/dL (2.5-4.9)
[2017-05-22] VITALS: BP 156/81
[2017-05-22 04:00] VITALS: BP 141/65
[2017-05-22 05:43] LABS: ALBUMIN 2.9 gm/dl (3.1-4.5); CREATININE 6.13 mg/dL (0.55-1.02); PHOSPHOROUS 4.4 mg/dL (2.5-4.9); POTASSIUM 3.6 mmol/L (3.5-5.1); TOTAL PROTEIN 6.8 gm/dL (6.4-8.2)
[2017-05-22 06:02] LABS: BASO % 0.1 % (0.0-1.0); EOS # 0.1 10*3/uL (0.0-0.4); EOS % 0.9 % (1.0-4.0); HEMOGLOBIN 10.7 g/dl (12.0-16.0); LYMPH # 0.7 10*3/uL (1.3-4.4); LYMPH % 7.7 % (27.0-41.0); MEAN CELL VOLUME 92.7 fl (81.0-99.0); MEAN CORPUSCULAR HGB 30.1 pg (27.0-31.0); MEAN CORPUSCULAR HGB CONC 32.4 g/dl (33.0-37.0); MEAN PLATELET VOLUME 11.5 fl (9.6-12.3); MONO # 0.3 10*3/uL (0.1-1.0); MONO % 3.7 % (3.0-9.0); NEUT # 7.7 10*3/uL (2.3-7.9); PLATELET COUNT AUTOMATED 155 10*3/uL (130-400); RED BLOOD COUNT 3.56 10*6/uL (4.10-5.10); WHITE BLOOD COUNT 8.9 10*3/uL (4.8-10.8)
[2017-05-22 07:18] LABS: ABG HCO3 20.7 mmol/l (22-26); ABG O2 SATURATION 97.5 % (95-97); ARTERIAL BLOOD GAS PCO2 37.2 mmHg (35-45); ARTERIAL BLOOD GAS PH 7.358 (7.35-7.45)
[2017-05-22 08:00] VITALS: BP 159/64
[2017-05-22 12:00] VITALS: BP 159/76
[2017-05-22 15:23] LABS: ABG BASE EXCESS 0.8 mmol/L (-2.0-2.0); ABG HCO3 24.3 mmol/l (22-26); ABG O2 SATURATION 97.5 % (95-97); ARTERIAL BLOOD GAS PCO2 36.9 mmHg (35-45); ARTERIAL BLOOD GAS PH 7.434 (7.35-7.45); ARTERIAL BLOOD GAS PO2 98.8 mmHg (80-90)
[2017-05-22 16:00] VITALS: BP 180/79
[2017-05-22 20:00] VITALS: BP 156/73
[2017-05-23] VITALS (7 sets, daily range): BP systolic 112–174; BP diastolic 40–78
[2017-05-23 06:11] LABS: BASO % 0.2 % (0.0-1.0); EOS % 0.4 % (1.0-4.0); HEMATOCRIT 31.9 % (37.0-47.0); HEMOGLOBIN 10.2 g/dl (12.0-16.0); LYMPH % 10.6 % (27.0-41.0); MEAN CELL VOLUME 93.5 fl (81.0-99.0); MEAN CORPUSCULAR HGB 29.9 pg (27.0-31.0); MEAN PLATELET VOLUME 11.2 fl (9.6-12.3); MONO # 0.7 10*3/uL (0.1-1.0); MONO % 7.9 % (3.0-9.0); NEUT # 7.4 10*3/uL (2.3-7.9); NEUT % 80.6 % (47.0-73.0); PLATELET COUNT AUTOMATED 167 10*3/uL (130-400); RED BLOOD COUNT 3.41 10*6/uL (4.10-5.10); RED CELL DISTRI WIDTH 15.2 % (0-14.5); WHITE BLOOD COUNT 9.1 10*3/uL (4.8-10.8)
[2017-05-23 06:30] LABS: ALBUMIN 2.8 gm/dl (3.1-4.5); CREATININE 4.97 mg/dL (0.55-1.02); PHOSPHOROUS 3.2 mg/dL (2.5-4.9); POTASSIUM 3.5 mmol/L (3.5-5.1); TOTAL PROTEIN 6.9 gm/dL (6.4-8.2)
[2017-05-24] VITALS (9 sets, daily range): BP systolic 84–193; BP diastolic 40–100
[2017-05-24 05:32] LABS: ALBUMIN 2.7 gm/dl (3.1-4.5); CREATININE 6.36 mg/dL (0.55-1.02); PHOSPHOROUS 4.6 mg/dL (2.5-4.9); POTASSIUM 4.1 mmol/L (3.5-5.1); TOTAL PROTEIN 6.7 gm/dL (6.4-8.2)
[2017-05-24 12:29] LABS: BASO % 0.3 % (0.0-1.0); EOS # 0.1 10*3/uL (0.0-0.4); EOS % 0.9 % (1.0-4.0); HEMATOCRIT 35.3 % (37.0-47.0); HEMOGLOBIN 11.5 g/dl (12.0-16.0); LYMPH # 1.1 10*3/uL (1.3-4.4); LYMPH % 13.2 % (27.0-41.0); MEAN CELL VOLUME 93.1 fl (81.0-99.0); MEAN CORPUSCULAR HGB 30.3 pg (27.0-31.0); MEAN CORPUSCULAR HGB CONC 32.6 g/dl (33.0-37.0); MONO # 0.6 10*3/uL (0.1-1.0); MONO % 7.4 % (3.0-9.0); NEUT # 6.7 10*3/uL (2.3-7.9); NEUT % 77.7 % (47.0-73.0); PLATELET COUNT AUTOMATED 204 10*3/uL (130-400); RED BLOOD COUNT 3.79 10*6/uL (4.10-5.10); RED CELL DISTRI WIDTH 15.2 % (0-14.5); WHITE BLOOD COUNT 8.6 10*3/uL (4.8-10.8)
[2017-05-25] VITALS (7 sets, daily range): BP systolic 115–156; BP diastolic 53–64
[2017-05-25 05:34] LABS: ALBUMIN 3.1 gm/dl (3.1-4.5); CREATININE 4.81 mg/dL (0.55-1.02); PHOSPHOROUS 4.6 mg/dL (2.5-4.9); POTASSIUM 3.9 mmol/L (3.5-5.1)
[2017-05-26] VITALS: BP 132/45
[2017-05-26 08:00] VITALS: BP 132/50
[2017-05-26 08:05] LABS: ALBUMIN 2.8 gm/dl (3.1-4.5); CREATININE 6.96 mg/dL (0.55-1.02); PHOSPHOROUS 5.9 mg/dL (2.5-4.9); POTASSIUM 4.1 mmol/L (3.5-5.1)
[2017-05-26 12:00] VITALS: BP 153/58
[2017-05-26 16:00] VITALS: BP 154/53
[2017-05-26 20:00] VITALS: BP 148/76
[2017-05-27] VITALS: BP 150/53; BP 94/52
[2017-05-27 07:13] LABS: ALBUMIN 2.8 gm/dl (3.1-4.5); CREATININE 8.6 mg/dL (0.55-1.02); PHOSPHOROUS 6.1 mg/dL (2.5-4.9); POTASSIUM 4.1 mmol/L (3.5-5.1)
[2017-05-27 08:00] VITALS: BP 138/56
[2017-05-27 12:00] VITALS: BP 156/61
[2017-05-27 16:00] VITALS: BP 147/52
[2017-05-27 20:00] VITALS: BP 113/83
[2017-05-28] VITALS: BP 125/49
[2017-05-28 07:31] LABS: ALBUMIN 2.9 gm/dl (3.1-4.5); CREATININE 5.69 mg/dL (0.55-1.02); POTASSIUM 3.9 mmol/L (3.5-5.1)
[2017-05-28 08:00] VITALS: BP 168/67
[2017-05-28 12:00] VITALS: BP 132/57
== END 2017-05-28 16:46 | disposition other institution (70) | DRG 871 ==
LOC: ED 05:22 → EDHOLD 07:00 → 4E 07:00 → ICCU 07:00 → 4E 05-25 15:56
PROVIDERS: Emergency Medicine; Internal Medicine; Internal Medicine Critical Care Medicine; Internal Medicine Nephrology; Student in an Organized Health Care Education/Training Program
DX: A41.9 Sepsis, unspecified organism (principal); J18.9 Pneumonia, unspecified organism; J96.01 Acute respiratory failure with hypoxia; I13.2 Hypertensive heart and chronic kidney disease with heart failure and with stage 5 chronic kidney disease, or end stage renal disease; K57.31 Diverticulosis of large intestine without perforation or abscess with bleeding; E11.65 Type 2 diabetes mellitus with hyperglycemia; I50.9 Heart failure, unspecified; N18.6 End stage renal disease; D63.1 Anemia in chronic kidney disease; N39.0 Urinary tract infection, site not specified; N25.81 Secondary hyperparathyroidism of renal origin; E87.1 Hypo-osmolality and hyponatremia; R65.20 Severe sepsis without septic shock; E66.09 Other obesity due to excess calories; E03.9 Hypothyroidism, unspecified; E78.5 Hyperlipidemia, unspecified; M54.9 Dorsalgia, unspecified; G89.29 Other chronic pain; E83.39 Other disorders of phosphorus metabolism; I25.119 Atherosclerotic heart disease of native coronary artery with unspecified angina pectoris; Y95 Nosocomial condition; B96.20 Unspecified Escherichia coli [E. coli] as the cause of diseases classified elsewhere; Z90.710 Acquired absence of both cervix and uterus; Z99.2 Dependence on renal dialysis; Z79.4 Long term (current) use of insulin; Z86.73 Personal history of transient ischemic attack (TIA), and cerebral infarction without residual deficits; I25.2 Old myocardial infarction; Z95.5 Presence of coronary angioplasty implant and graft; Z79.82 Long term (current) use of aspirin; Z79.899 Other long term (current) drug therapy; Z90.49 Acquired absence of other specified parts of digestive tract; Z84.1 Family history of disorders of kidney and ureter; Z82.3 Family history of stroke; Z88.6 Allergy status to analgesic agent; Z68.30 Body mass index [BMI] 30.0-30.9, adult

== ENCOUNTER → 2017-09-03 | Outpatient (CLI) | payer MEDICARE, OTHER ==
[~2017-09-03] MED LIST changes: +APRESOLINE25 MG PO; +LEVEMIR FL100 UNIT/1 SC; +NORVASC5 MG PO; +PLAVIX75 M1 PO
== END | disposition home or self-care (01) ==
LOC: RAD 14:49
DX: M47.892 Other spondylosis, cervical region (principal); M48.02 Spinal stenosis, cervical region; M85.88 Other specified disorders of bone density and structure, other site

== ENCOUNTER → 2017-10-09 | Outpatient (CLI) | payer MEDICARE, OTHER | END | disposition home or self-care (01) | LOC: MRI 12:49 | DX: M50.20 Other cervical disc displacement, unspecified cervical region (principal); M50.30 Other cervical disc degeneration, unspecified cervical region; M48.02 Spinal stenosis, cervical region; M47.892 Other spondylosis, cervical region; I10 Essential (primary) hypertension; E11.9 Type 2 diabetes mellitus without complications ==

== ENCOUNTER 2018-02-23 09:08 | Inpatient (IN) | payer MEDICARE, OTHER ==
[2018-02-23] VITALS (7 sets, daily range): BP systolic 146–215; BP diastolic 65–100
[~2018-02-23] VITALS: Ht 160 cm; Wt 74.4 kg
--- NOTE | ~2018-02-23 | CON ---
[place], [place] REPORT OF CONSULTATION NAME: LEI DRAPER UNIT #: [id number] ROOM: 520 DOCTOR: MILY GARCÍA MD BIRTHDATE: [birth year] DOS: 02/24/2018 HISTORY OF PRESENT ILLNESS: This is an 87-year-old -[place] woman whom I have seen for many years now. She has end-stage renal disease and also has hypertension along with many other problems. She had become short of breath at night before she was admitted to the hospital. She just could not breathe and had cough with clear sputum. She did not have any fever or chills and no chest pain or palpitations. She does not recall any swelling in the legs. This lady does walk around at home, albeit with some difficulty. Blood pressure in the Emergency Department was 215/99 and was persistently high and eventually came down with medication. She received hemodialysis this morning and after that the breathing got better. PAST MEDICAL HISTORY: Essential hypertension, end-stage renal disease, coronary artery disease, GI bleeding in the remote past, acute myocardial infarction, TIA, hyperlipidemia, secondary hyperparathyroidism, hypothyroidism, chronic anemia, morbid obesity, type 2 diabetes mellitus. PAST SURGICAL HISTORY: Cholecystectomy, coronary stents, hysterectomy, tonsillectomy. SOCIAL HISTORY: She does not smoke nor does she drink alcoholic beverages, lives at home. HOME MEDICATIONS: Amlodipine 5 mg daily, aspirin 81 daily, atorvastatin 80 daily, carvedilol 25 mg b.i.d., furosemide 40 mg daily, hydralazine 25 mg b.i.d., levothyroxine 25 mcg daily, lisinopril 5 mg daily, omeprazole 20 mg daily and insulin. PHYSICAL EXAMINATION: GENERAL: Revealed a patient who is alert, oriented and speech is a little difficult to comprehend because of an old stroke. She is a little anemic. Mucous membranes are pale. No finger clubbing. VITAL SIGNS: Pulse is regular at 84 beats per minute, blood pressure 130/70, the last several blood pressure readings have been pretty decent and yesterday evening, it was 180/100. NECK: JVP is normal. AJR is negative. There is no carotid bruit. CARDIOVASCULAR: Cardiac auscultation reveals P1 and P2 to be of almost equal intensity. No obvious murmurs were present and she had no friction rub. EXTREMITIES: No edema in the lower extremities. Pedal pulses were palpable, albeit of small volume bilaterally. RESPIRATORY: Breath sounds are fairly decent with very few crackles. DIAGNOSTIC DATA: A chest x-ray demonstrated normal heart size and mild pulmonary congestion. CT scan demonstrated more obvious abnormality. ECG was not available. Monitor shows normal sinus rhythm with interventricular conduction defect. An echocardiogram was done today. It demonstrated an LV ejection fraction of [place], [place] REPORT OF CONSULTATION NAME: LEI DRAPER UNIT #: [id number] ROOM: 520 DOCTOR: MILY GARCÍA MD BIRTHDATE: [birth year] 55% and normal right ventricular systolic function. There was moderate mitral regurgitation, moderate tricuspid regurgitation. Pulmonary artery systolic pressure was calculated to be 74 mmHg. IMPRESSION: 1. This patient had severe hypertension, which caused acute pulmonary congestion that led to acute onset of shortness of breath. I think this was basically volume shift to the pulmonary vasculature because of severe hypertension. Overall, she was dialyzed and 2 kilos of fluid was removed. At this time, she seems to be doing fine. 2. Severe pulmonary hypertension is present and a part of this may be from left-sided pressure being high. With the dialysis, it probably will improve. 3. Coronary artery disease. This is asymptomatic. 4. No further cardiac workup is recommended at this time. I thank you for this consult. MILY GARCÍA MD CM:CONSTR:REPORT OF CONSULTATION 1752 02/25/18 0148 interface
--- NOTE | ~2018-02-23 | EKG ---
[place], [place] ELECTROCARDIOGRAM REPORT NAME: LEI DRAPER UNIT #: [id number] ROOM: 520 DOCTOR: GAYATHRI DRAFT REPORT BIRTHDATE: [address] 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
--- NOTE | ~2018-02-23 | PR ---
[place], [place] PROGRESS NOTE NAME: LEI DRAPER [facility] #: [id number] UNIT #: [id number] ROOM: 520 DOCTOR: ANA ZELAYA MD BIRTHDATE: [birth year] DOS: 02/25/2018 SUBJECTIVE: A 24-hour events noted. Discussed with the nursing staff. The patient was seen by Dr. Espinal yesterday. The patient had an echocardiogram done and the left ventricle is normal size. Aortic valve shows sclerosis. Ejection fraction is about 55%. Moderate mitral regurgitation, moderate tricuspid regurgitation. There is severe pulmonary hypertension with a right ventricular systolic pressure of 74 mmHg. The patient is being followed by railroad worker also. Blood pressure has significantly improved since admission. The patient had a consultation done by Dr. Espinal, who knows the patient quite well. REVIEW OF SYSTEMS: As per HPI. OBJECTIVE: VITAL SIGNS: Blood pressure is 140/60, the patient is in sinus rhythm. HEENT: Unremarkable. NECK: Supple, no JVD. LUNGS: Diminished breath sounds. HEART: Sounds are regular. ABDOMEN: Soft, nontender. EXTREMITIES: No clubbing or edema. LABORATORY DATA: Shows hemoglobin 12.3, hematocrit 38.7. Creatinine is 6.4. Electrolytes are normal. IMPRESSION: The patient with severe pulmonary hypertension, pulmonary vascular congestion, and end-stage renal disease. RECOMMENDATIONS: Continue the present care. Consideration should be given a pulmonary evaluation because of severe pulmonary hypertension as documented by the echocardiogram. Continue with other medications as ordered and we will follow up. [place], [place] PROGRESS NOTE NAME: LEI DRAPER UNIT #: [id number] ROOM: 520 DOCTOR: ANA ZELAYA MD BIRTHDATE: [birth year] ANA ZELAYA MD CM:PNMELISSA [id number] [id number] ANA ZELAYA MD 03/05/18 0653 interface
--- NOTE | ~2018-02-23 | CON ---
[place], [place] REPORT OF CONSULTATION NAME: LEI DRAPER UNIT #: [id number] ROOM: [facility] DOCTOR: CLARITZA GONZALEZ MD BIRTHDATE: [birth year] DOS: NEPHROLOGY CONSULTATION REASON FOR CONSULTATION: Management of dialysis/the patient known to you. HISTORY OF PRESENT ILLNESS: The patient is an 87-year-old female. She has a past medical history of end-stage renal disease, on hemodialysis Saturday, Saturday, Saturday through a tunneled dialysis catheter. She gives a history of hypertension, hyperlipidemia, anemia. The patient apparently was admitted this morning. Her name showed up on our consult list. It seems she was being admitted for shortness of breath and hypertensive urgency. The patient does feel better. I am not sure what transpired in the ER. When I saw her, she was eating lunch. She states her breathing is much better. She denied any headaches, nausea or vomiting. She tells me she was at dialysis on Saturday. The patient is due for dialysis tomorrow. She denies fever, chills, abdominal pain, nausea, vomiting or diarrhea. ALLERGIES: CODEINE. HOME MEDICATIONS: Were reviewed on the chart. PAST MEDICAL HISTORY: 1. End-stage renal disease, on hemodialysis stated above. 2. Tunneled dialysis catheter. 3. Hypertension. 4. Coronary artery disease. 5. Diverticulosis. 6. Anemia of GI bleed. 7. Hyperlipidemia. 8. Secondary hyperparathyroidism. 9. Hypothyroidism. 10. TIA. 11. Diabetes mellitus. 12. History of cholecystectomy. 13. Cardiac stenting. 14. Hysterectomy. 15. Tonsillectomy. 16. Colonoscopy with polypectomy. FAMILY HISTORY: Positive for chronic kidney disease in her father with details unclear. Otherwise, noncontributory. SOCIAL HISTORY: No tobacco, alcohol or illicit drugs. REVIEW OF SYSTEMS: As per HPI, otherwise, a 10-point review of systems was reviewed and was negative. PHYSICAL EXAMINATION: VITAL SIGNS: Temperature afebrile, pulse 75, respiratory rate 20, blood [place], [place] REPORT OF CONSULTATION NAME: LEI DRAPER UNIT #: [id number] ROOM: [facility] DOCTOR: CLARITZA GONZALEZ MD BIRTHDATE: [birth year] pressure 146/65. GENERAL: She is awake, alert, comfortable, in no acute distress. HEENT: Shows no JVD. Sclerae are anicteric. Mucous membranes are moist. Pharynx is clear. NECK: Supple. Trachea is midline. There is no lymphadenopathy or thyromegaly. LUNGS: Diminished breath sounds bilaterally. There is no appreciable wheeze. She is not using accessory muscles of respiration. HEART: S1, S2. No rub, thrill or gallop. ABDOMEN: Soft, nontender. There is no organomegaly, rigidity, rebound or guarding. There is no CVA tenderness. EXTREMITIES: No edema. There is no lower extremity lymphadenopathy. Distal pulses are 2+. SKIN: Showed no overt rash. There was no petechia or purpura. Skin temperature is warm. NEUROLOGIC: She is awake, alert and following commands. Cranial nerves intact. LABORATORY DATA: Hemoglobin 12.3, white count 9.0, platelets 237. Lactic acid 1.5, BUN 37, creatinine 6.5, glucose 231, sodium 135, potassium 4.9, carbon dioxide 28, magnesium 2.2, calcium 9.2. IMPRESSION: 1. End-stage renal disease, on hemodialysis Saturday, Saturday, Saturday through a tunneled dialysis catheter. 2. Dyspnea, which has improved. 3. Hypertension with hypertensive urgency. 4. Diabetes mellitus. 5. Hypothyroidism. PLAN: 1. We will plan for dialysis tomorrow. 2. Continue ongoing supportive care. Continue blood pressure control with home medications. 3. Standard renal diet. 4. Await plans per the primary service. We will continue dialysis as per normal schedule with fluid removal as tolerated. Thank you for this consultation. We will follow with you. CLARITZA GONZALEZ MD CM:CONSTR:REPORT OF CONSULTATION 1457 02/24/18 7499 interface
[2018-02-23 09:43] LABS: BASO % 0.4 % (0.0-1.0); EOS # 0.1 10*3/uL (0.0-0.4); HEMATOCRIT 38.7 % (37.0-47.0); HEMOGLOBIN 12.3 g/dl (12.0-16.0); LYMPH # 1.1 10*3/uL (1.3-4.4); LYMPH % 12.2 % (27.0-41.0); MEAN CELL VOLUME 91.9 fl (81.0-99.0); MEAN CORPUSCULAR HGB 29.2 pg (27.0-31.0); MEAN CORPUSCULAR HGB CONC 31.8 g/dl (33.0-37.0); MEAN PLATELET VOLUME 10.1 fl (9.6-12.3); MONO # 0.5 10*3/uL (0.1-1.0); MONO % 5.1 % (3.0-9.0); NEUT # 7.3 10*3/uL (2.3-7.9); NEUT % 81.1 % (47.0-73.0); PLATELET COUNT AUTOMATED 237 10*3/uL (130-400); RED BLOOD COUNT 4.21 10*6/uL (4.10-5.10); RED CELL DISTRI WIDTH 15.7 % (0-14.5)
[2018-02-23 09:52] LABS: ACT PARTIAL THROMBO TIME 26.4 SECONDS (20.8-31.5)
[2018-02-23 10:00] LABS: ALBUMIN 3.5 gm/dl (3.1-4.5); CREATININE 6.5 mg/dL (0.55-1.02)
[2018-02-23 10:05] LABS: TROPONIN I 0.271 ng/ml (<0.045)
[2018-02-23 10:12] LABS: POTASSIUM 4.9 mmol/L (3.5-5.1)
[2018-02-24] VITALS: BP 120/78
[2018-02-24 04:00] VITALS: BP 132/90
[2018-02-24 08:00] VITALS: BP 150/100
[2018-02-24 12:00] VITALS: BP 140/60
[2018-02-24 16:00] VITALS: BP 138/70
[2018-02-24 20:00] VITALS: BP 131/77
[2018-02-25] VITALS: BP 143/60
[2018-02-25 06:53] LABS: BASO % 0.4 % (0.0-1.0); EOS # 0.1 10*3/uL (0.0-0.4); EOS % 1.5 % (1.0-4.0); HEMATOCRIT 36.5 % (37.0-47.0); HEMOGLOBIN 11.2 g/dl (12.0-16.0); LYMPH # 1.2 10*3/uL (1.3-4.4); LYMPH % 15.9 % (27.0-41.0); MEAN CELL VOLUME 93.1 fl (81.0-99.0); MEAN CORPUSCULAR HGB 28.6 pg (27.0-31.0); MEAN CORPUSCULAR HGB CONC 30.7 g/dl (33.0-37.0); MEAN PLATELET VOLUME 10.4 fl (9.6-12.3); MONO # 0.5 10*3/uL (0.1-1.0); MONO % 6.3 % (3.0-9.0); NEUT # 5.7 10*3/uL (2.3-7.9); NEUT % 75.6 % (47.0-73.0); PLATELET COUNT AUTOMATED 209 10*3/uL (130-400); RED BLOOD COUNT 3.92 10*6/uL (4.10-5.10); RED CELL DISTRI WIDTH 15.6 % (0-14.5); WHITE BLOOD COUNT 7.5 10*3/uL (4.8-10.8)
[2018-02-25 07:12] LABS: ALBUMIN 3.1 gm/dl (3.1-4.5); CREATININE 6.44 mg/dL (0.55-1.02); POTASSIUM 4.9 mmol/L (3.5-5.1); TOTAL PROTEIN 7.8 gm/dL (6.4-8.2)
[2018-02-25 08:00] VITALS: BP 150/70; BP 158/64
[2018-02-25 12:00] VITALS: BP 152/54
[2018-02-25 16:00] VITALS: BP 131/42
[2018-02-25 20:00] VITALS: BP 151/74
[2018-02-26] VITALS: BP 185/77
[2018-02-26 08:00] VITALS: BP 150/50
[2018-02-26 13:32] VITALS: BP 130/58
== END 2018-02-26 14:57 | disposition home or self-care (01) | DRG 291 ==
LOC: ED 09:08 → 5E 10:32 → EDHOLD 10:32 → ICCU 10:32 → 5E 12:23 → ICCU 19:49 → 5E 02-24 18:55
PROVIDERS: Emergency Medicine; Internal Medicine
PROC: 5A1D70Z Performance of Urinary Filtration, Intermittent, Less than 6 Hours Per Day (ICD-10-PCS; principal; 2018-02-23)
PROC: 5A1D70Z Performance of Urinary Filtration, Intermittent, Less than 6 Hours Per Day (ICD-10-PCS; 2018-02-25)
DX: I13.0 Hypertensive heart and chronic kidney disease with heart failure and stage 1 through stage 4 chronic kidney disease, or unspecified chronic kidney disease (principal); J96.01 Acute respiratory failure with hypoxia; N18.6 End stage renal disease; E87.1 Hypo-osmolality and hyponatremia; I27.20 Pulmonary hypertension, unspecified; E11.22 Type 2 diabetes mellitus with diabetic chronic kidney disease; E11.65 Type 2 diabetes mellitus with hyperglycemia; I16.0 Hypertensive urgency; Z88.5 Allergy status to narcotic agent; G89.29 Other chronic pain; M54.9 Dorsalgia, unspecified; I25.10 Atherosclerotic heart disease of native coronary artery without angina pectoris; K57.90 Diverticulosis of intestine, part unspecified, without perforation or abscess without bleeding; E78.5 Hyperlipidemia, unspecified; E21.3 Hyperparathyroidism, unspecified; E83.41 Hypermagnesemia; I50.9 Heart failure, unspecified; E66.9 Obesity, unspecified; Z90.49 Acquired absence of other specified parts of digestive tract; Z90.710 Acquired absence of both cervix and uterus; Z95.1 Presence of aortocoronary bypass graft; Z95.5 Presence of coronary angioplasty implant and graft; I25.2 Old myocardial infarction; Z82.3 Family history of stroke; Z84.1 Family history of disorders of kidney and ureter; Z82.49 Family history of ischemic heart disease and other diseases of the circulatory system; Z99.2 Dependence on renal dialysis; Z79.4 Long term (current) use of insulin; E03.9 Hypothyroidism, unspecified; E87.70 Fluid overload, unspecified

== ENCOUNTER 2018-03-08 06:06 | Inpatient (IN) | payer MEDICARE, OTHER ==
[~2018-03-08] VITALS: Ht 154.9 cm; Wt 72.8 kg
--- NOTE | ~2018-03-08 | PR ---
[place], [place] PROGRESS NOTE NAME: LEI DRAPER UNIT #: [id number] ROOM: 411 DOCTOR: ANA ZELAYA MD BIRTHDATE: [birth year] DOS: 03/12/2018 SUBJECTIVE: The patient is being dialyzed at this point. Cardiac status appears to be stable. Breathing is also significantly improved. Hemodynamically also much more stable. She moved out of the unit at this point. REVIEW OF SYSTEMS: Somewhat limited. Does have shortness of breath. No GI or issues. PHYSICAL EXAMINATION: VITAL SIGNS: Blood pressure was significantly higher earlier, is much better 120/40. She is in sinus rhythm. NECK: Supple, no JVD. LUNGS: Clear. HEART: Sounds are regular. NEUROLOGIC: Stable. LABORATORY DATA: Hemoglobin 11.3 and hematocrit 36.3. Electrolytes are normal. Creatinine is 6.7. IMPRESSION: Acute on chronic renal failure, history of respiratory failure, hypertension, and heart rate is much better. RECOMMENDATIONS: Continue the present care. Monitor the heart rate and blood pressure closely and we will follow up. ANA ZELAYA MD CM:PNTRANS [id number] ANA ZELAYA MD 03/12/18 1545 interface
--- NOTE | ~2018-03-08 | CON ---
[place], [place] REPORT OF CONSULTATION NAME: LEI DRAPER UNIT #: [id number] ROOM: [facility] DOCTOR: MILY GARCÍA MD BIRTHDATE: [birth year] DOS: 03/10/2018 HISTORY OF PRESENT ILLNESS: This is an 88-year-old -[place] woman with a history of coronary artery disease. Some 11 years ago, she had an acute anterior wall myocardial infarction and LAD was stented. She has essential hypertension that has been difficult to tame at times. She also has diabetes mellitus, hyperlipidemia, GERD, diabetic neuropathy and of course diabetes mellitus, chronic anemia and sinus bradycardia. She had a stroke in the remote past that has affected her speech and of course ability to ambulate had been affected as well. She has end-stage renal disease and has been dialyzing 3 times a week. She also carries a diagnosis of hypothyroidism, secondary hyperparathyroidism and has had cholecystectomy, tonsillectomy, hysterectomy and polypectomy/colon polyps were removed. No alcohol. She has never used alcoholic beverages. Never used cigarettes. She was in the hospital a couple of weeks ago with some chest pain and some volume overload and was dialyzed at that time. She came back a couple of days ago with increasing shortness of breath, but no chest pain or palpitation. Blood pressure in the Emergency Department was 222/118. She also has persistent bradycardia. Her heart rate dipping into the 30s, which was part of the reason that I was asked to evaluate her. She a long list of medications that also included carvedilol, which has been discontinued with some improvement in heart rate, but bradycardia is quite significant when she is sleeping. PHYSICAL EXAMINATION: GENERAL: This is a patient who is sitting in a chair. She is moderately obese. Her speech is slow, but it can be understood. Her complexion is fine. VITAL SIGNS: Pulse is irregular at 56 beats per minute. Blood pressure 140/57. NECK: JVP is normal. AJR is negative. There are no carotid bruits. CARDIOVASCULAR: There is no parasternal heave. Auscultation reveals grade 1-2/6 early peaking systolic murmur over the aortic area. EXTREMITIES: She has no edema at all in the lower extremities. RESPIRATORY: She is not tachypneic. Percussion note is normal. Auscultation reveals no obvious adventitious sounds. LABORATORY DATA: ECG showed sinus bradycardia and monitor has shown sinus bradycardia. At times, heart rate dropping into the 30s. She also has rare PVCs and PACs. She had an echocardiogram done within the last month or so, which showed an EF of 55%. IMPRESSION: 1. This patient has sinus bradycardia and is most likely due to use of beta ely which has been discontinued and I agree with that. I think if heart rate stays reasonable in the 60s and 70s after discontinuing the beta ely, this drug should be kept at [place] from the patient. 2. End-stage renal disease appears to be euvolemic at this stage. [place], [place] REPORT OF CONSULTATION NAME: LEI DRAPER UNIT #: [id number] ROOM: [facility] DOCTOR: MILY GARCÍA MD BIRTHDATE: [birth year] 3. Coronary artery disease, status post remote LAD stent. This is asymptomatic. I thank you for this consult. MILY GARCÍA MD CM:CONSTR:REPORT OF CONSULTATION 1743 03/11/18 0157 interface
--- NOTE | ~2018-03-08 | PR ---
[place], [place] PROGRESS NOTE NAME: LEI DRAPER UNIT #: [id number] ROOM: [facility]- DOCTOR: MANDA BAI MD BIRTHDATE: [birth year] DOS: SUBJECTIVE: The patient who has been admitted to the hospital with acute shortness of breath and difficulty breathing and was feeling very weak and she came to Emergency Department from where she was found to be having hypertensive with blood pressure 220/118 and with congestive heart failure with her proBNP very much elevated. The patient is a known case of end-stage renal failure and is on dialysis and is being followed by [facility]. Today, she is getting hemodialysis at present when I visited her in the clinic and in the unit and she is feeling fairly much better. She denies any chest pain and denies any short of breath. No nausea, no vomiting. The patient is a known case of coronary heart disease, diverticulosis, end-stage renal failure, hypertension, history of GI bleed in the past, history of myocardial infarction, hyperlipidemia, hypothyroidism, hypoxia and type 2 diabetes. Her test is showing some basal crepitation. OBJECTIVE: HEART: Regular. No murmur. VITAL SIGNS: Blood pressure 150/75, pulse 46, respirations 17, temperature 96. The patient is definitely feeling much better as compared to before. MANDA BAI MD CM:PNTRANS 9 [phone] MANDA BAI MD 03/09/182149 interface
--- NOTE | ~2018-03-08 | EKG ---
[place], [place] ELECTROCARDIOGRAM REPORT NAME: LEI DRAPER UNIT #: [id number] ROOM: [facility] DOCTOR: GAYATHRI DRAFT REPORT BIRTHDATE: [birth year] [facility] Test Date: 2018-03-08 Test Time: 06:21:16 Pat Name: LEI DRAPER Department: Room: [facility] Gender: F Local Delivery Truck Driver: : [id number] Requested By: HANSEL LOCO Order Number: [id number] Reading MD: Olman Haile MD Measurements Intervals [place] Rate: 89 P: 55 RI: 221 QRS: -33 QRSD: 158 T: 53 QT: 429 QTc: 523 Interpretive Statements Sinus rhythm Prolonged RI interval Probable left atrial enlargement Right bundle branch block Left ventricular hypertrophy Anterior Q waves, possibly due to LVH Baseline wander in lead(s) V3,V5,V6 Compared to ECG 02/23/2018 09:50:13 First degree AV block now present Electronically Signed On 03-09-2018 16:19:10 PST by Olman Haile MD CM:EKGRPT:ELECTROCARDIOGRAM REPORT 0621 1619 HANSEL SAGASTUME DRAFT REPORT HANSEL LOCO DO
--- NOTE | ~2018-03-08 | PR ---
[place], [place] PROGRESS NOTE NAME: LEI DRAPER UNIT #: [id number] ROOM: 411 DOCTOR: MILY GARCÍA MD BIRTHDATE: [birth year] DOS: 03/13/2018 SUBJECTIVE: She is in bed. She is smiling, very cheerful, feels well. She has not had any chest pain, breathing difficulty or any swelling in the legs. She usually uses a walker to get around. PHYSICAL EXAMINATION: GENERAL: A patient who is pleasant, alert, comfortable, not tachypneic. VITAL SIGNS: Pulse is regular at 72 beats per minute, blood pressure 150/50. NECK: JVP is normal. LUNGS: Clear to auscultation. EXTREMITIES: There is no edema in the lower extremities. IMPRESSION: 1. Bradycardia has pretty much resolved following discontinuation of carvedilol. 2. End-stage renal disease. She is in euvolemic state now. 3. Hypertension. Blood pressure a little bit on the high side, lisinopril dose has been increased to 5 mg b.i.d. PLAN: No other recommendations. MILY GARCÍA MD CM:PNTRANS 1141 1748 MILY GARCÍA MD 03/13/18 2019 interface
--- NOTE | ~2018-03-08 | PR ---
[place], [place] PROGRESS NOTE NAME: LEI DRAPER UNIT #: [id number] ROOM: [facility] DOCTOR: ANA ZELAYA MD BIRTHDATE: [birth year] DOS: 03/11/2018 SUBJECTIVE: The patient examined in the Intensive Care Unit. The patient was seen by Dr. Espinal yesterday after discontinuing the beta blockers, heart rate is much better, it is 79, blood pressure is significantly elevated today, this is 209/89. She has a history of has a history of LAD, remote stent. Denies obvious chest discomfort. The patient has history of previous anterior myocardial infarction and diabetic neuropathy. The patient was recently in the hospital also with volume overload and got dialyzed. The patient is seen by Nephrology and also blood pressure is still significantly elevated. Denies any chest discomfort. She is on carvedilol, which has been discontinued. REVIEW OF SYSTEMS: Somewhat limited, but no chest discomfort. Does have shortness of breath, no GI or issues. PHYSICAL EXAMINATION: VITAL SIGNS: Blood pressure is 200/100. NECK: Supple, no JVD. LUNGS: Diminished breath sounds. HEART: Heart sounds are regular. Grade 2/6 systolic ejection murmur. EXTREMITIES: No edema. NEUROLOGIC: Stable. LABORATORY DATA: Shows sinus bradycardia. Right now, her heart rate is significantly improved. Echocardiogram done last month showed a good ejection fraction. IMPRESSION: The patient with sinus bradycardia, which is significantly improved, chronic renal failure, end-stage renal disease, coronary artery disease, and hypertension. RECOMMENDATIONS: If the blood pressure is still elevated, start p.o., hydralazine 25 mg b.i.d. The patient is on lisinopril, but I would be extremely hesitant to monitor the creatinine very closely. The patient is already on 25 b.i.d. of hydralazine, I will increase it to 50 b.i.d., if the blood pressure is still elevated. Beta blockers has been discontinued. Continue the amlodipine and I will follow up. [place], [place] PROGRESS NOTE NAME: LEI DRAPER UNIT #: [id number] ROOM: [facility] DOCTOR: ANA ZELAYA MD BIRTHDATE: [birth year] ANA ZELAYA MD CM:PNTRANS 1 5 ANA ZELAYA MD 03/11/18755 interface
[2018-03-08 06:07] VITALS: BP 222/118
[2018-03-08 06:43] LABS: BASO # 0.1 10*3/uL (0.0-0.1); BASO % 0.8 % (0.0-1.0); EOS # 0.1 10*3/uL (0.0-0.4); EOS % 1.3 % (1.0-4.0); HEMATOCRIT 36.7 % (37.0-47.0); HEMOGLOBIN 11.5 g/dl (12.0-16.0); LYMPH # 1.2 10*3/uL (1.3-4.4); MEAN CELL VOLUME 93.1 fl (81.0-99.0); MEAN CORPUSCULAR HGB 29.2 pg (27.0-31.0); MEAN CORPUSCULAR HGB CONC 31.3 g/dl (33.0-37.0); MEAN PLATELET VOLUME 10.8 fl (9.6-12.3); MONO # 0.3 10*3/uL (0.1-1.0); MONO % 4.2 % (3.0-9.0); NEUT # 5.5 10*3/uL (2.3-7.9); NEUT % 76.4 % (47.0-73.0); PLATELET COUNT AUTOMATED 258 10*3/uL (130-400); RED BLOOD COUNT 3.94 10*6/uL (4.10-5.10); RED CELL DISTRI WIDTH 15.1 % (0-14.5); WHITE BLOOD COUNT 7.2 10*3/uL (4.8-10.8)
[2018-03-08 06:51] LABS: ACT PARTIAL THROMBO TIME 27.2 SECONDS (20.8-31.5)
[2018-03-08 07:00] LABS: ABG BASE EXCESS 3.8 mmol/L (-2.0-2.0); ABG HCO3 27.8 mmol/l (22-26); ABG O2 SATURATION 93.5 % (95-97); ARTERIAL BLOOD GAS PCO2 40.4 mmHg (35-45); ARTERIAL BLOOD GAS PH 7.449 (7.35-7.45)
[2018-03-08 07:01] LABS: ALBUMIN 3.7 gm/dl (3.1-4.5); CREATININE 4.08 mg/dL (0.55-1.02); POTASSIUM 5.3 mmol/L (3.5-5.1); TOTAL PROTEIN 8.3 gm/dL (6.4-8.2)
[2018-03-08 07:11] LABS: TROPONIN I 0.207 ng/ml (<0.045)
[2018-03-08 08:00] VITALS: BP 209/73
[2018-03-08 12:00] VITALS: BP 176/89
[2018-03-08 16:00] VITALS: BP 179/84
[2018-03-08 20:00] VITALS: BP 153/57
[2018-03-09] VITALS (9 sets, daily range): BP systolic 111–159; BP diastolic 51–80
[2018-03-10 00:08] VITALS: BP 150/63
[2018-03-10 04:00] VITALS: BP 170/80
[2018-03-10 04:08] LABS: BILIRUBIN NEGATIVE (NEGATIVE); BLOOD TRACE-LYSED (NEGATIVE); CLARITY SL CLOUDY (CLEAR); COLOR YELLOW (YELLOW); GLUCOSE NEGATIVE (NEGATIVE); KETONE NEGATIVE (NEGATIVE); LEUKO ESTERASE 1+ (NEGATIVE); NITRITE NEGATIVE (NEGATIVE); PH 7.5 (5.0-9.0); UROBILINOGEN 0.2 E.U./dl (0.2-1.0)
[2018-03-10 04:16] LABS: BACTERIA TRACE; EPITHELIAL CELLS 35-40; WBC 16-20 wbc/hpf (0-5)
[2018-03-10 05:46] LABS: ALBUMIN 3.4 gm/dl (3.1-4.5); CREATININE 6.22 mg/dL (0.55-1.02); PHOSPHOROUS 4.3 mg/dL (2.5-4.9); POTASSIUM 4.8 mmol/L (3.5-5.1); TOTAL PROTEIN 8.1 gm/dL (6.4-8.2)
[2018-03-10 06:27] LABS: HEMATOCRIT 36.3 % (37.0-47.0); HEMOGLOBIN 11.3 g/dl (12.0-16.0); MEAN CELL VOLUME 92.8 fl (81.0-99.0); MEAN CORPUSCULAR HGB 28.9 pg (27.0-31.0); MEAN CORPUSCULAR HGB CONC 31.1 g/dl (33.0-37.0); MEAN PLATELET VOLUME 11.4 fl (9.6-12.3); PLATELET COUNT AUTOMATED 243 10*3/uL (130-400); RED BLOOD COUNT 3.91 10*6/uL (4.10-5.10); WHITE BLOOD COUNT 8.8 10*3/uL (4.8-10.8)
[2018-03-10 07:27] LABS: BASOPHILS 2 % (0-1); PLATELET SUFFICIENCY NORMAL (NORMAL); TOTAL CELLS COUNTED 100 #CELLS
[2018-03-10 08:00] VITALS: BP 160/80
[2018-03-10 10:24] VITALS: BP 97/60
[2018-03-10 16:00] VITALS: BP 138/64
[2018-03-10 20:00] VITALS: BP 149/57
[2018-03-11] VITALS: BP 153/55
[2018-03-11 04:00] VITALS: BP 209/89
[2018-03-11 07:04] LABS: ALBUMIN 3.3 gm/dl (3.1-4.5); CREATININE 4.95 mg/dL (0.55-1.02); PHOSPHOROUS 3.5 mg/dL (2.5-4.9); POTASSIUM 4.5 mmol/L (3.5-5.1)
[2018-03-11 08:00] VITALS: BP 166/74
[2018-03-11 12:00] VITALS: BP 140/72
[2018-03-11 16:00] VITALS: BP 135/35
[2018-03-11 20:00] VITALS: BP 115/45
[2018-03-12] VITALS: BP 120/43
[2018-03-12 07:31] LABS: ALBUMIN 3.3 gm/dl (3.1-4.5); CREATININE 6.79 mg/dL (0.55-1.02); PHOSPHOROUS 4.7 mg/dL (2.5-4.9); POTASSIUM 4.9 mmol/L (3.5-5.1)
[2018-03-12 12:00] VITALS: BP 136/97
[2018-03-12 16:00] VITALS: BP 136/48
[2018-03-12 20:00] VITALS: BP 124/64
[2018-03-13] VITALS: BP 162/60
[2018-03-13 07:17] LABS: BASO # 0.1 10*3/uL (0.0-0.1); BASO % 0.5 % (0.0-1.0); EOS # 0.1 10*3/uL (0.0-0.4); EOS % 1.4 % (1.0-4.0); HEMATOCRIT 37.2 % (37.0-47.0); HEMOGLOBIN 11.6 g/dl (12.0-16.0); LYMPH # 2.3 10*3/uL (1.3-4.4); LYMPH % 24.6 % (27.0-41.0); MEAN CELL VOLUME 92.1 fl (81.0-99.0); MEAN CORPUSCULAR HGB 28.7 pg (27.0-31.0); MEAN CORPUSCULAR HGB CONC 31.2 g/dl (33.0-37.0); MEAN PLATELET VOLUME 10.9 fl (9.6-12.3); MONO # 0.7 10*3/uL (0.1-1.0); MONO % 7.8 % (3.0-9.0); NEUT # 6.1 10*3/uL (2.3-7.9); NEUT % 65.5 % (47.0-73.0); PLATELET COUNT AUTOMATED 275 10*3/uL (130-400); RED BLOOD COUNT 4.04 10*6/uL (4.10-5.10); WHITE BLOOD COUNT 9.4 10*3/uL (4.8-10.8)
[2018-03-13 07:41] LABS: CREATININE 4.9 mg/dL (0.55-1.02)
[2018-03-13 08:00] VITALS: BP 150/50
[2018-03-13 12:00] VITALS: BP 152/58
[2018-03-13] MEDS ORDERED: LISINOPRIL5 MG PO (13:40)
[2018-03-13 16:00] VITALS: BP 139/58
== END 2018-03-13 18:25 | disposition home or self-care (01) | DRG 291 ==
LOC: ED 06:06 → ICCU 07:00 → EDHOLD 07:00 → ICCU 07:18 → 4E 03-11 13:14
PROVIDERS: Family Medicine; Internal Medicine; Student in an Organized Health Care Education/Training Program
PROC: 5A1D70Z Performance of Urinary Filtration, Intermittent, Less than 6 Hours Per Day (ICD-10-PCS; principal; 2018-03-08)
PROC: 5A09357 Assistance with Respiratory Ventilation, Less than 24 Consecutive Hours, Continuous Positive Airway Pressure (ICD-10-PCS; principal; 2018-03-08)
PROC: 5A1D70Z Performance of Urinary Filtration, Intermittent, Less than 6 Hours Per Day (ICD-10-PCS; 2018-03-09)
PROC: 5A1D70Z Performance of Urinary Filtration, Intermittent, Less than 6 Hours Per Day (ICD-10-PCS; 2018-03-10)
PROC: 5A1D70Z Performance of Urinary Filtration, Intermittent, Less than 6 Hours Per Day (ICD-10-PCS; 2018-03-11)
PROC: 5A1D70Z Performance of Urinary Filtration, Intermittent, Less than 6 Hours Per Day (ICD-10-PCS; 2018-03-12)
DX: I13.2 Hypertensive heart and chronic kidney disease with heart failure and with stage 5 chronic kidney disease, or end stage renal disease (principal); I50.33 Acute on chronic diastolic (congestive) heart failure; J96.21 Acute and chronic respiratory failure with hypoxia; N18.6 End stage renal disease; I16.1 Hypertensive emergency; N25.81 Secondary hyperparathyroidism of renal origin; E87.1 Hypo-osmolality and hyponatremia; J98.11 Atelectasis; E03.9 Hypothyroidism, unspecified; D64.9 Anemia, unspecified; R79.89 Other specified abnormal findings of blood chemistry; E78.5 Hyperlipidemia, unspecified; G89.29 Other chronic pain; M54.9 Dorsalgia, unspecified; I25.10 Atherosclerotic heart disease of native coronary artery without angina pectoris; E66.9 Obesity, unspecified; K57.30 Diverticulosis of large intestine without perforation or abscess without bleeding; R00.1 Bradycardia, unspecified; E11.65 Type 2 diabetes mellitus with hyperglycemia; E11.40 Type 2 diabetes mellitus with diabetic neuropathy, unspecified; E11.22 Type 2 diabetes mellitus with diabetic chronic kidney disease; E87.5 Hyperkalemia; I95.3 Hypotension of hemodialysis; I27.20 Pulmonary hypertension, unspecified; Z99.2 Dependence on renal dialysis; Z79.82 Long term (current) use of aspirin; Z86.73 Personal history of transient ischemic attack (TIA), and cerebral infarction without residual deficits; Z88.5 Allergy status to narcotic agent; I25.2 Old myocardial infarction; Z68.27 Body mass index [BMI] 27.0-27.9, adult; Z90.49 Acquired absence of other specified parts of digestive tract; Z95.5 Presence of coronary angioplasty implant and graft; Z90.710 Acquired absence of both cervix and uterus; Z82.3 Family history of stroke; Z82.49 Family history of ischemic heart disease and other diseases of the circulatory system; Z84.1 Family history of disorders of kidney and ureter; Z79.899 Other long term (current) drug therapy

== ENCOUNTER 2018-04-24 23:53 | Inpatient (IN) | payer MEDICARE, OTHER ==
[~2018-04-24] VITALS: Ht 160 cm; Wt 74.5 kg
--- NOTE | ~2018-04-24 | O ---
[place], [place] OPERATIVE NOTE NAME: LEI DRAPER UNIT #: [id number] ROOM: 409 DOCTOR: FLORECITA MILLAN MD BIRTHDATE: [birth year] DOS: 04/25/2018 GASTROENDOSCOPIC REPORT INDICATIONS: This is an 88-year-old patient who has presented with chief complaint of GI bleed, undergoing investigation. Consultation has been dictated. PROCEDURE: Today's procedure part of investigation is panendoscopy and colonoscopy. PREMEDICATION: Propofol. SCOPE: Olympus forward-viewing gastroscope Q10 video. REPORT: After putting the patient in left lateral position and application of lubricant to the scope, the scope was introduced. Thereafter, under direct visualization, I advanced through the length of esophagus without difficulty into the gastric pouch into duodenal bulb. Mild gastritis seen. No evidence of bleeding in upper GI was noticed. The patient extubated, tolerated the procedure well. IMPRESSION: Gastritis. No biopsies, intentionally done. PLAN AND DISCUSSION: We are going to look for the source of bleeding lower GI tract today. INDICATION: The patient has presented with GI bleed, undergoing investigation. The patient with chronic renal failure, dialysis dependency. Status post multi-transfusion. PROCEDURE #2: Today's procedure part of investigation is colonoscopy. PREMEDICATION: Propofol. SCOPE: Olympus forward-viewing colonoscope 10L video. REPORT: After putting the patient in the left lateral position and application of lubricant to rectal pouch and digital examination, the scope was introduced. Thereafter, under direct visualization, advanced through the length of colon without difficulty. Difficulty arises when there is solid columns of stool, which appeared to be dark in character and most likely dried blood on the stool. Diverticulosis noticed. There is no active bleeding. The bleeding had occurred and already terminated. Therefore, the patient was extubated, tolerated the procedure well. IMPRESSION: Retained stool and dark blood in the colon, diverticulosis. PLAN AND DISCUSSION: We will hold all the blood thinners, aspirin. We are [place], [place] OPERATIVE NOTE NAME: LEI DRAPER UNIT #: [id number] ROOM: 409 DOCTOR: FLORECITA MILLAN MD BIRTHDATE: [birth year] going to feed her diabetic renal diet and we will watch the H and H and transfuse as may be necessary. Thank you very much indeed. FLORECITA MILLAN MD CM:JUNITOORD:OPERATIVE NOTE 1431 1455 FLORECITA MILLAN MD 04/25/18 1453 interface
--- NOTE | ~2018-04-24 | PR ---
[place], [place] PROGRESS NOTE NAME: LEI DRAPER UNIT #: [id number] ROOM: 409 DOCTOR: CHRISSY SIMON,CIARA Wang BIRTHDATE: [birth year] DOS: 04/26/2018 NEPHROLOGY PROGRESS NOTE SUBJECTIVE: The patient was seen on dialysis, tolerating well. Blood pressure was initially high, but does drop with ultrafiltration by weight. She is up several kilos from her prior dry weight and post-dialysis weight. She was given transfusion, which may have contributed and possibly some IV fluids, but at this point, she is taking in by mouth. I again mentioned to limit her fluids and salt intake. She does not add salt, but tries high salt intake and other foods. Regards to her GI bleeding, intervention per GI is noted. She is seen while undergoing dialysis and otherwise tolerating treatment well. Ultrafiltration rate will be decreased. Hemoglobin after transfusion seems to be fairly stable, but the patient is still reporting some bleeding through her rectum. Vital signs on dialysis were reviewed. Exam is unchanged and limited because she is undercovers on dialysis, cannot evaluate her back. ASSESSMENT AND PLAN: End-stage renal disease. Continue hemodialysis 3 times a week, perhaps a fourth may be needed for volume as need be like she was during her last hospitalizations in February and January, I believe. For now, plan for next treatment on Saturday and continue Saturday, Saturday and Saturday. GI bleeding and anemia, per primary and GI services, Epogen will be in the form of Mircera, which is given as outpatient dialysis. Transfuse for acute losses. Electrolytes are acceptable. Renal and diabetic diet reviewed with the patient and daughter yesterday. CIARA LOWE MD CM:PNTRANS 1200 2 CIARA LOWE MD 04/27/18100 interface
--- NOTE | ~2018-04-24 | PR ---
[place], [place] PROGRESS NOTE NAME: LEI DRAPER UNIT #: [id number] ROOM: 409 DOCTOR: CIARA LOWE MD BIRTHDATE: [birth year] DOS: 04/27/2018 NEPHROLOGY PROGRESS NOTE SUBJECTIVE: The patient was seen in her room. She had dialysis yesterday, tolerated it fairly well, but did have some intradialytic hypotension, did not have a bowel movement yesterday and was waiting to see if there was still some bleeding as she noted some bleeding still yesterday, so she was given some lactulose and is resting comfortably now. OBJECTIVE: VITAL SIGNS: 98.4, 72, 18, 146/72, 97% on room air. GENERAL: Awake, alert, comfortable, age appropriate, elderly woman lying in bed. Speech dysarthric chronically. NECK: No JVD or lymphadenopathy. LUNGS: Clear. CARDIOVASCULAR: Rate regular. No rub. ABDOMEN: Soft, nontender, nondistended. EXTREMITIES: Without cyanosis or clubbing. Trace to mild edema in dependent areas present. LABORATORIES AND DIAGNOSTICS: Hemoglobin 10.5 and stable. Her last transfusion was on 04/25/2018. White blood cell count 7.4, platelets 206. Sodium 138, potassium 3.9, chloride 100, bicarbonate 28, BUN 39, creatinine 5.24, glucose 107, calcium 8.4. ASSESSMENT AND PLAN: 1. End-stage renal disease. Continue hemodialysis 3 times a week, perhaps a fourth if needed for volume. 2. Volume and hypertension acceptable. Watch for hypotension on dialysis, but generally hypertensive when off of dialysis. 3. Anemia with gastrointestinal bleeding, continues to be a problem, Epogen in the form of Mircera, outpatient dialysis, transfuse for acute losses. 4. Electrolytes and acid base acceptable. 5. Diabetes, acceptable. [place], [place] PROGRESS NOTE NAME: LEI DRAPER UNIT #: [id number] ROOM: 409 DOCTOR: CIARA LOWE MD BIRTHDATE: [birth year] CIARA LOWE MD CM:PNTRANS 56 CIARA LOWE MD 04/28/1846 interface
--- NOTE | ~2018-04-24 | PR ---
[place], [place] PROGRESS NOTE NAME: LEI DRAPER UNIT #: [id number] ROOM: 409 DOCTOR: CIARA LOWE MD BIRTHDATE: [birth year] DOS: 04/28/2018 NEPHROLOGY PROGRESS NOTE TIME OF SERVICE: 10:20 a.m. SUBJECTIVE: The patient was seen in followup of end-stage renal disease. She is seen while undergoing dialysis, tolerating treatment fairly well. Blood pressures are fairly stable at this time. She does have some continued bleeding per her report with her bowel movements. No other acute events are reported. Hemoglobin is down again slightly from 10.5 to 9.1. Blood pressures as per her usual remain labile. Laboratories and diagnostics were otherwise reviewed and stable. Continue HD on Saturday, Saturday and Saturday schedule. CIARA LOWE MD CM:PNTRANS 1605 1901 CIARA LOWE MD 04/29/18 8959 interface
--- NOTE | ~2018-04-24 | PR ---
[place], [place] PROGRESS NOTE [id number] UN[facility] #: [id number] ROOM: 409 DOCTOR: MANDA BAI MD BIRTHDATE: [birth year] DOS: 04/29/2018 The patient has been admitted to the hospital with the acute exacerbation of chronic renal failure. She is on hemodialysis due to end-stage renal failure. She is also having history of hypertension; diabetes mellitus; gastrointestinal hemorrhage, unspecified; type 2 diabetes mellitus; hyperlipidemia; hypothyroidism; essential hypertension; diverticulosis. The patient has past history of colonoscopy done, had polyp removed, history of congestive heart failure, pulmonary hypertension, chronic back pain, coronary heart disease, end-stage renal failure, stent in the coronary artery and platelet dysfunction. The patient is feeling fairly good today. She denies any headache. There is no chest pain, no difficulty in breathing. No nausea, no vomiting. Her hemoglobin is 9.3, hematocrit 28.3. OBJECTIVE: VITAL SIGNS: Her blood pressure is 115/84, pulse 78, respirations 18, temperature normal. HEART: Somewhat regular. LUNGS: Clear. No creps or rhonchi. ABDOMEN: Soft. EXTREMITIES: Edema of leg is better. The patient is feeling much comfortable. MANDA BAI MD CM:PNTRANS 1341 1527 MANDA BAI MD 05/12/18 1006 interface
--- NOTE | ~2018-04-24 | CON ---
[place], [place] REPORT OF CONSULTATION NAME: LEI DRAPER UNIT #: [id number] ROOM: 409 DOCTOR: YANA SIMONFLORECITA BIRTHDATE: [birth year] DOS: 04/25/2018 GASTROENDOSCOPIC CONSULTATION REPORT HISTORY OF PRESENT ILLNESS: An 88-year-old patient who has presented with chief complaint of blood in stool and GI bleed and I have been consulted in this regard. The patient has been prepared for a limited colonoscopy evaluation if possible. The patient is known with a history of chronic renal failure, dialysis dependency. PAST MEDICAL HISTORY: Associated myocardial infarction, coronary artery disease, end-stage renal failure, diabetes mellitus, hypertension, GERD, history of diverticulosis, history of hyperlipidemia, hypothyroidism, obesity, hyperparathyroidism due to renal insufficiency, and protein-calorie malnutrition. PAST SURGICAL HISTORY: Hysterectomy, tonsillectomy, cholecystectomy, coronary artery stents. SOCIAL HISTORY: Nonsmoker, nonalcohol consumer. FAMILY HISTORY: Noncontributory, supportive family. ALLERGIES: CODEINE. MEDICATION LIST: Has been reviewed including aspirin that was noticed. REVIEW OF SYSTEMS: In general: HEENT: Denies double vision or blurred vision. RESPIRATORY: Denies acute shortness of breath. CARDIOVASCULAR: Denies acute chest pain. DIGESTIVE SYSTEM: GI bleed. No hematemesis, no hematochezia. PHYSICAL EXAMINATION: VITAL SIGNS: Stable. HEENT: Head is normocephalic, nontraumatic. Mouth and buccal mucosa benign. NECK: Supple. No thyromegaly, no cervical lymphadenopathy. CHEST: Symmetric anatomy, equal expansion. No wheeze, no rhonchi. HEART: Normal sinus rhythm. No gallop, no murmur. ABDOMEN: Soft. No hepato-organomegaly. Bowel sounds present. No pulsatile mass. EXTREMITIES: No cyanosis, no pedal edema. NEUROLOGIC: Alert, slow, and oriented. DIAGNOSTIC DATA: Labs reviewed, records reviewed. Her CBC at the time of admission was assessed with H and H of 9.2 and 29, white blood cell 8, and platelet 244. Lactic acid is 1.4. INR is 0.9. Comprehensive metabolic panel was reassessed, GFR of 6 with BUN and creatinine [address] scan of the abdomen and pelvis was reviewed, no definitive pathology intraabdominally, [id number]-[id number] bilateral renal atrophy, and details otherwise including [place], [place] REPORT OF CONSULTATION NAME: LEI DRAPER UNIT #: [id number] ROOM: 409 DOCTOR: YANA SIMON,FLORECITA BIRTHDATE: [birth year] diverticulosis. PLAN AND DISCUSSION: I am going to organize evaluation of the colon, possibly upper GI since she has been dropping her H and H. Other adjunctive diagnoses as outlined in the paragraph of past medical and surgical history. FLORECITA MILLAN MD CM:CONSTR:REPORT OF CONSULTATION 1336 04/25/18 1537 interface
[2018-04-24 23:56] VITALS: BP 168/66
[2018-04-25] VITALS (13 sets, daily range): BP systolic 93–177; BP diastolic 42–75
[2018-04-25 00:41] LABS: BASO % 0.5 % (0.0-1.0); EOS # 0.1 10*3/uL (0.0-0.4); EOS % 0.6 % (1.0-4.0); HEMATOCRIT 28.9 % (37.0-47.0); HEMOGLOBIN 9.2 g/dl (12.0-16.0); LYMPH % 24.5 % (27.0-41.0); MEAN CELL VOLUME 95.4 fl (81.0-99.0); MEAN CORPUSCULAR HGB 30.4 pg (27.0-31.0); MEAN CORPUSCULAR HGB CONC 31.8 g/dl (33.0-37.0); MEAN PLATELET VOLUME 10.5 fl (9.6-12.3); MONO # 0.5 10*3/uL (0.1-1.0); MONO % 6.6 % (3.0-9.0); NEUT # 5.4 10*3/uL (2.3-7.9); NEUT % 67.6 % (47.0-73.0); PLATELET COUNT AUTOMATED 224 10*3/uL (130-400); RED BLOOD COUNT 3.03 10*6/uL (4.10-5.10); RED CELL DISTRI WIDTH 16.3 % (0-14.5)
[2018-04-25 00:49] LABS: INTERNATIONAL NORM RATIO 0.9 (2.0-3.5)
[2018-04-25 00:55] LABS: ALBUMIN 3.4 gm/dl (3.1-4.5); CREATININE 7.14 mg/dL (0.55-1.02); POTASSIUM 4.6 mmol/L (3.5-5.1); TOTAL PROTEIN 7.5 gm/dL (6.4-8.2)
--- NOTE | 2018-04-25 04:45 | NUR ---
A 88, admitted to , under the services of TANYA Borges MD with a diagnosis of GI BLEED. Chief complaint is BLOOD IN STOOL WORSENING THROUGHOUT THE DAY. Patient arrived via bed from ER. Monitor applied. Initial assessment completed. Vital signs taken and recorded. TANYA BORGES MD notified of admission to the unit. Orders received. See assessment for past medical history, medications and allergies. Patient and/or family oriented to unit. [facility] visitation policy reviewed. Clothing/patient valuable form completed. ALLA SCHULTZ
[2018-04-25] MEDS ORDERED: LANTUS SOL100 UNIT/1 SQ (04:47)
[2018-04-25] MEDS ORDERED: ZESTRIL5 MG PO (04:49)
--- NOTE | 2018-04-25 04:50 | NUR ---
MED REC UP TO DATE PER DAUGHTER COREY DRAPER. PHONE NUMBERS FOR COREY: HOME: [phone] CELL: [phone]
--- NOTE | 2018-04-25 05:04 | NUR ---
NOTIFIED OF MED REC UP TO DATE
[2018-04-25 06:02] LABS: BASO % 0.4 % (0.0-1.0); EOS # 0.1 10*3/uL (0.0-0.4); EOS % 0.7 % (1.0-4.0); HEMATOCRIT 27.3 % (37.0-47.0); HEMOGLOBIN 8.8 g/dl (12.0-16.0); LYMPH # 1.8 10*3/uL (1.3-4.4); LYMPH % 24.5 % (27.0-41.0); MEAN CELL VOLUME 94.8 fl (81.0-99.0); MEAN CORPUSCULAR HGB 30.6 pg (27.0-31.0); MEAN CORPUSCULAR HGB CONC 32.2 g/dl (33.0-37.0); MEAN PLATELET VOLUME 10.1 fl (9.6-12.3); MONO # 0.6 10*3/uL (0.1-1.0); MONO % 7.7 % (3.0-9.0); NEUT # 4.8 10*3/uL (2.3-7.9); NEUT % 66.4 % (47.0-73.0); PLATELET COUNT AUTOMATED 215 10*3/uL (130-400); RED BLOOD COUNT 2.88 10*6/uL (4.10-5.10); RED CELL DISTRI WIDTH 16.3 % (0-14.5); WHITE BLOOD COUNT 7.3 10*3/uL (4.8-10.8)
[2018-04-25 06:30] LABS: INTERNATIONAL NORM RATIO 0.9 (2.0-3.5)
[2018-04-25 06:34] LABS: ALBUMIN 3.3 gm/dl (3.1-4.5); CREATININE 7.39 mg/dL (0.55-1.02); PHOSPHOROUS 3.1 mg/dL (2.5-4.9); POTASSIUM 4.8 mmol/L (3.5-5.1)
[2018-04-25 06:38] LABS: THYROID STIM HORMONE (HS) 2.19 uIU/ml (0.358-4.75); TOTAL PROTEIN 7.2 gm/dL (6.4-8.2)
--- NOTE | 2018-04-25 06:44 | NUR ---
CONSULT CALLED TO DR. MILLAN PER PHYSICIAN ORDER REGARDING GI BLEED ADMISSION DIAGNOSIS. NEW ORDERS RECEIVED TO PREP PT FOR EGD/COLONOSCOPY TODAY WITH FLEETS ENEMA FOLLOWED BY [facility]. MESSAGE SENT TO SURGERY PER POLICY. WILL NOTIFY PT. ALL ORDERS PLACED.
--- NOTE | 2018-04-25 06:45 | NUR ---
CONSULT CALLED TO DR. LOWE PER PHYSICIAN REQUEST. CONSULT GIVEN TO CASTING SUPERVISOR AND STATES THAT INFORMATION WILL BE GIVEN TO
[2018-04-25 08:06] LABS: VITAMIN D, 25-HYDROXY 29.2 ng/mL (30-100)
[2018-04-25 17:22] LABS: HEMATOCRIT 32.3 % (37.0-47.0); HEMOGLOBIN 10.6 g/dl (12.0-16.0)
--- NOTE | 2018-04-25 23:02 | NUR ---
ASSUMED CARE FOR THIS PT AT THIS TIME. CALL LIGHT IN REACH. NO C/O VOICED.
[2018-04-26] VITALS: BP 145/69
[2018-04-26 04:00] VITALS: BP 168/48
--- NOTE | 2018-04-26 06:05 | NUR ---
24 HR chart check completed.
[2018-04-26 06:31] LABS: HEMATOCRIT 31.1 % (37.0-47.0)
[2018-04-26 08:00] VITALS: BP 166/70; BP 170/70
--- NOTE | 2018-04-26 08:30 | NUR ---
PT OFF FLOOR FOR DIALYSIS
[2018-04-26 11:57] VITALS: BP 143/83
--- NOTE | 2018-04-26 12:40 | NUR ---
PT BACK TO [facility] FROM DIALYSIS
[2018-04-26 15:47] VITALS: BP 118/45
[2018-04-26 18:12] LABS: HEMATOCRIT 28.9 % (37.0-47.0); HEMOGLOBIN 9.7 g/dl (12.0-16.0)
--- NOTE | 2018-04-26 19:51 | NUR ---
Shift chart check completed.
[2018-04-26 20:00] VITALS: BP 168/48
--- NOTE | 2018-04-26 20:48 | NUR ---
PATIENT IS RESTING IN BED. DENIES ANY PAIN OR DISCOMFORT. PATIENT IS ALERT AND ORIENTED. PATIENT DENIES ANY SOB. LUNGS ARE DIMINISHED BUT CLEAR ON ROOM AIR. ABDOMEN SOFT NONTENDER. PATIENT STATES SHE IS STILL HAVING SOME SLIGHT BLOOD IN STOOL. DENIES ANY ABDOMINAL PAIN OR DISCOMFORT. BSX4. SNT. NO EDEMA. PATIENT HAS A BRIEF IN PLACE. LEFT CHEST TESSIO FOR DIALYSIS. WILL CONTINUE TO MONITOR.
--- NOTE | 2018-04-26 22:00 | NUR ---
PATIENT REFUSED HER INSULIN COVERAGE FOR THE 158 BGM. SHE STATES SHE IS GETTING [employer] AND DOES NOT WANT COVERAGE.
[2018-04-27] VITALS: BP 151/61
--- NOTE | 2018-04-27 00:15 | NUR ---
INTO SEE PT. PT ASSESSED AT THIS TIME. PT HAS NO COMPLAINTS.
--- NOTE | 2018-04-27 04:20 | NUR ---
INTO SEE PT. PT RESTING AT THIS TIME. WILL CONTINUE TO MONITOR
[2018-04-27 06:28] LABS: BASO % 0.4 % (0.0-1.0); EOS # 0.1 10*3/uL (0.0-0.4); EOS % 1.6 % (1.0-4.0); HEMATOCRIT 29.7 % (37.0-47.0); HEMOGLOBIN 9.7 g/dl (12.0-16.0); LYMPH # 1.8 10*3/uL (1.3-4.4); LYMPH % 24.3 % (27.0-41.0); MEAN CELL VOLUME 94.9 fl (81.0-99.0); MEAN CORPUSCULAR HGB CONC 32.7 g/dl (33.0-37.0); MEAN PLATELET VOLUME 10.5 fl (9.6-12.3); MONO # 0.5 10*3/uL (0.1-1.0); MONO % 6.7 % (3.0-9.0); NEUT % 66.7 % (47.0-73.0); PLATELET COUNT AUTOMATED 206 10*3/uL (130-400); RED BLOOD COUNT 3.13 10*6/uL (4.10-5.10); WHITE BLOOD COUNT 7.4 10*3/uL (4.8-10.8)
[2018-04-27 06:56] LABS: CREATININE 5.24 mg/dL (0.55-1.02); POTASSIUM 3.9 mmol/L (3.5-5.1)
[2018-04-27 08:00] VITALS: BP 182/81
[2018-04-27 08:17] VITALS: BP 142/50
--- NOTE | 2018-04-27 08:30 | NUR ---
PATIENT SITTING UP IN BED. RESPIRATIONS EASY, REGULAR ON RA. DENIES ANY SOB. DENIES ANY PAIN/DISCOMFORT AT THIS TIME. WILL CONTINUE TO MONITOR. VSS.
[2018-04-27 12:00] VITALS: BP 171/63
--- NOTE | 2018-04-27 12:42 | NUR ---
PATIENT'S FAMILY VISITING AT THIS TIME.
[2018-04-27 16:00] VITALS: BP 146/52
--- NOTE | 2018-04-27 16:30 | NUR ---
BSG 158. PATIENT REFUSES INSULIN PER S/S.
[2018-04-27 18:14] LABS: HEMOGLOBIN 10.5 g/dl (12.0-16.0)
--- NOTE | 2018-04-27 18:47 | NUR ---
IN TO SEE PATIENT.
--- NOTE | 2018-04-27 19:49 | NUR ---
24 HR chart check completed.
[2018-04-27 20:00] VITALS: BP 154/54
--- NOTE | 2018-04-27 20:00 | NUR ---
resting in bed with no acute distress noted. respirations easy. lungs diminished, clear. pulse ox 94% ra. abd soft with normoactive bowel sounds. call light within reach. no voiced complaints. bed alarm maintained for safety
--- NOTE | 2018-04-27 22:30 | NUR ---
bsg 125, declining lantus coverage despite education
[2018-04-28] VITALS: BP 151/53
--- NOTE | 2018-04-28 | NUR ---
sleeping. no distress noted. respirations easy. vss. call light within reach
--- NOTE | 2018-04-28 06:00 | NUR ---
SLEPT THROUGHOUT NIGHT WITH NO DISTRESS NOTED. RESPIRATIONS EASY. CALL LIGHT WITHIN REACH. NO VOICED COMPLAINTS THIS SHIFT. BED ALARM MAINTAINED FOR SAFETY
[2018-04-28 06:41] LABS: HEMATOCRIT 27.7 % (37.0-47.0); HEMOGLOBIN 9.1 g/dl (12.0-16.0)
[2018-04-28 08:00] VITALS: BP 170/76
--- NOTE | 2018-04-28 09:00 | NUR ---
Tablet Tester in to see patient. She is currently not in her room. Will follow up at a later time.
[2018-04-28 12:00] VITALS: BP 148/68
--- NOTE | 2018-04-28 14:00 | NUR ---
Supervisor Cold Rolling in to talk to patient. Patient states lives at home with her daughter. There are 0 steps in the home. Physician: Dr. Jonny Welsh [facility]: [facility] Home health services: [facility] twice a week for 2 hours each time Patient's level of ADLs: MINIMAL ASSIST Patient has working utilities: yes DME: walker, bedside commode Follow-up physician's appointment after d/c: she prefers to make her own follow up appt after discharge Does patient want to access PORTAL?: no Discharge plan discussed with patient. She lives at home with her daughter. She needs minimal assistance with her ADLs and ambulates with a walker. Discussed home health care services and she states she currently has [facility] twice a week for 2 hours each time. She denies any further needs at home. She is dialysis MWF, her chair time is 5am, and she uses [facility]. He daughter will transport on discharge. JOE HSU
[2018-04-28 16:00] VITALS: BP 150/71
[2018-04-28 17:48] LABS: HEMATOCRIT 28.1 % (37.0-47.0); HEMOGLOBIN 9.3 g/dl (12.0-16.0)
[2018-04-28 20:00] VITALS: BP 130/50
--- NOTE | 2018-04-28 20:00 | NUR ---
RESTING IN BED WITH EYES CLOSED. HEP LOCK INTACT TO LEFT HAND; SITE ASYMPTOMATIC. PT. VOICES NO C/O AT THIS TIME. CALL LIGHT WITHIN REACH.
--- NOTE | 2018-04-28 22:00 | NUR ---
BLOOD SUGAR 154; COVERAGE GIVEN PER EMAR.
[2018-04-29 02:30] VITALS: BP 158/69
--- NOTE | 2018-04-29 02:30 | NUR ---
BLOOD PRESSURE RECHECKED; SEE FLOW SHEET. PT. VOICES NO C/O AT THIS TIME. CALL LIGHT WITHIN REACH.
--- NOTE | 2018-04-29 06:00 | NUR ---
BLOOD SUGAR 107; NO COVERAGE REQUIRED.
[2018-04-29 08:00] VITALS: BP 160/80; BP 201/86
[2018-04-29 12:01] VITALS: BP 115/84
[2018-04-29 16:00] VITALS: BP 150/65
[2018-04-29 20:00] VITALS: BP 150/59
[2018-04-30] VITALS: BP 149/48
--- NOTE | 2018-04-30 06:25 | NUR ---
REPORT GIVEN TO TIMOTHY, DIALYSIS NURSE. STATED THAT SHE WOULD CALL FOR THE PATIENT SHORTLY
--- NOTE | 2018-04-30 08:00 | NUR ---
PATIENT NOT ASSESSED AT THIS TIME DUE TO BEING OFF THE FLOOR FOR DIALYSIS.
--- NOTE | 2018-04-30 09:00 | NUR ---
Faucets Assembler in to see patient. She is currently in dialysis. When medically stable she will be discharged to home with the resumption of her [facility] twice a week for 2 hours each time.
[2018-04-30 12:00] VITALS: BP 158/58
[2018-04-30 16:00] VITALS: BP 157/50
[2018-04-30 20:00] VITALS: BP 156/64
[2018-05-01] VITALS: BP 150/58; BP 165/61
--- NOTE | 2018-05-01 04:00 | NUR ---
24 HR chart check completed.
[2018-05-01 08:00] VITALS: BP 134/66; BP 146/66
--- NOTE | 2018-05-01 09:00 | NUR ---
Stamp Press Operator in to see patient. No new needs or request at this time. When medically stable she will be discharged to home with the resumption of her [facility] twice a week for 2 hours each time.
[2018-05-01 12:00] VITALS: BP 140/69
--- NOTE | 2018-05-01 13:40 | NUR ---
Discharge instructions reviewed with patient/family. Patient receptive and verbalizes understanding. Follow-up care arranged. Written instructions given to patient/family. OLLIE ULRICH
--- NOTE | 2018-05-01 13:46 | NUR ---
PT DISCHARGED AT THIS TIME WITH DAUGHTER TO HOME.
== END 2018-05-01 13:46 | disposition home or self-care (01) | DRG 377 ==
LOC: ED 23:53 → EDHOLD 04-25 04:23 → 4E 04-25 04:23
PROVIDERS: Emergency Medicine; Internal Medicine Nephrology; Student in an Organized Health Care Education/Training Program; ADMIT Internal Medicine
PROC: 0DJD8ZZ Inspection of Lower Intestinal Tract, Via Natural or Artificial Opening Endoscopic (ICD-10-PCS; principal; 2018-04-25)
PROC: 30233N1 Transfusion of Nonautologous Red Blood Cells into Peripheral Vein, Percutaneous Approach (ICD-10-PCS; principal; 2018-04-25)
PROC: 5A1D70Z Performance of Urinary Filtration, Intermittent, Less than 6 Hours Per Day (ICD-10-PCS; 2018-04-30)
DX: K29.71 Gastritis, unspecified, with bleeding (principal); N18.6 End stage renal disease; E44.1 Mild protein-calorie malnutrition; D62 Acute posthemorrhagic anemia; N17.9 Acute kidney failure, unspecified; I13.2 Hypertensive heart and chronic kidney disease with heart failure and with stage 5 chronic kidney disease, or end stage renal disease; N25.81 Secondary hyperparathyroidism of renal origin; I50.32 Chronic diastolic (congestive) heart failure; K57.31 Diverticulosis of large intestine without perforation or abscess with bleeding; D69.1 Qualitative platelet defects; G89.29 Other chronic pain; M54.9 Dorsalgia, unspecified; E11.22 Type 2 diabetes mellitus with diabetic chronic kidney disease; E78.5 Hyperlipidemia, unspecified; E03.9 Hypothyroidism, unspecified; E66.9 Obesity, unspecified; I27.22 Pulmonary hypertension due to left heart disease; D64.9 Anemia, unspecified; I95.3 Hypotension of hemodialysis; E11.65 Type 2 diabetes mellitus with hyperglycemia; I25.119 Atherosclerotic heart disease of native coronary artery with unspecified angina pectoris; K21.9 Gastro-esophageal reflux disease without esophagitis; Z88.6 Allergy status to analgesic agent; Z79.899 Other long term (current) drug therapy; Z79.4 Long term (current) use of insulin; Z79.82 Long term (current) use of aspirin; I25.2 Old myocardial infarction; Z86.73 Personal history of transient ischemic attack (TIA), and cerebral infarction without residual deficits; Z90.710 Acquired absence of both cervix and uterus; Z90.49 Acquired absence of other specified parts of digestive tract; Z95.5 Presence of coronary angioplasty implant and graft; Z82.3 Family history of stroke; Z82.49 Family history of ischemic heart disease and other diseases of the circulatory system; Z84.1 Family history of disorders of kidney and ureter; Z86.010 Personal history of colon polyps; Z68.29 Body mass index [BMI] 29.0-29.9, adult

== ENCOUNTER 2018-08-22 13:48 | Emergency (ER) | payer MEDICARE, OTHER ==
[~2018-08-22] VITALS: Ht 160 cm; Wt 70.8 kg
[~2018-08-22 13:48] MED LIST changes: +LANTUS SOL100 UNIT/1 SQ; +ZESTRIL5 MG PO
[2018-08-22 13:49] VITALS: BP 156/85
== END 2018-08-22 14:20 | disposition home or self-care (01) ==
LOC: ED 13:48
DX: T82.838A Hemorrhage due to vascular prosthetic devices, implants and grafts, initial encounter (principal); E11.22 Type 2 diabetes mellitus with diabetic chronic kidney disease; I13.2 Hypertensive heart and chronic kidney disease with heart failure and with stage 5 chronic kidney disease, or end stage renal disease; I50.9 Heart failure, unspecified; N18.6 End stage renal disease; Z99.2 Dependence on renal dialysis; I25.10 Atherosclerotic heart disease of native coronary artery without angina pectoris; G89.29 Other chronic pain; I25.2 Old myocardial infarction; E78.5 Hyperlipidemia, unspecified; E03.9 Hypothyroidism, unspecified; E66.9 Obesity, unspecified; Z88.5 Allergy status to narcotic agent; Z79.899 Other long term (current) drug therapy; Z79.4 Long term (current) use of insulin; Z79.82 Long term (current) use of aspirin; Z90.710 Acquired absence of both cervix and uterus; Z90.49 Acquired absence of other specified parts of digestive tract; Y83.8 Other surgical procedures as the cause of abnormal reaction of the patient, or of later complication, without mention of misadventure at the time of the procedure; Y92.89 Other specified places as the place of occurrence of the external cause

== ENCOUNTER 2018-12-05 03:12 | Inpatient (IN) | payer MEDICARE, OTHER ==
[2018-12-05] VITALS (12 sets, daily range): BP systolic 124–190; BP diastolic 61–103
[~2018-12-05] VITALS: Ht 160 cm; Wt 74.8 kg
--- NOTE | ~2018-12-05 | DS ---
[place], [place] DISCHARGE SUMMARY NAME: LEI DRAPER [facility] #: [id number] UNIT #: [id number] ROOM: [facility] DOCTOR: RAPHAEL QUINONEZ MD BIRTHDATE: [birth year] DOS: 12/08/2018 DISCHARGE DIAGNOSES: 1. Acute non-ST segment elevation [place]. The patient was taken for a heart catheterization by Dr. Espinal to [facility] in [place]. 2. Acute congestive heart failure, mixed systolic/diastolic type or chronic. 3. Type 2 diabetes mellitus. 4. Benign essential hypertension. 5. Mixed hyperlipidemia. 6. Hypothyroidism. 7. Coronary artery disease of the [place] vessels. 8. History of platelet dysfunction. 9. Coronary artery disease of the [place] vessels with stenting. 10. Mild protein-calorie malnutrition. 11. Normocytic anemia. 12. Chronic pain syndrome. 13. Diverticulosis of the colon. HOSPITAL COURSE: The patient presented to [facility] and was admitted for increased shortness of breath for several days. The patient was in acute congestive heart failure and was taken for hemodialysis and significant amount of fluid was removed with improvement in her shortness of breath. The patient was in acute over chronic mixed systolic/diastolic type congestive heart failure. She was on fluid volume overload with normal left ventricular ejection fraction, extra 2 kilograms of fluid was removed with the first dialysis and Nephrology followed the patient. End-stage kidney disease and kidney failure. The patient remains on hemodialysis. The patient's cardiac enzymes turn positive and she was kept on heparin and then finally taken for heart catheterization by her naval marine engineer, Dr. Espinal for elevated troponin I levels. The patient was given diagnoses of: 1. Non-ST segment elevation myocardial infarction. 2. Benign essential hypertension, treated, controlled and followed. 3. Hypothyroidism, replaced with Synthroid. 4. Mixed hyperlipidemia, followed and treated. 5. Type 2 diabetes mellitus. Blood sugars were followed and treated and she was kept on no concentrated sweet diet. DISCHARGE MEDICATIONS: Norvasc 5 mg a day, Synthroid 50 mcg a day, Apresoline 25 mg every 12 hours, Lasix 40 mg a day, Lipitor 80 mg a day, aspirin 81 mg a day, Prilosec 20 mg a day, Lantus insulin 20 units daily. [place], [place] DISCHARGE SUMMARY NAME: LEI DRAPER UNIT #: [id number] ROOM: [facility] DOCTOR: RAPHAEL QUINONEZ MD BIRTHDATE: [birth year] RAPHAEL QUINONEZ MD CM:RYAN [id number] RAPHAEL QUINONEZ MD 12/17/18 2210 interface
--- NOTE | ~2018-12-05 | PR ---
[place], [place] PROGRESS NOTE NAME: LEI DRAPER UNIT #: [id number] ROOM: [facility]- DOCTOR: CARLOS SIMON,CLARITZA Cross BIRTHDATE: [birth year] DOS: 12/06/2018 SUBJECTIVE: The patient was seen and examined. She is awake and alert. She denies chest pain, fevers or chills. Denies shortness of breath. She appeared comfortable, lying in bed. She was on room air and had no complaints to me. PHYSICAL EXAMINATION: VITAL SIGNS: Temperature 96.8, pulse 77, respiratory rate 16, blood pressure 165/77. HEENT: Shows no JVD. LUNGS: Diminished breath sounds. No wheeze. HEART: S1, S2. No rub. ABDOMEN: Soft, nontender. There is no organomegaly. EXTREMITIES: Had no edema. SKIN: Showed no rash. LABORATORY DATA: Hemoglobin 10.5, white count of 8.7, platelets 197. Sodium 135, potassium 3.9, BUN 20, creatinine 4.6, glucose 115, calcium 9.4. ASSESSMENT AND PLAN: 1. End-stage renal disease on hemodialysis Saturday, Saturday, Saturday. The patient will be planned for next dialysis on Saturday. It seems there are tentative plans for transfer. It seems for a heart catheterization. If this is early enough in the day, then she will require dialysis at the outpatient facility or if the cath is planned for later in the day, it should be considered to do dialysis first thing in the morning prior to her transfer. 2. Anemia. Hemoglobin and hematocrit are at target. We will give as needed, ESAs with dialysis. 3. Hypertension. Continue meds. 4. Non-ST elevation myocardial infarction. Management per Cardiology. Plan for heart catheterization noted. CLARITZA GONZALEZ MD CM:PNTRANS [id number] CLARITZA GONZALEZ MD 12/06/182234 interface
--- NOTE | ~2018-12-05 | CON ---
[place], [place] REPORT OF CONSULTATION NAME: LEI DRAPER UNIT #: [id number] ROOM: [facility] DOCTOR: MILY GARCÍA MD BIRTHDATE: [birth year] DOS: 12/05/2018 HISTORY OF PRESENT ILLNESS: This is an 88-year-old -[place]ag[place] woman with a history of longstanding essential hypertension and coronary artery disease; in 2008, she had a stent deployed in the left anterior descending artery following an acute anterior wall myocardial infarction. She had an echocardiogram done in February of last year when she had an EF of 55% and left ventricular hypertrophy. She has type 2 diabetes mellitus, hyperlipidemia, GERD, diabetic neuropathy and chronic anemia. She had a stroke in the remote past that has affected her speech and ability to ambulate, although she does walk around to some extent at home according to the daughter whom I talked to. She has end-stage renal disease and has been dialyzing for a few years now. She has hypothyroidism, secondary hyperparathyroidism and has had cholecystectomy in the remote past as well as tonsillectomy, hysterectomy and colon polypectomy. She has never smoked cigarettes and does not use alcoholic beverages. She was admitted to the hospital yesterday because she had anterior chest heaviness and tightness along with shortness of breath that seemed to come rather acutely. The severe tightness lasted for quite some time, but she cannot give me the exact time. She had dialysis following which her breathing got better. She did not have any palpitations nor does she have any dizziness or swelling of the lower extremities. No fever or chills. HOME MEDICATIONS: Include amlodipine 5 mg daily, aspirin 81 daily, atorvastatin 80 daily, calcium carbonate, vitamin D3 daily, furosemide 40 mg daily, hydralazine 25 mg b.i.d., levothyroxine 50 mcg daily, lisinopril 5 mg daily, omeprazole 20 mg daily and also insulin glargine 20 units at night. PHYSICAL EXAMINATION: GENERAL: Reveals a patient who is alert, oriented. Her speech is not normal and this has been abnormal for many years now. She is not diaphoretic and is not in any distress. She is not tachypneic. VITAL SIGNS: Temperature is normal at 97.7 degrees, pulse is 76 and regular, blood pressure 144/66, blood pressure has been mildly elevated. NECK: No thyromegaly. JVP is normal. AJR is almost negative. No bruit in the neck. HEART: There is no cardiomegaly. Auscultation revealed grade 1/6 early systolic murmur over the aortic area. EXTREMITIES: She has palpable pedal pulses and no edema in the lower extremities. RESPIRATORY: She had quite a few crackles on the left side. Right lung shows better aeration and a few crackles. ABDOMEN: Supple, nontender. No organomegaly is present. Bowel sounds are normal. LABORATORY DATA: ECGs have shown normal sinus rhythm with left atrial abnormality, first-degree heart block and complete right bundle branch block with moderate left axis deviation. Troponin I level was 1.18 on admission and has risen to 5.8 now. She has [place], [place] REPORT OF CONSULTATION NAME: LEI DRAPER UNIT #: [id number] ROOM: [facility] DOCTOR: MILY GARCÍA MD BIRTHDATE: [birth year] chronically elevated troponin level, but usually level has been 0.3. I reviewed the chest x-rays, which demonstrated normal heart size and mild pulmonary congestion. She dialyzed today with removal of 2 kilograms of fluid. IMPRESSION: 1. This patient has had an acute myocardial infarction, most likely non-ST elevation acute myocardial infarction. She has coronary artery disease and the left anterior descending was stented 10 years ago. 2. She has uncontrolled hypertension, medications are being manipulated to control this better. 3. End-stage renal disease, with only mild volume overload now after hemodialysis. 4. Moderate anemia is present; this is chronic. PLAN: She should be treated with IV heparin for the time being and nitro paste can also be used to control blood pressure and also for NSTEMI. I discussed the need for a diagnostic heart catheterization and selective coronary angiogram and also possible percutaneous coronary intervention. She understands the risks and the benefits, which I pointed out to her and she is agreeable. I will have her transferred to [facility] on December 08. I thank you for this consult. MILY GARCÍA MD CM:CONSTR:REPORT OF CONSULTATION 1650 12/06/18 0152 interface
--- NOTE | ~2018-12-05 | EKG ---
[place], [place] ELECTROCARDIOGRAM REPORT NAME: LEI DRAPER UNIT #: [id number] ROOM: [facility] DOCTOR: GAYATHRI DRAFT REPORT BIRTHDATE: [birth year] [facility] Test Date: 2018-12-05 Test Time: 03:16:38 Pat Name: LEI DRAPER Department: Room: [facility] Gender: F Dip Painter: : 1930 Requested By: KULWANT SOMMER Order Number: [id number] Reading MD: Andrew Espinal MD Measurements Intervals [place] Rate: 114 P: 262 CT: 189 QRS: -61 QRSD: 166 T: 58 QT: 435 QTc: 600 Interpretive Statements Sinus or ectopic atrial tachycardia RBBB and LAFB Probable left ventricular hypertrophy Anterior Q waves, possibly due to LVH Compared to ECG 03/08/2018 06:21:16 Left anterior fascicular block now present Sinus rhythm no longer present First degree AV block no longer present Electronically Signed On 12-12-2018 14:11:19 PDT by Andrew Espinal MD CM:EKGRPT:ELECTROCARDIOGRAM REPORT 0316 1411 KULWANT SOMMER MD EPIPHANY DRAFT REPORT KULWANT SOMMER MD
--- NOTE | ~2018-12-05 | PR ---
[place], [place] PROGRESS NOTE NAME: LEI DRAPER UNIT #: [id number] ROOM: [facility] DOCTOR: RAPHAEL QUINONEZ MD BIRTHDATE: [birth year] DOS: 12/07/2018 SUBJECTIVE: The patient is feeling well, just complaining of cough and requesting a cough medicine. No complaints of chest pain, no shortness of breath. PHYSICAL EXAMINATION: VITAL SIGNS: Blood pressure 155/77, heart rate of 84 beats per minute, breathing 16-24 times per minute, temperature 98 degrees Fahrenheit. GENERAL: Generalized weakness. HEENT AND NECK: Exam within normal limits. CARDIOVASCULAR SYSTEM: Heart rate is regular in rate and rhythm. S1 and S2 normally audible. LUNGS: Clear to auscultation. ABDOMEN: Soft, nontender. No obvious organomegaly. Bowel sounds are present. EXTREMITIES: Without significant cyanosis or edema. IMPRESSION AND PLAN: 1. The patient with acute non-ST segment elevation myocardial infarction. The patient is being taken for a heart catheterization by Dr. Espinal, her convenience store clerk. Troponin levels peaked at 7.3. 2. Acute congestive heart failure, mixed systolic/diastolic type with fluid volume overload, improved after hemodialysis and extra fluid was removed. She is breathing much better. 3. Type 2 diabetes mellitus. Blood sugars are being treated with no concentrated sweet diet and appeared to be well controlled. 4. Cough secondary to bronchitis, is being treated with Mucinex DM. 5. Benign essential hypertension. Blood pressure is being monitored and treated. The patient remains on amlodipine, lisinopril and hydralazine. 6. Mixed hyperlipidemia, diet controlled. 7. Hypothyroidism, replaced with Synthroid. 8. The patient has history of coronary artery disease of the [place] vessels with present non-ST segment elevation acute myocardial infarction. The patient remains on IV heparin, anticoagulated. [place], [place] PROGRESS NOTE NAME: LEI DRAPER UNIT #: [id number] ROOM: [facility] DOCTOR: RAPHAEL QUINONEZ MD BIRTHDATE: [birth year] RAPHAEL QUINONEZ MD CM:PNTRANS 1351 1721 RAPHAEL QUINONEZ MD 12/07/18 1720 interface
--- NOTE | ~2018-12-05 | WRIGHTHP ---
[place], [place] PATIENT HISTORY AND PHYSICAL EXAM NAME: LEI DRAPER [facility] #: [id number] UNIT #: [id number] ROOM: [facility] DOCTOR: RAPHAEL QUINONEZ MD BIRTHDATE: [birth year] DOS: 12/05/2018 HISTORY OF PRESENT ILLNESS: The patient is an 88-year-old female with a past medical history of: 1. End-stage kidney disease, the patient on hemodialysis. 2. History of gastrointestinal bleed. 3. Type 2 diabetes mellitus. 4. Mixed hyperlipidemia. 5. Hypothyroidism. 6. Benign essential hypertension. 7. Diverticulosis of the colon. 8. History of chronic congestive heart failure. 9. Chronic pain syndrome. 10. Mild protein calorie malnutrition. 11. Normocytic anemia. 12. Coronary artery disease and stenting of the [place] vessels. 13. Platelet dysfunction. The patient presented to the Emergency Department with increasing shortness of breath for several days. The patient on hemodialysis. No complaints of swelling in her legs, but she does have chest congestion and cough. The patient showed mild interstitial edema at the lung bases and bronchitis. The patient did not have any chest pain, dizziness, fainting episodes or any other issues. REVIEW OF SYSTEMS: RESPIRATORY: Increasing shortness of breath. LUNGS: Chest congestion and cough. GASTROINTESTINAL: No nausea, vomiting, diarrhea, or constipation. CARDIOVASCULAR: No chest pains or palpitations. FAMILY HISTORY: Noncontributory. HOME MEDICATIONS: Lisinopril, furosemide, aspirin, amlodipine, omeprazole, levothyroxine, insulin, hydralazine, Lipitor. ALLERGIES: Known allergies to CODEINE. PHYSICAL EXAMINATION: GENERAL: Alert, oriented x 3, in no visible distress. Generalized weakness. VITAL SIGNS: Blood pressure 148/72, heart rate 81 beats per minute, breathing 28 times per minute, temperature 98.5 degrees Fahrenheit. HEENT AND NECK: Extraocular movements are intact. Sclerae are anicteric. Oral mucosa is moist and clean. No obvious facial weakness. Neck is supple without any lymphadenopathy. No thyromegaly. No JVD. No carotid arterial bruits. LUNGS: Clear to auscultation. No wheezing. No rhonchi. CARDIOVASCULAR SYSTEM: Heart rate is regular in rate and rhythm. S1 and S2 normally audible. No significant murmur or any other abnormal cardiac sounds. ABDOMEN: Soft, nontender. No obvious organomegaly. Bowel sounds are present. No obvious herniation. EXTREMITIES: Without significant cyanosis or edema. Warm to touch. [place], [place] PATIENT HISTORY AND PHYSICAL EXAM [id number] UNIT #: [id number] ROOM: [facility] DOCTOR: RAPHAEL QUINONEZ MD BIRTHDATE: [birth year] CENTRAL NERVOUS SYSTEM: Alert and oriented x 3. Cranial nerves II-XII are intact. Speech is normal. The patient is able to move all extremities. Normal muscle strength. Deep tendon reflexes are equal on both sides. Plantars were downgoing. LABORATORY DATA: Troponin level elevated to 1.8 and increasing. Chest x-ray showing congestive heart failure. IMPRESSION: 1. The patient with acute fluid volume overload related congestive heart failure with normal left ventricular ejection fraction, undergoing hemodialysis presently and 2 extra kilograms of fluid is being removed. 2. End-stage kidney disease. The patient remains on hemodialysis. 3. Type 2 diabetes mellitus. Blood sugars to be monitored and treated. The patient to be kept on no concentrated sweet diet. 4. Mixed hyperlipidemia, to be followed and treated. 5. Hypothyroidism, replaced with Synthroid. 6. Benign essential hypertension, being treated and controlled. Blood pressures to be monitored. Blood pressures were elevated when she presented to the Emergency Department. 7. History of coronary artery disease of the [place] vessels with elevated troponin I levels, apparently secondary to kidney failure. Her dev manager, Dr. Espinal has been consulted for evaluation and treatment. The patient has been chest pain free. RAPHAEL QUINONEZ MD CM:HISPHYS:PATIENT HISTORY AND PHYSICAL EXAMINATION 1030 1052 RAPHAEL QUINONEZ MD 12/05/18 1051 interface
--- NOTE | ~2018-12-05 | PR ---
[place], [place] PROGRESS NOTE NAME: LEI DRAPER UNIT #: [id number] ROOM: [facility] DOCTOR: RAPHAEL QUINONEZ MD BIRTHDATE: [birth year] DOS: 12/06/2018 OBJECTIVE: GENERAL APPEARANCE: The patient is alert and oriented x 3, in no visible distress. Generalized weakness. VITAL SIGNS: Blood pressure 151/79, heart rate 72 beats per minute, breathing 16 times per minute, temperature 98 degrees Fahrenheit. HEENT AND NECK: Exam within normal limits. CARDIOVASCULAR SYSTEM: Heart rate is regular in rate and rhythm. S1 and S2 normally audible. LUNGS: Clear to auscultation. ABDOMEN: Soft, nontender. No obvious organomegaly. Bowel sounds are present. EXTREMITIES: Without significant cyanosis or edema. IMPRESSION: 1. The patient with acute fluid volume overload and acute congestive heart failure, mixed systolic/diastolic type with normal left ventricular ejection fraction. The patient underwent hemodialysis with removal of extra 2 kilograms of fluid and she is starting to breathe better. I will repeat a chest x-ray in the morning. 2. End-stage kidney disease. The patient remains on hemodialysis. 3. Type 2 diabetes mellitus. Blood sugars are being monitored, treated and she is on no concentrated sweet diet. 4. History of coronary artery disease of the [place] vessels with elevated troponin levels. Considered to have an acute non-ST elevation myocardial infarction. The patient is recommended a heart catheterization by her activities volunteer. She discussed the situation with her and started her on IV heparin. No complaints of any chest pains. The patient's troponin levels peaked at 7.3. 5. Benign essential hypertension. Blood pressure will be monitored and treated. The patient is on hydralazine, amlodipine and lisinopril. 6. Mixed hyperlipidemia to be followed and treated. 7. Hypothyroidism, replaced with Synthroid. RAPHAEL QUINONEZ MD CM:PNTRANS 15 RAPHAEL QUINONEZ MD 12/07/18 0058 interface
--- NOTE | ~2018-12-05 | PR ---
[place], [place] PROGRESS NOTE NAME: LEI DRAPER UNIT #: [id number] ROOM: [facility]- DOCTOR: CARLOS SIMON,CLARITZA Cross BIRTHDATE: [birth year] DOS: 12/07/2018 NEPHROLOGY FOLLOWUP NOTE SUBJECTIVE: The patient was seen and examined. She is awake, alert. She denies shortness of breath, fevers, chills, night sweats. She has a nasal cannula, feels comfortable. PHYSICAL EXAMINATION: VITAL SIGNS: Temperature 98, pulse 84, respiratory rate 16, blood pressure 165/77. HEENT: Shows no JVD. LUNGS: Diminished breath sounds. No wheeze. HEART: S1, S2. No rub. ABDOMEN: Soft, nontender. EXTREMITIES: Showed no edema. SKIN: Showed no rash. LABORATORY DATA: From 12/06, BUN 20, creatinine 4.6, potassium 3.9, hemoglobin 10.5. ASSESSMENT AND PLAN: 1. End-stage renal disease on hemodialysis Saturday, Saturday, Saturday. The patient will have dialysis tomorrow. We will need to time dialysis appropriately. If her transfer to the outside facility for heart catheterization will not be until later in the day, her dialysis should be completed early prior to transfer. If the catheterization is planned early, then ideally the dialysis session should be following the catheterization. 2. Anemia. As needed, ESAs with dialysis 3. Hypertension. Continue medications. 4. Non-ST elevation myocardial infarction. There are plans for heart catheterization tomorrow. CLARITZA GONZALEZ MD CM:PNTRANS 1349 1709 CLARITZA GONZALEZ MD 12/07/18 1709 interface
--- NOTE | ~2018-12-05 | EKG ---
[place], [place] ELECTROCARDIOGRAM REPORT NAME: LEI DRAPRE UNIT #: [id number] ROOM: [facility] DOCTOR: JAMISONANY DRAFT REPORT BIRTHDATE: [birth year] [facility] Test Date: 2018-12-05 Test Time: 09:56:02 Pat Name: LEI DRAPER Department: Room: [facility] Gender: F Occupational Therapist'S Assistant: Claudette Valdivia : 1930 Requested By: KULWANT SOMMER Order Number: [id number] Reading MD: Andrew Espinal MD Measurements Intervals [place] Rate: 76 P: 63 MD: 232 QRS: -38 QRSD: 171 T: 46 QT: 493 QTc: 555 Interpretive Statements Sinus arrhythmia Prolonged MD interval Left atrial enlargement Right bundle branch block Left ventricular hypertrophy Compared to ECG 03/08/2018 06:21:16 Sinus rhythm no longer present Q waves no longer present Electronically Signed On 12-12-2018 14:12:33 PDT by Andrew Espinal MD CM:EKGRPT:ELECTROCARDIOGRAM REPORT [id number] 1412 KULWANT SOMMER MD EPIPHANY DRAFT REPORT KULWANT SOMMER MD
--- NOTE | ~2018-12-05 | EKG ---
[place], [place] ELECTROCARDIOGRAM REPORT NAME: LEI DRAPER UNIT #: [id number] ROOM: [facility] DOCTOR: GAYATHRI DRAFT REPORT BIRTHDATE: [birth year] [facility] Test Date: 2018-12-05 Test Time: 06:38:39 Pat Name: LEI DRAPER Department: Room: [facility] Gender: F Conference Manager: Claudette Valdivia : 1930 Requested By: KULWANT SOMMER Order Number: [id number] Reading MD: Andrew Espinal MD Measurements Intervals [place] Rate: 81 P: 52 [place]: 226 QRS: -63 QRSD: 171 T: 63 QT: 486 QTc: 565 Interpretive Statements Sinus rhythm First degree block Left atrial enlargement Right bundle branch block Left ventricular hypertrophy Electronically Signed On 12-12-2018 14:12:22 PDT by Andrew Espinal MD CM:EKGRPT:ELECTROCARDIOGRAM REPORT [id number] KULWANT SOMMER MD EPIPHANY DRAFT REPORT KULWANT SOMMER MD
[2018-12-05 03:34] LABS: BASO # 0.1 10*3/uL (0.0-0.1); BASO % 0.5 % (0.0-1.0); EOS # 0.1 10*3/uL (0.0-0.4); HEMATOCRIT 35.1 % (37.0-47.0); HEMOGLOBIN 11.1 g/dl (12.0-16.0); LYMPH # 2.6 10*3/uL (1.3-4.4); LYMPH % 25.7 % (27.0-41.0); MEAN CELL VOLUME 95.1 fl (81.0-99.0); MEAN CORPUSCULAR HGB 30.1 pg (27.0-31.0); MEAN CORPUSCULAR HGB CONC 31.6 g/dl (33.0-37.0); MEAN PLATELET VOLUME 10.8 fl (9.6-12.3); MONO # 0.6 10*3/uL (0.1-1.0); MONO % 5.9 % (3.0-9.0); NEUT # 6.8 10*3/uL (2.3-7.9); NEUT % 66.7 % (47.0-73.0); PLATELET COUNT AUTOMATED 273 10*3/uL (130-400); RED BLOOD COUNT 3.69 10*6/uL (4.10-5.10); RED CELL DISTRI WIDTH 14.5 % (0-14.5); WHITE BLOOD COUNT 10.1 10*3/uL (4.8-10.8)
[2018-12-05 03:46] LABS: ACT PARTIAL THROMBO TIME 26.6 SECONDS (20.0-32.1); INTERNATIONAL NORM RATIO 0.9 (2.0-3.5)
[2018-12-05 03:52] LABS: ALBUMIN 3.7 gm/dl (3.1-4.5); CREATININE 7.14 mg/dL (0.55-1.02); POTASSIUM 3.9 mmol/L (3.5-5.1); TOTAL PROTEIN 8.2 gm/dL (6.4-8.2)
[2018-12-05 03:54] LABS: TROPONIN I 0.442 ng/ml (<0.045)
[2018-12-05] MEDS ORDERED: OYSTER SHELL 51 EACH PO (10:39)
[2018-12-06] VITALS: BP 130/65
[2018-12-06 04:00] VITALS: BP 147/67
[2018-12-06 04:50] LABS: BASO # 0.1 10*3/uL (0.0-0.1); BASO % 0.8 % (0.0-1.0); EOS # 0.2 10*3/uL (0.0-0.4); EOS % 2.8 % (1.0-4.0); HEMATOCRIT 33.1 % (37.0-47.0); HEMOGLOBIN 10.5 g/dl (12.0-16.0); LYMPH % 23.2 % (27.0-41.0); MEAN CORPUSCULAR HGB 29.8 pg (27.0-31.0); MEAN CORPUSCULAR HGB CONC 31.7 g/dl (33.0-37.0); MONO # 0.5 10*3/uL (0.1-1.0); MONO % 5.8 % (3.0-9.0); NEUT # 5.8 10*3/uL (2.3-7.9); NEUT % 67.2 % (47.0-73.0); PLATELET COUNT AUTOMATED 197 10*3/uL (130-400); RED BLOOD COUNT 3.52 10*6/uL (4.10-5.10); RED CELL DISTRI WIDTH 14.5 % (0-14.5); WHITE BLOOD COUNT 8.7 10*3/uL (4.8-10.8)
[2018-12-06 05:08] LABS: CREATININE 4.64 mg/dL (0.55-1.02); POTASSIUM 3.9 mmol/L (3.5-5.1)
[2018-12-06 08:00] VITALS: BP 148/59
[2018-12-06 12:00] VITALS: BP 165/77
[2018-12-06 16:00] VITALS: BP 151/79
[2018-12-06 20:00] VITALS: BP 157/69
[2018-12-07] VITALS: BP 158/81
[2018-12-07 04:00] VITALS: BP 141/58
[2018-12-07 08:00] VITALS: BP 152/76
[2018-12-07 12:00] VITALS: BP 155/77
[2018-12-07 16:00] VITALS: BP 151/67
[2018-12-07 20:00] VITALS: BP 175/88
[2018-12-08] VITALS: BP 166/87
[2018-12-08 04:00] VITALS: BP 162/80
[2018-12-13] MEDS ORDERED: BRILINTA90 M1 PO (11:37)
[2018-12-13] MEDS ORDERED: NITROGLYCERIN0.4 MG SL (11:38)
[2018-12-16] MEDS ORDERED: ZITHROMAX250 MG PO (12:44)
== END 2018-12-08 00:53 | disposition short-term general hospital (02) | DRG 280 ==
LOC: ED 03:12 → ICCU 05:56 → EDHOLD 05:56 → ICCU 06:22
PROVIDERS: Emergency Medicine Emergency Medical Services; ADMIT Internal Medicine
PROC: 5A1D70Z Performance of Urinary Filtration, Intermittent, Less than 6 Hours Per Day (ICD-10-PCS; principal; 2018-12-05)
PROC: 5A1D70Z Performance of Urinary Filtration, Intermittent, Less than 6 Hours Per Day (ICD-10-PCS; 2018-12-08)
DX: I21.4 Non-ST elevation (NSTEMI) myocardial infarction (principal); I50.41 Acute combined systolic (congestive) and diastolic (congestive) heart failure; N18.6 End stage renal disease; I13.2 Hypertensive heart and chronic kidney disease with heart failure and with stage 5 chronic kidney disease, or end stage renal disease; N25.81 Secondary hyperparathyroidism of renal origin; E03.9 Hypothyroidism, unspecified; E78.2 Mixed hyperlipidemia; M54.9 Dorsalgia, unspecified; E11.22 Type 2 diabetes mellitus with diabetic chronic kidney disease; E66.9 Obesity, unspecified; I27.20 Pulmonary hypertension, unspecified; K21.9 Gastro-esophageal reflux disease without esophagitis; E11.40 Type 2 diabetes mellitus with diabetic neuropathy, unspecified; I25.10 Atherosclerotic heart disease of native coronary artery without angina pectoris; G89.4 Chronic pain syndrome; J40 Bronchitis, not specified as acute or chronic; D64.9 Anemia, unspecified; K57.30 Diverticulosis of large intestine without perforation or abscess without bleeding; Z99.2 Dependence on renal dialysis; Z88.5 Allergy status to narcotic agent; I25.2 Old myocardial infarction; Z86.73 Personal history of transient ischemic attack (TIA), and cerebral infarction without residual deficits; Z90.49 Acquired absence of other specified parts of digestive tract; Z95.5 Presence of coronary angioplasty implant and graft; Z90.710 Acquired absence of both cervix and uterus; Z84.1 Family history of disorders of kidney and ureter; Z82.3 Family history of stroke; Z82.49 Family history of ischemic heart disease and other diseases of the circulatory system; Z79.899 Other long term (current) drug therapy; Z79.82 Long term (current) use of aspirin; Z68.29 Body mass index [BMI] 29.0-29.9, adult

== ENCOUNTER 2018-12-18 04:43 | Inpatient (IN) | payer MEDICARE, OTHER ==
[2018-12-18] VITALS (16 sets, daily range): BP systolic 107–190; BP diastolic 62–105
[~2018-12-18] VITALS: Ht 160 cm; Wt 69.4 kg
--- NOTE | ~2018-12-18 | PR ---
[place], [place] PROGRESS NOTE NAME: LEI DRAPER UNIT #: [id number] ROOM: 412 DOCTOR: MILY GARCÍA MD BIRTHDATE: [birth year] DOS: SUBJECTIVE: She had some indigestion earlier this morning and the nurse reported this to Dr. Welsh as chest discomfort. She is sure that she did not have any chest pain or pressure. She had been walking around. No breathing difficulty, no orthopnea last night. She has been dialyzing. GENERAL: She looks well. VITAL SIGNS: Pulses are regular at 66. JVP is normal and systolic blood pressure is 155. LUNGS: Clear. EXTREMITIES: No edema in lower extremities. IMPRESSION: 1. This patient had stents in the LAD about 7 days ago and had mild elevation of troponin level at that time, which has been tapering down. It is still slightly increased. 2. Hypertension, not adequately controlled. Dose of amlodipine has been increased to 10 mg daily. 3. End-stage renal disease. She has been dialyzing and is euvolemic now. From a cardiac standpoint, she can be discharged home and I will see her in the office in the next 4 weeks or so. MILY GARCÍA MD CM:PNTRANS [id number] MILY GARCÍA MD 12/22/18 4106 interface
--- NOTE | ~2018-12-18 | PR ---
[place], [place] PROGRESS NOTE NAME: LEI DRAPER UNIT #: [id number] ROOM: 412 DOCTOR: ANA ZELAYA MD BIRTHDATE: [birth year] DOS: 12/21/2018 SUBJECTIVE: Hemodynamically, the patient is much more improved. Blood pressure is also stable today. He is afebrile. Heart rate is 80. Alert, awake, responsive, the last pressure that I have was 130/80. No chest pain, no shortness of breath. No palpitations. REVIEW OF SYSTEMS: A 6-8 systems reviewed, stable. PHYSICAL EXAMINATION: HEENT: Unremarkable. NECK: Supple, no JVD. LUNGS: Clear. HEART: Sounds are regular. NEUROLOGIC: Stable. LABORATORY DATA: Shows hemoglobin 9.4, hematocrit 29.9, creatinine is 5.7. IMPRESSION: The patient with end-stage renal disease, acute pulmonary edema, accelerated hypertension and pneumonitis. RECOMMENDATIONS: The patient is doing well. Blood pressure is significantly improved. Monitor the heart rate and blood pressure. Continue dialysis and we will see as needed. ANA ZELAYA MD CM:PNTRANS 1023 [id number] ANA ZELAYA MD 12/30/18 0851 interface
--- NOTE | ~2018-12-18 | PR ---
[place], [place] PROGRESS NOTE NAME: LEI DRAPER UNIT #: [id number] ROOM: 412 DOCTOR: CLARITZA GONZALEZ MD BIRTHDATE: [birth year] DOS: 12/20/2018 NEPHROLOGY FOLLOWUP NOTE SUBJECTIVE: The patient was seen and examined. She is awake and alert. She denies shortness of breath, fevers, chills or night sweats. She appeared comfortable. PHYSICAL EXAMINATION: VITAL SIGNS: Temperature 97.4, pulse 78, respiratory rate 15, blood pressure 138/54. HEENT: Shows no JVD. LUNGS: Diminished breath sounds. No wheeze. HEART: S1, S2. No rub. ABDOMEN: Soft, nontender. EXTREMITIES: Trace edema. LABORATORY DATA: From 12/18/2018, potassium 3.5, BUN 16, creatinine 4.2, hemoglobin 9.4. ASSESSMENT AND PLAN: 1. End-stage renal disease. The patient is on hemodialysis on Saturday, Saturday and Saturday. Next dialysis will be planned for Saturday. Continue supportive care. Dose meds for end-stage renal disease. 2. Coronary artery disease. The patient is being followed by Cardiology. 3. Hypertension. Continue medications. 4. Anemia of chronic disease. As needed, Epogen with dialysis. CLARITZA GONZALEZ MD CM:PNTRANS 1503 [id number] CLARITZA GONZALEZ MD 12/20/18 2339 interface
--- NOTE | ~2018-12-18 | PR ---
[place], [place] PROGRESS NOTE NAME: LEI DRAPER UNIT #: [id number] ROOM: 412 DOCTOR: ANA ZELAYA MD BIRTHDATE: [birth year] DOS: 12/23/2018 SUBJECTIVE: The patient is doing well from the cardiac point of view. Blood pressure is stable. She is sleeping at this point. Blood pressure is 130/40. The patient is in sinus rhythm. No chest pain. No shortness of breath. No palpitations. She is hemodynamically stable. Discharge planning is on. REVIEW OF SYSTEMS: A 6-8 systems are reviewed, stable. PHYSICAL EXAMINATION: HEENT: Unremarkable. NECK: Supple. No JVD. HEART: Sounds are regular. ABDOMEN: Soft, nontender. NEUROLOGIC: Stable. EXTREMITIES: No edema. LABORATORY DATA: Sodium is 129. Hemoglobin is 9.4. IMPRESSION AND PLAN: End-stage renal disease, chronic cough, history of pulmonary edema, and hypertension. The patient is significantly improved. Continue the dialysis. Continue the antihypertensives. We will follow up. ANA ZELAYA MD CM:PNTRANS 0715 0726 ANA ZELAYA MD 12/23/18 0725 interface
--- NOTE | ~2018-12-18 | EKG ---
[place], [place] ELECTROCARDIOGRAM REPORT NAME: LEI DRAPER UNIT #: [id number] ROOM: 412 DOCTOR: JAMISONANY DRAFT REPORT BIRTHDATE: [birth year] [facility] Test Date: 2018-12-18 Test Time: 04:50:06 Pat Name: LEI DRAPER Department: Room: 412 Gender: F Senior Electrical Project Manager: : 1930 Requested By: KULWANT SOMMER Order Number: [id number] Reading MD: Andrew Espinal MD Measurements Intervals [place] Rate: 127 P: 0 AR: 33 QRS: -31 QRSD: 152 T: 59 QT: 402 QTc: 585 Interpretive Statements Uncertain rhythm Right bundle branch block Left ventricular hypertrophy Anterior Q waves, possibly due to LVH Baseline wander in lead(s) I Compared to ECG 12/12/2018 19:21:39 Left ventricular hypertrophy now present Q waves now present Sinus bradycardia no longer present First degree AV block no longer present Atrial abnormality no longer present T-wave abnormality no longer present Electronically Signed On 12-22-2018 14:56:52 PDT by Andrew Espinal MD CM:EKGRPT:ELECTROCARDIOGRAM REPORT [id number] 1456 KULWANT SOMMER MD EPIPHANY DRAFT REPORT KULWANT SOMMER MD
--- NOTE | ~2018-12-18 | CON ---
[place], [place] REPORT OF CONSULTATION NAME: [id number] UNIT #: [id number] ROOM: 412 DOCTOR: MILY GARCÍA MD BIRTHDATE: [birth year] DOS: 12/19/2018 HISTORY OF PRESENT ILLNESS: The patient is an 88-year-old -[place] woman who has coronary artery disease. She had stenting of the LAD back in 2008 and 7 days ago, she had stenting in the proximal LAD, which had 95% stenosis and mid LAD, which had 90% stenosis. LV systolic function was normal. She has mild cardiomyopathy with anterior wall motion abnormality, essential hypertension, end-stage renal disease and has been dialyzing regularly. She had hypertension and had been difficult to control. She has hypothyroidism, obesity and remote CVA with some limb weakness and affect of her speech. She was admitted to the hospital yesterday within 2 days after discharge because of increasing shortness of breath. She also had mild cough without much expectoration. No fever or chills. She had no chest pain and did not have any palpitations, she did not pass out. She was found to have volume overload and pulmonary edema and she dialyzed which improved her breathing. HOME MEDICATIONS: Include amlodipine 5 mg daily, aspirin 81 daily, atorvastatin 80 daily, furosemide 40 daily, hydralazine 25 mg q.12h., insulin glargine, levothyroxine, lisinopril, nitroglycerin, omeprazole, and ticagrelor 90 mg b.i.d. PHYSICAL EXAMINATION: GENERAL: This reveals a patient who is very pleasant, alert. Speech is not normal, but it is comprehensible. VITAL SIGNS: Pulse is 76 and regular, blood pressure 133/60. NECK: JVP is 6 cm with a positive AJR and no bruit in the neck. CARDIAC: Auscultation with no obvious murmurs. EXTREMITIES: She has no edema in the lower extremities. RESPIRATORY: Right lung seems clear, but she has crackles on the left side. ABDOMEN: Supple and nontender. Monitor shows normal sinus rhythm. IMPRESSION: 1. This patient has end-stage renal disease and was volume overloaded, which caused her dyspnea and shortness of breath. 2. Hypertension, seems to be nicely controlled now. 3. Coronary artery disease with a recent stenting of the left anterior descending artery, this is asymptomatic. RECOMMENDATIONS: Her dry weight should be brought down by about 3 kilos. She has been getting leg cramps during dialysis, I think shorter runs and more frequent runs are probably advisable. I thank you for this consult. [place], [place] REPORT OF CONSULTATION NAME: LEI DRAPER UNIT #: [id number] ROOM: [facility] DOCTOR: MILY GARCÍA MD BIRTHDATE: [birth year] MILY GARCÍA MD CM:CONSTR:REPORT OF CONSULTATION 1645 12/20/18 0059 interface
--- NOTE | ~2018-12-18 | EKG ---
[place], [place] ELECTROCARDIOGRAM REPORT NAME: LEI DRAPER UNIT #: [id number] ROOM: 412 DOCTOR: EPIPHANY DRAFT REPORT BIRTHDATE: [birth year] [facility] Test Date: 2018-12-18 Test Time: 10:51:24 Pat Name: LEI DRAPER Department: Room: 412 Gender: F Denture Packer: : 1930 Requested By: KULWANT SOMMER Order Number: [id number] Reading MD: Andrew Espinal MD Measurements Intervals [place] Rate: 97 P: 266 [place]: 181 QRS: -29 QRSD: 171 T: 2 QT: 432 QTc: 549 Interpretive Statements Sinus rhythm Paired ventricular premature complexes Right bundle branch block Left ventricular hypertrophy Anterior Q waves, possibly due to LVH Electronically Signed On 12-22-2018 14:59:02 PDT by Andrew Espinal MD CM:EKGRPT:ELECTROCARDIOGRAM REPORT 1051 1459 KULWANT SOMMER MD EPIPHANY DRAFT REPORT KULWANT SOMMER MD
--- NOTE | ~2018-12-18 | EKG ---
[place], [place] ELECTROCARDIOGRAM REPORT NAME: LEI DRAPER UNIT #: [id number] ROOM: 412 DOCTOR: EPIPHANY DRAFT REPORT BIRTHDATE: [birth year] [facility] Test Date: 2018-12-18 Test Time: 07:29:02 Pat Name: LEI DRAPER Department: Room: 412 Gender: F Blow Down Helper: TL : 1930 Requested By: KULWANT SOMMER Order Number: [id number] Reading MD: Andrew Espinal MD Measurements Intervals [place] Rate: 66 P: 34 DC: 227 QRS: -39 QRSD: 170 T: 12 QT: 515 QTc: 540 Interpretive Statements Sinus rhythm Ventricular premature complex Prolonged DC interval Probable left atrial enlargement Right bundle branch block Left ventricular hypertrophy Anterior Q waves, possibly due to LVH Ventricular premature complex(es) now present Left ventricular hypertrophy now present Q waves now present Sinus bradycardia no longer present T-wave abnormality no longer present Electronically Signed On 12-22-2018 14:57:56 PDT by Andrew Espinal MD CM:EKGRPT:ELECTROCARDIOGRAM REPORT 0729 1457 KULWANT SOMMER MD EPIPHANY DRAFT REPORT KULWANT SOMMER MD
[~2018-12-18 04:43] MED LIST changes: +BRILINTA90 M1 PO; +NITROGLYCERIN0.4 MG SL; +OYSTER SHELL 51 EACH PO; +ZITHROMAX250 MG PO
[2018-12-18 05:17] LABS: BASO % 0.4 % (0.0-1.0); EOS % 0.4 % (1.0-4.0); HEMATOCRIT 29.9 % (37.0-47.0); HEMOGLOBIN 9.4 g/dl (12.0-16.0); LYMPH # 1.3 10*3/uL (1.3-4.4); LYMPH % 13.5 % (27.0-41.0); MEAN CELL VOLUME 95.2 fl (81.0-99.0); MEAN CORPUSCULAR HGB 29.9 pg (27.0-31.0); MEAN CORPUSCULAR HGB CONC 31.4 g/dl (33.0-37.0); MEAN PLATELET VOLUME 10.9 fl (9.6-12.3); MONO # 0.6 10*3/uL (0.1-1.0); MONO % 6.5 % (3.0-9.0); NEUT # 7.7 10*3/uL (2.3-7.9); NEUT % 78.9 % (47.0-73.0); PLATELET COUNT AUTOMATED 314 10*3/uL (130-400); RED BLOOD COUNT 3.14 10*6/uL (4.10-5.10); WHITE BLOOD COUNT 9.8 10*3/uL (4.8-10.8)
[2018-12-18 06:02] LABS: ACT PARTIAL THROMBO TIME 28.9 SECONDS (20.0-32.1)
[2018-12-18 06:07] LABS: ALBUMIN 3.9 gm/dl (3.1-4.5); CREATININE 4.21 mg/dL (0.55-1.02); POTASSIUM 3.7 mmol/L (3.5-5.1); TOTAL PROTEIN 8.3 gm/dL (6.4-8.2)
[2018-12-18 06:12] LABS: TROPONIN I 0.579 ng/ml (<0.045)
[2018-12-19] VITALS: BP 158/87
[2018-12-19 08:00] VITALS: BP 158/72; BP 160/72
[2018-12-19 12:00] VITALS: BP 120/54
[2018-12-19 16:00] VITALS: BP 133/60
[2018-12-19 20:00] VITALS: BP 151/65
[2018-12-20] VITALS: BP 123/51
[2018-12-20 08:35] VITALS: BP 153/73
[2018-12-20 12:08] VITALS: BP 138/54
[2018-12-20 16:14] VITALS: BP 149/75
[2018-12-20 20:00] VITALS: BP 129/43; BP 148/76
[2018-12-21] VITALS: BP 150/59
[2018-12-21 06:53] LABS: ALBUMIN 3.6 gm/dl (3.1-4.5); POTASSIUM 4.2 mmol/L (3.5-5.1)
[2018-12-21 06:56] LABS: CREATININE 5.75 mg/dL (0.55-1.02); TOTAL PROTEIN 7.9 gm/dL (6.4-8.2)
[2018-12-21 08:30] VITALS: BP 134/82
[2018-12-21 12:00] VITALS: BP 159/65
[2018-12-21 16:00] VITALS: BP 170/60
[2018-12-21 20:00] VITALS: BP 159/77
[2018-12-22] VITALS: BP 153/58
[2018-12-22 06:34] LABS: BASO % 0.3 % (0.0-1.0); CREATININE 6.66 mg/dL (0.55-1.02); EOS # 0.2 10*3/uL (0.0-0.4); EOS % 2.2 % (1.0-4.0); HEMATOCRIT 29.9 % (37.0-47.0); HEMOGLOBIN 9.4 g/dl (12.0-16.0); LYMPH # 1.4 10*3/uL (1.3-4.4); MEAN CELL VOLUME 94.9 fl (81.0-99.0); MEAN CORPUSCULAR HGB 29.8 pg (27.0-31.0); MEAN CORPUSCULAR HGB CONC 31.4 g/dl (33.0-37.0); MEAN PLATELET VOLUME 10.8 fl (9.6-12.3); MONO # 0.5 10*3/uL (0.1-1.0); MONO % 5.6 % (3.0-9.0); NEUT # 6.7 10*3/uL (2.3-7.9); NEUT % 75.8 % (47.0-73.0); PLATELET COUNT AUTOMATED 328 10*3/uL (130-400); POTASSIUM 4.3 mmol/L (3.5-5.1); RED BLOOD COUNT 3.15 10*6/uL (4.10-5.10); RED CELL DISTRI WIDTH 14.6 % (0-14.5); WHITE BLOOD COUNT 8.8 10*3/uL (4.8-10.8)
[2018-12-22 12:00] VITALS: BP 133/68
[2018-12-22 16:00] VITALS: BP 137/56
[2018-12-22 20:00] VITALS: BP 123/53
[2018-12-23] VITALS: BP 135/44
[2018-12-23 08:00] VITALS: BP 125/55
[2018-12-23 12:00] VITALS: BP 147/51
[2018-12-23] MEDS ORDERED: DOXYCYCLINE MO100 M1 PO (12:16)
[2018-12-23] MEDS ORDERED: LANTUS SOL100 UNIT/1 SQ (12:16)
== END 2018-12-23 15:15 | disposition home health service (06) | DRG 193 ==
LOC: ED 04:43 → 4E 06:27 → EDHOLD 06:27 → ICCU 06:45 → 4E 21:04
PROVIDERS: Emergency Medicine Emergency Medical Services; Internal Medicine Nephrology; ADMIT Internal Medicine
PROC: 5A1D70Z Performance of Urinary Filtration, Intermittent, Less than 6 Hours Per Day (ICD-10-PCS; principal; 2018-12-18)
PROC: 5A1D70Z Performance of Urinary Filtration, Intermittent, Less than 6 Hours Per Day (ICD-10-PCS; 2018-12-19)
PROC: 5A1D70Z Performance of Urinary Filtration, Intermittent, Less than 6 Hours Per Day (ICD-10-PCS; 2018-12-22)
DX: J18.9 Pneumonia, unspecified organism (principal); N18.6 End stage renal disease; I13.2 Hypertensive heart and chronic kidney disease with heart failure and with stage 5 chronic kidney disease, or end stage renal disease; E87.1 Hypo-osmolality and hyponatremia; I50.30 Unspecified diastolic (congestive) heart failure; I42.9 Cardiomyopathy, unspecified; I95.3 Hypotension of hemodialysis; J06.9 Acute upper respiratory infection, unspecified; I25.10 Atherosclerotic heart disease of native coronary artery without angina pectoris; E78.5 Hyperlipidemia, unspecified; E03.9 Hypothyroidism, unspecified; I27.20 Pulmonary hypertension, unspecified; D63.8 Anemia in other chronic diseases classified elsewhere; E11.649 Type 2 diabetes mellitus with hypoglycemia without coma; E66.9 Obesity, unspecified; E11.22 Type 2 diabetes mellitus with diabetic chronic kidney disease; G89.29 Other chronic pain; M54.9 Dorsalgia, unspecified; K57.30 Diverticulosis of large intestine without perforation or abscess without bleeding; Z90.89 Acquired absence of other organs; Z88.6 Allergy status to analgesic agent; Z79.899 Other long term (current) drug therapy; Z79.82 Long term (current) use of aspirin; Z79.4 Long term (current) use of insulin; Z99.2 Dependence on renal dialysis; Z86.73 Personal history of transient ischemic attack (TIA), and cerebral infarction without residual deficits; Z90.49 Acquired absence of other specified parts of digestive tract; Z90.710 Acquired absence of both cervix and uterus; Z95.5 Presence of coronary angioplasty implant and graft; Z82.3 Family history of stroke; Z84.1 Family history of disorders of kidney and ureter; Z82.49 Family history of ischemic heart disease and other diseases of the circulatory system; Z68.28 Body mass index [BMI] 28.0-28.9, adult

== ENCOUNTER 2018-12-28 06:32 | Inpatient (IN) | payer MEDICARE, OTHER ==
[~2018-12-28] VITALS: Ht 160 cm; Wt 68.7 kg
--- NOTE | ~2018-12-28 | EKG ---
[place], [place] ELECTROCARDIOGRAM REPORT NAME: LEI DRAPER UNIT #: [id number] ROOM: 406 DOCTOR: JAMISONANY DRAFT REPORT BIRTHDATE: [birth year] [facility] Test Date: 2018-12-28 Test Time: 13:43:41 Pat Name: LEI DRAPER Department: Room: 406 Gender: F Planner: : 1930 Requested By: KULWANT SOMMER Order Number: [id number] Reading MD: Andrew Espinal MD Measurements Intervals [place] Rate: 102 P: 253 [place]: 185 QRS: -25 QRSD: 164 T: 43 QT: 383 QTc: 499 Interpretive Statements Sinus tachycardia Right bundle branch block Left ventricular hypertrophy Anterior Q waves, possibly due to LVH Compared to ECG 12/18/2018 10:51:24 Sinus rhythm no longer present Ventricular premature complex(es) no longer present Electronically Signed On 01-05-2019 7:43:53 PDT by Andrew Espinal MD CM:EKGRPT:ELECTROCARDIOGRAM REPORT 1343 0743 KULWANT SOMMER MD EPIPHANY DRAFT REPORT KULWANT SOMMER MD
--- NOTE | ~2018-12-28 | PR ---
[place], [place] PROGRESS NOTE NAME: LEI DRAPER UNIT #: [id number] ROOM: 406 DOCTOR: LOBITO HOPE MD BIRTHDATE: [birth year] DOS: 12/30/2018 SUBJECTIVE: The patient states that she feels good and is not having any complaints. OBJECTIVE: VITAL SIGNS: Blood pressure is 113/59, pulse 63, respirations 18, temperature 97.9. LUNGS: Clear. HEART: Regular. ABDOMEN: Obese, but soft. EXTREMITIES: Without any edema. ASSESSMENT AND PLAN: 1. End-stage renal failure, on dialysis. 2. Mild vascular congestion, which is improved after the dialysis today. The patient feels much better. 3. Generalized anxiety disorder. I added a low dose of Lexapro. Assessment for home O2 has also been ordered. The plan is to discharge her to home after that is done. LOBITO HOPE MD CM:PNTRANS [phone] LOBITO HOPE MD 12/30/18 1024 interface
--- NOTE | ~2018-12-28 | EKG ---
[place], [place] ELECTROCARDIOGRAM REPORT NAME: LEI DRAPER UNIT #: [id number] ROOM: 406 DOCTOR: EPIPHANY DRAFT REPORT BIRTHDATE: [birth year] [facility] Test Date: 2018-12-28 Test Time: 06:43:25 Pat Name: LEI DRAPER Department: Room: 406 Gender: F Employee Development Director: : 1930 Requested By: KULWANT SOMMER Order Number: [id number] Reading MD: Andrew Espinal MD Measurements Intervals [place] Rate: 99 P: 252 [place]: 137 QRS: -40 QRSD: 163 T: 36 QT: 399 QTc: 513 Interpretive Statements Sinus rhythm Ventricular premature complex Right bundle branch block Compared to ECG 12/18/2018 10:51:2 Sinus rhythm no longer present Left ventricular hypertrophy no longer present Q waves no longer present Electronically Signed On 01-05-2019 7:43:25 PDT by Andrew Espinal MD CM:EKGRPT:ELECTROCARDIOGRAM REPORT KULWANT SOMMER MD EPIPHANY DRAFT REPORT KULWANT SOMMER MD
--- NOTE | ~2018-12-28 | EKG ---
[place], [place] ELECTROCARDIOGRAM REPORT NAME: LEI DRAPER UNIT #: [id number] ROOM: 406 DOCTOR: JAMISONANY DRAFT REPORT BIRTHDATE: [birth year] [place] Test Date: 2018-12-28 Test Time: 11:31:20 Pat Name: LEI DRAPER Department: Room: 406 Gender: F Chip Silo Tender: : 1930 Requested By: KULWANT SOMMER Order Number: [id number] Reading MD: Andrew Espinal MD Measurements Intervals [place] Rate: 93 P: 68 ND: 209 QRS: -45 QRSD: 167 T: 44 QT: 423 QTc: 527 Interpretive Statements Sinus rhythm Borderline prolonged ND interval RBBB and LAFB Probable left ventricular hypertrophy Compared to ECG 12/18/2018 10:51:24 Left anterior fascicular block now present Ventricular premature complex(es) no longer present Q waves no longer present Electronically Signed On 01-05-2019 7:43:34 PDT by Andrew Espinal MD CM:EKGRPT:ELECTROCARDIOGRAM REPORT 1131 0743 KULWANT TRINH DRAFT REPORT KULWANT SOMMER MD
--- NOTE | ~2018-12-28 | PR ---
[place], [place] PROGRESS NOTE NAME: LEI DRAPER UNIT #: [id number] ROOM: 406 DOCTOR: LOBITO HOPE MD BIRTHDATE: [birth year] DOS: 12/29/2018 SUBJECTIVE: The patient states that she is feeling better, does not have any complaints today. OBJECTIVE: VITAL SIGNS: Graphic trend shows a pressure of 149/68, pulse of 88, respirations 18, temperature 98.0. LUNGS: Clear. HEART: Regular. ABDOMEN: Soft. EXTREMITIES: Without any edema. LABORATORY DATA: Troponin 3 sets are chronically elevated, possibly from chronic kidney disease. No labs available this morning. ASSESSMENT AND PLAN: 1. The patient who comes in with shortness of breath from underlying congestive heart failure, diastolic is resolving. Repeat chest x-ray will be ordered today. 2. End-stage renal failure, on dialysis, which she will have today. 3. Acute hypoxic respiratory failure, using oxygen here. We will do an assessment for home O2. 4. Type 2 diabetes mellitus, insulin-dependent. Blood sugars controlled 96 this morning. 5. Generalized anxiety disorder, which increases her visits to the ER. We will add a low dose of Lexapro. LOBITO HOPE MD CM:PNTRANS 0747 LOBITO HOPE MD 12/29/18 0940 interface
--- NOTE | ~2018-12-28 | WRIGHTHP ---
[place], [place] PATIENT HISTORY AND PHYSICAL EXAM NAME: LEI DRAPER [facility] #: [id number] UNIT #: [id number] ROOM: 406 DOCTOR: LOBITO HOPE MD BIRTHDATE: [birth year] DOS: 12/28/2018 HISTORY OF PRESENT ILLNESS: The patient is 88 years old. The patient of Dr. Welsh'camila, comes in with complaints of shortness of breath. The patient states that she has had a cough for the last couple of days and cough has gotten better, but she developed shortness of breath, so she decided to come in to the Emergency Room. She denies having any chest pains or palpitations, does not have any fever or chills, does not have any abdominal pain, nausea, and emesis. She was found to be hypoxic, was placed on oxygen in the ER, was also found to have a diastolic congestive heart failure and was admitted. On the day of admission morning, she feels okay, does not have any other complaints. PAST MEDICAL HISTORY: Significant for: 1. End-stage renal failure, on dialysis, last hospitalization on 12/23/2018 with the same problem which was pulmonary edema. 2. End-stage renal failure, on dialysis. 3. Chronic cough. 4. Benign hypertension. 5. Type 2 diabetes mellitus, insulin-dependent. 6. Coronary artery disease with history of stent placement recently by Dr. Espinal. MEDICATIONS: She is on currently are aspirin 81 daily, amlodipine 5 daily, atorvastatin 80 daily, Lasix 40 daily, hydralazine 25 b.i.d., levothyroxine 50 mcg daily, lisinopril 5 daily, omeprazole 20 daily, Brilinta 90 b.i.d., insulin Lantus 10 units at bedtime. SOCIAL HISTORY: Nonsmoker, does not use any alcohol, and lives at home with her daughter. PHYSICAL EXAMINATION: GENERAL: She is awake and alert and oriented, in no distress at all. VITAL SIGNS: Graphic trend shows a pressure of 150/75, pulse of 102, respirations 18, temperature 97.5. LUNGS: Diminished breath sounds. No wheezes, rales or rhonchi heard. HEART: Regular. ABDOMEN: Obese, soft, and nontender. EXTREMITIES: Without any edema. LABORATORY DATA: White cell count is 8.0, hemoglobin 8.8, hematocrit 28.1, platelets 248. Chest x-ray shows mild CHF, mild vascular venous congestion. Protime is 10.8 with an INR of 1.0. Comprehensive glucose 146, BUN 36, creatinine 6.35, sodium 134, potassium 4.3, chloride 98, bicarbonate 32, and troponin 0.421. ASSESSMENT AND PLAN: 1. The patient with acute diastolic congestive heart failure. The patient will be admitted. Consultation for dialysis obtained. 2. End-stage renal failure, on dialysis. Consult Dr. Bo. 3. Hypoxic respiratory failure. She may require home oxygen. We will do an [place], [place] PATIENT HISTORY AND PHYSICAL EXAM NAME: LEI DRAPER UNIT #: [id number] ROOM: [facility] DOCTOR: LOBITO HOPE MD BIRTHDATE: [birth year] assessment close to discharge. 4. Type 2 diabetes mellitus, insulin-dependent. Blood sugars controlled. 5. Possible mild anxiety causing her increased visits to the ER. Could consider low dose of anxiety medications. LOBITO HOPE MD CM:HISPHYS:PATIENT HISTORY AND PHYSICAL EXAMINATION 8 6 LOBITO HOPE MD 12/29/18926 interface
[~2018-12-28 06:32] MED LIST changes: +DOXYCYCLINE MO100 M1 PO
[2018-12-28 06:59] LABS: BASO # 0.1 10*3/uL (0.0-0.1); BASO % 0.6 % (0.0-1.0); EOS # 0.1 10*3/uL (0.0-0.4); EOS % 1.1 % (1.0-4.0); HEMATOCRIT 28.1 % (37.0-47.0); HEMOGLOBIN 8.8 g/dl (12.0-16.0); LYMPH # 1.3 10*3/uL (1.3-4.4); LYMPH % 15.8 % (27.0-41.0); MEAN CELL VOLUME 95.9 fl (81.0-99.0); MEAN CORPUSCULAR HGB CONC 31.3 g/dl (33.0-37.0); MEAN PLATELET VOLUME 10.3 fl (9.6-12.3); MONO # 0.5 10*3/uL (0.1-1.0); MONO % 6.3 % (3.0-9.0); NEUT # 6.1 10*3/uL (2.3-7.9); PLATELET COUNT AUTOMATED 248 10*3/uL (130-400); RED BLOOD COUNT 2.93 10*6/uL (4.10-5.10); RED CELL DISTRI WIDTH 15.2 % (0-14.5)
[2018-12-28 07:16] LABS: ALBUMIN 3.7 gm/dl (3.1-4.5); CREATININE 6.35 mg/dL (0.55-1.02); POTASSIUM 4.3 mmol/L (3.5-5.1); TOTAL PROTEIN 7.8 gm/dL (6.4-8.2)
[2018-12-28 07:19] LABS: TROPONIN I 0.421 ng/ml (<0.045)
[2018-12-28 07:22] VITALS: BP 160/88
[2018-12-28 08:02] VITALS: BP 149/86
[2018-12-28 08:10] VITALS: BP 146/70
[2018-12-28 12:00] VITALS: BP 178/80
[2018-12-28 16:00] VITALS: BP 148/80
[2018-12-28 20:00] VITALS: BP 150/75
[2018-12-29] VITALS: BP 149/68
[2018-12-29] MEDS ORDERED: BENZONATATE100 M1 PO (01:37)
[2018-12-29 08:00] VITALS: BP 130/78
[2018-12-29 12:00] VITALS: BP 129/61
[2018-12-29 16:00] VITALS: BP 122/48
[2018-12-29 20:00] VITALS: BP 118/52
[2018-12-30] VITALS: BP 129/45
[2018-12-30 08:00] VITALS: BP 113/59
[2018-12-30] MEDS ORDERED: ESCITALOPRAM OX10 MG PO (08:08)
[2018-12-30 12:00] VITALS: BP 112/52
== END 2018-12-30 13:53 | disposition home health service (06) | DRG 291 ==
LOC: ED 06:32 → EDHOLD 07:37 → 4E 07:37
PROVIDERS: Emergency Medicine Emergency Medical Services; ADMIT Internal Medicine
PROC: 5A1D70Z Performance of Urinary Filtration, Intermittent, Less than 6 Hours Per Day (ICD-10-PCS; 2018-12-29)
PROC: 5A1D70Z Performance of Urinary Filtration, Intermittent, Less than 6 Hours Per Day (ICD-10-PCS; principal; 2018-12-30)
DX: I13.2 Hypertensive heart and chronic kidney disease with heart failure and with stage 5 chronic kidney disease, or end stage renal disease (principal); N18.6 End stage renal disease; J96.01 Acute respiratory failure with hypoxia; I50.31 Acute diastolic (congestive) heart failure; I25.10 Atherosclerotic heart disease of native coronary artery without angina pectoris; G89.29 Other chronic pain; M54.9 Dorsalgia, unspecified; K57.30 Diverticulosis of large intestine without perforation or abscess without bleeding; E78.5 Hyperlipidemia, unspecified; E21.3 Hyperparathyroidism, unspecified; E03.9 Hypothyroidism, unspecified; I27.20 Pulmonary hypertension, unspecified; E11.22 Type 2 diabetes mellitus with diabetic chronic kidney disease; F41.1 Generalized anxiety disorder; R74.8 Abnormal levels of other serum enzymes; Z88.6 Allergy status to analgesic agent; Z79.4 Long term (current) use of insulin; Z79.899 Other long term (current) drug therapy; Z79.82 Long term (current) use of aspirin; Z90.49 Acquired absence of other specified parts of digestive tract; Z90.89 Acquired absence of other organs; Z90.710 Acquired absence of both cervix and uterus; Z95.5 Presence of coronary angioplasty implant and graft; Z99.2 Dependence on renal dialysis; I25.2 Old myocardial infarction; Z86.73 Personal history of transient ischemic attack (TIA), and cerebral infarction without residual deficits; Z82.3 Family history of stroke; Z84.1 Family history of disorders of kidney and ureter; Z82.49 Family history of ischemic heart disease and other diseases of the circulatory system; Z87.01 Personal history of pneumonia (recurrent)

== ENCOUNTER 2019-01-02 01:05 | Inpatient (IN) | payer MEDICARE, OTHER ==
[2019-01-02] VITALS (7 sets, daily range): BP systolic 126–181; BP diastolic 55–89
[~2019-01-02] VITALS: Ht 160 cm; Wt 65.0 kg
[~2019-01-02 01:05] MED LIST changes: +BENZONATATE100 M1 PO; +ESCITALOPRAM OX10 MG PO
--- NOTE | 2019-01-02 02:08 | NUR ---
NAUSEA HAS IMPROVED SINCE ARRIVING TO THE ED. MORE RELAXED AT THIS TIME. DAUGHTER IS FAMILY WAITING AREA AND PATIENT ASKED THAT SHE BE UPDATED. UPDATED REQUESTED.
--- NOTE | 2019-01-02 02:13 | NUR ---
FINISHED CLOTH CHECKER UNABLE TO OBATIN FULL FIRST SET OF BLLOD CULTURES OR ANY OF SECOND SET.
[2019-01-02 02:19] LABS: BASO # 0.1 10*3/uL (0.0-0.1); BASO % 0.5 % (0.0-1.0); EOS # 0.1 10*3/uL (0.0-0.4); EOS % 0.9 % (1.0-4.0); HEMATOCRIT 26.2 % (37.0-47.0); HEMOGLOBIN 8.4 g/dl (12.0-16.0); LYMPH # 1.4 10*3/uL (1.3-4.4); MEAN CELL VOLUME 94.6 fl (81.0-99.0); MEAN CORPUSCULAR HGB 30.3 pg (27.0-31.0); MEAN CORPUSCULAR HGB CONC 32.1 g/dl (33.0-37.0); MONO # 0.4 10*3/uL (0.1-1.0); MONO % 4.8 % (3.0-9.0); NEUT # 7.2 10*3/uL (2.3-7.9); NEUT % 78.6 % (47.0-73.0); PLATELET COUNT AUTOMATED 250 10*3/uL (130-400); RED BLOOD COUNT 2.77 10*6/uL (4.10-5.10); RED CELL DISTRI WIDTH 15.2 % (0-14.5); WHITE BLOOD COUNT 9.1 10*3/uL (4.8-10.8)
--- NOTE | 2019-01-02 02:26 | NUR ---
OFF THE FLOOR FOR IMAGING.
[2019-01-02 02:31] LABS: ACT PARTIAL THROMBO TIME 24.8 SECONDS (20.0-32.1)
[2019-01-02 02:35] LABS: ALBUMIN 3.8 gm/dl (3.1-4.5); CREATININE 5.9 mg/dL (0.55-1.02); POTASSIUM 4.2 mmol/L (3.5-5.1); TOTAL PROTEIN 7.8 gm/dL (6.4-8.2)
--- NOTE | 2019-01-02 02:35 | NUR ---
Pulled up in bed and repsotioned for comfort. Nausea has improved and denies any other needs. Remains stable. Will monitor.
[2019-01-02 02:37] LABS: TROPONIN I 0.44 ng/ml (<0.045)
--- NOTE | 2019-01-02 02:46 | NUR ---
Spoke with Dr Blair regarding issues obtaining second set of blood cultures. Okay to hold off on obtaining and label stitcher notified.
--- NOTE | 2019-01-02 03:09 | NUR ---
Medicated for nausea and repositioned self to left side with HOB remaining elevated per request. Lights dimmed to promote rest. Updated, additional warm blankets provided, and denies any additional needs. Will continue to monitor.
--- NOTE | 2019-01-02 03:40 | NUR ---
Nausea has subsided.
--- NOTE | 2019-01-02 04:07 | NUR ---
[place] need to urinate so attempt was made to straight cath due to recent UTI. Upon removing incontinence brief, it is wet with foul urine. Entrance of urethra is red and protruding and is uncomfortable with attempt to pass straigh cath. Patient coughed upon insetion and passed small amount of mucousy foul urine. Catheter advanced into bladder with scant drops of urine returned but not enough for specimen. Incontinence care provided and repositioned in bed. Dr Blair made aware of inability to obtain specimen.
--- NOTE | 2019-01-02 04:48 | NUR ---
SPOKE TO RECEIVING RN TO ADVISE OF ETA. ROOM NOT YET READY.
--- NOTE | 2019-01-02 05:20 | NUR ---
A 88, admitted to 5E, under the services of TANYA Borges MD with a diagnosis of NAUSEA/VOMITING. Chief complaint is NAUSEA. Patient arrived via bed from ER. Monitor applied. Initial assessment completed. Vital signs taken and recorded. TANYA BORGES MD notified of admission to the unit. Orders received. See assessment for past medical history, medications and allergies. Patient oriented to unit. Clothing/patient valuable form completed. MARCO SEAMAN
--- NOTE | 2019-01-02 05:30 | NUR ---
Nurse to nurse to MO wolff at the bedside.
--- NOTE | 2019-01-02 05:42 | NUR ---
INFORMED THAT HOME MEDS ARE VERIFIED BY PATIENT.
--- NOTE | 2019-01-02 06:14 | NUR ---
[facility] CALLED AND INFORMED THAT PATIENT WAS ADMITTED AND IS TO HAVE DIALYSIS TODAY. STATED THEY WOULD INFORMED NURSE
--- NOTE | 2019-01-02 06:37 | NUR ---
OFFICE CALLED AND MADE AWARE OF NEW CONSULT. STATED THEY WOULD SEND MESSAGE TO
--- NOTE | 2019-01-02 06:50 | NUR ---
CALLED BACK, INFORMED OF PATIENT ADMISSION. IS REQUESTING FOR PATIENT TO BE DISCHARGE BEFORE DIAYLSIS HAPPEN, OTHER GARRETT PATIENT WILL HAVE TO BE AN OVER NIGHT STAY. INFORMED OF 'S REQUESTS. STATES THAT WILL WANT TO SEE PATIENT PRIOR TO DISCAHRGE AND THAT HE WILL BE IN AROUND 0900. NEXT NURSE WILL BE INFORMED AND REQUEST TO [facility] TO TAKE PATIENT LAST FOR DIALYSIS WILL BE MADE.
--- NOTE | 2019-01-02 07:35 | NUR ---
PATIENT TAKEN BY BED TO DIALYSIS AT THIS TIME.
--- NOTE | 2019-01-02 09:00 | NUR ---
Lab Aid in to talk to patient in the dialysis room. Patient states lives at home with her daughter. There are 0 steps in the home. Physician: Dr. Jonny Welsh Pharmacy: [facility] Home health services: [facility] twice a week for 2 hours each time and OV Patient's level of ADLs: MINIMAL ASSIST Patient has working utilities: yes DME: walker, wheelchair, shower chair, bedside commode Follow-up physician's appointment after d/c: she prefers to make her own follow up appt after discharge Does patient want to access PORTAL?: no Discharge plan discussed with patient. She lives at home with her daughter. She needs minimal assistance with her ADLs and ambulates with a walker or uses a wheelchair. Discussed home health care services and she states she currently has [facility] twice a week for 2 hours each time and OV and would like to resume those services upon discharge. She denies any further needs at home. She is dialysis MWF, her chair time is 5am, and she uses [facility]. When medically stable she will be discharged to home with the resumption of her [facility] and OV services. Her daughter will transport on discharge. JOE HUS
[2019-01-02 09:13] LABS: BASO # 0.1 10*3/uL (0.0-0.1); BASO % 0.7 % (0.0-1.0); EOS # 0.1 10*3/uL (0.0-0.4); EOS % 0.6 % (1.0-4.0); HEMATOCRIT 26.7 % (37.0-47.0); HEMOGLOBIN 8.5 g/dl (12.0-16.0); LYMPH # 1.2 10*3/uL (1.3-4.4); LYMPH % 14.2 % (27.0-41.0); MEAN CORPUSCULAR HGB 29.9 pg (27.0-31.0); MEAN CORPUSCULAR HGB CONC 31.8 g/dl (33.0-37.0); MEAN PLATELET VOLUME 10.4 fl (9.6-12.3); MONO # 0.3 10*3/uL (0.1-1.0); NEUT # 6.6 10*3/uL (2.3-7.9); NEUT % 80.1 % (47.0-73.0); PLATELET COUNT AUTOMATED 242 10*3/uL (130-400); RED BLOOD COUNT 2.84 10*6/uL (4.10-5.10); RED CELL DISTRI WIDTH 15.2 % (0-14.5); WHITE BLOOD COUNT 8.2 10*3/uL (4.8-10.8)
[2019-01-02 09:27] LABS: ALBUMIN 3.8 gm/dl (3.1-4.5); CREATININE 2.79 mg/dL (0.55-1.02); PHOSPHOROUS 1.2 mg/dL (2.5-4.9); POTASSIUM 3.6 mmol/L (3.5-5.1)
--- NOTE | 2019-01-02 11:26 | NUR ---
PHYSICAL THERAPY Physical therapy evaluation attempted. Patient out of room for dialysis at this time. Will attempt PT evaluation at a later time/date. Thank you. Beverly Avina,PT,DPT.
--- NOTE | 2019-01-02 11:51 | NUR ---
Patient not available for occupational therapy as she at dialysis. Yojana Vora OTR/l
--- NOTE | 2019-01-02 13:48 | NUR ---
SPEECH THERAPY Patient seen for modified barium swallow study to assess for aspiration risk. Pateint admitted to hospital with nausea, "gagging", gas, and abdominal pain, and was recently discharged from previous admission for SOB and non-productive cough lasting about 1 week. Patient's WBC was WFL and CXR dated 01/02 revealed "mild vascular congestion mild patchy bibasilar atelectasis." Patient interviewed prior to MBS. She denies any difficulty swallowing, including coughing, choking, or globus sensation in her throat. She reported she previously had MBS done, but was unable to provide date/year. Oral mech exam revealed reduced buccal and labial coordination, with lingual and labial ROM and volition cough WFL. Patient was assessed with barium coated applesauce, banana, and sips of nectar-like and thin liquid barium. Patient demonstrated mildly increased mastication time during consumption of banana, and mild-moderate pharyngeal residues following trial of banana and nectar-like liquid. No penetration or aspiration was observed across all trials. Patient demosntrated tolerance of regular diet with thin liquids. Recommended she remain on current diet and utilize universal safe swallowing strategies. Results and recommendations shared with patient and patient's nurse who verbalized understanding. Dictated report to follow. Helene Bartlett MA CCC-STEWARD/STEWARDESS BANQUET
--- NOTE | 2019-01-02 15:17 | NUR ---
Spoke to patient and daughter, Ashley, who is at the bedside. Discussed short term SNF and both are refusing. Patient has [facility] twice a week for 2 hours each time and [facility] services. When medically stable she will be discharged to home with the resumption of her home services.
--- NOTE | 2019-01-02 21:00 | NUR ---
SLEEPING, AWAKENS EASILY. RESPIRATIONS EASY. LUNGS DIMINISHED, CLEAR. PULSE OX 92% RA. DENIES N/V AND STATES THAT SHE FORGOT TO ORDER DINNER AND IS HUMGRY - BOXED LUNCH PROVIDED. CALL LIGHT WITHIN REACH. NO VOICED COMPLAINTS
--- NOTE | 2019-01-02 21:01 | NUR ---
24 HR chart check completed.
--- NOTE | 2019-01-02 22:00 | NUR ---
BOXED LUNCH CONSUMED WITHOUT DIFFICULTY. NO C/O N/V
[2019-01-03] VITALS: BP 135/48
--- NOTE | 2019-01-03 | NUR ---
SLEEPING, NO DISTRESS NOTED. RESPIRATIONS EASY. VSS. CALL LIGHT WITHIN REACH. BED ALARM MAINTAINED FOR SAFETY
--- NOTE | 2019-01-03 06:00 | NUR ---
SLEPT THROUGHOUT NIGHT WITH NO DISTRESS NOTED. RESPIRATIONS EASY. NO C/O N/V. CALL LIGHT WITHIN REACH. NO VOICED COMPLAINTS THIS SHIFT. BED ALARM MAINTAINED
[2019-01-03 06:21] LABS: BASO # 0.1 10*3/uL (0.0-0.1); BASO % 0.6 % (0.0-1.0); EOS # 0.1 10*3/uL (0.0-0.4); EOS % 1.6 % (1.0-4.0); HEMATOCRIT 27.2 % (37.0-47.0); HEMOGLOBIN 8.5 g/dl (12.0-16.0); LYMPH # 1.7 10*3/uL (1.3-4.4); LYMPH % 19.6 % (27.0-41.0); MEAN CELL VOLUME 95.4 fl (81.0-99.0); MEAN CORPUSCULAR HGB 29.8 pg (27.0-31.0); MEAN CORPUSCULAR HGB CONC 31.3 g/dl (33.0-37.0); MEAN PLATELET VOLUME 10.7 fl (9.6-12.3); MONO # 0.6 10*3/uL (0.1-1.0); MONO % 6.8 % (3.0-9.0); NEUT # 6.2 10*3/uL (2.3-7.9); NEUT % 71.1 % (47.0-73.0); PLATELET COUNT AUTOMATED 248 10*3/uL (130-400); RED BLOOD COUNT 2.85 10*6/uL (4.10-5.10); RED CELL DISTRI WIDTH 15.2 % (0-14.5); WHITE BLOOD COUNT 8.7 10*3/uL (4.8-10.8)
[2019-01-03 06:55] LABS: ALBUMIN 3.4 gm/dl (3.1-4.5); CREATININE 4.19 mg/dL (0.55-1.02); FREE T4 1.32 ng/dl (0.76-1.46); PHOSPHOROUS 1.8 mg/dL (2.5-4.9); POTASSIUM 4.3 mmol/L (3.5-5.1); TOTAL PROTEIN 7.4 gm/dL (6.4-8.2)
[2019-01-03 07:00] LABS: THYROID STIM HORMONE (HS) 1.6 uIU/ml (0.358-4.75)
[2019-01-03 07:13] LABS: VITAMIN D, 25-HYDROXY 54.5 ng/mL (30-100)
[2019-01-03 08:00] VITALS: BP 156/66
--- NOTE | 2019-01-03 11:30 | NUR ---
ASSUMED CARE FOR THIS PT AT THIS TIME. NO C/O VOICED. FAMILY VISITING. CALL LIGHT IN REACH.
[2019-01-03 12:00] VITALS: BP 141/71
--- NOTE | 2019-01-03 16:16 | NUR ---
Discharge instructions reviewed with patient/family. Patient receptive and verbalizes understanding. Follow-up care arranged. Written instructions given to patient/family. CHRISTIANE WHITTINGTON
== END 2019-01-03 16:16 | disposition home health service (06) | DRG 73 ==
LOC: ED 01:05 → 5E 04:27 → EDHOLD 04:27 → 5E 04:41
PROVIDERS: Emergency Medicine Emergency Medical Services; Internal Medicine; Internal Medicine Nephrology; ADMIT Internal Medicine
PROC: 5A1D70Z Performance of Urinary Filtration, Intermittent, Less than 6 Hours Per Day (ICD-10-PCS; principal; 2019-01-02)
PROC: BD1BYZZ Fluoroscopy of Mouth/Oropharynx using Other Contrast (ICD-10-PCS; principal; 2019-01-02)
DX: E11.43 Type 2 diabetes mellitus with diabetic autonomic (poly)neuropathy (principal); N18.6 End stage renal disease; N25.81 Secondary hyperparathyroidism of renal origin; I13.2 Hypertensive heart and chronic kidney disease with heart failure and with stage 5 chronic kidney disease, or end stage renal disease; K57.30 Diverticulosis of large intestine without perforation or abscess without bleeding; I25.10 Atherosclerotic heart disease of native coronary artery without angina pectoris; E03.9 Hypothyroidism, unspecified; E78.5 Hyperlipidemia, unspecified; G89.29 Other chronic pain; M54.9 Dorsalgia, unspecified; D64.9 Anemia, unspecified; E66.9 Obesity, unspecified; R05 Cough; K31.84 Gastroparesis; E11.65 Type 2 diabetes mellitus with hyperglycemia; I50.9 Heart failure, unspecified; I27.20 Pulmonary hypertension, unspecified; Z99.2 Dependence on renal dialysis; Z79.4 Long term (current) use of insulin; Z87.440 Personal history of urinary (tract) infections; Z88.5 Allergy status to narcotic agent; I25.2 Old myocardial infarction; Z86.73 Personal history of transient ischemic attack (TIA), and cerebral infarction without residual deficits; Z90.49 Acquired absence of other specified parts of digestive tract; Z90.710 Acquired absence of both cervix and uterus; Z95.5 Presence of coronary angioplasty implant and graft; Z84.1 Family history of disorders of kidney and ureter; Z82.3 Family history of stroke; Z82.49 Family history of ischemic heart disease and other diseases of the circulatory system; Z79.899 Other long term (current) drug therapy; Z79.82 Long term (current) use of aspirin; Z68.26 Body mass index [BMI] 26.0-26.9, adult

== ENCOUNTER 2019-04-07 14:11 | Inpatient (IN) | payer MEDICARE, OTHER ==
[~2019-04-07] VITALS: Ht 160 cm; Wt 63.3 kg
[2019-04-07 14:13] VITALS: BP 197/62
[2019-04-07 14:47] LABS: BASO # 0.1 10*3/uL (0.0-0.1); BASO % 0.5 % (0.0-1.0); EOS % 0.4 % (1.0-4.0); HEMATOCRIT 40.9 % (37.0-47.0); LYMPH # 1.4 10*3/uL (1.3-4.4); LYMPH % 13.9 % (27.0-41.0); MEAN CELL VOLUME 91.7 fl (81.0-99.0); MEAN CORPUSCULAR HGB 29.1 pg (27.0-31.0); MEAN CORPUSCULAR HGB CONC 31.8 g/dl (33.0-37.0); MEAN PLATELET VOLUME 12.2 fl (9.6-12.3); MONO # 0.8 10*3/uL (0.1-1.0); MONO % 8.1 % (3.0-9.0); NEUT # 7.9 10*3/uL (2.3-7.9); NEUT % 76.8 % (47.0-73.0); PLATELET COUNT AUTOMATED 230 10*3/uL (130-400); RED BLOOD COUNT 4.46 10*6/uL (4.10-5.10); RED CELL DISTRI WIDTH 15.6 % (0-14.5); WHITE BLOOD COUNT 10.2 10*3/uL (4.8-10.8)
[2019-04-07 14:57] LABS: ACT PARTIAL THROMBO TIME 25.6 SECONDS (20.0-32.1); INTERNATIONAL NORM RATIO 0.9 (2.0-3.5)
[2019-04-07 15:00] VITALS: BP 184/78
[2019-04-07 15:10] LABS: ALBUMIN 3.8 gm/dl (3.1-4.5); CREATININE 5.95 mg/dL (0.55-1.02); POTASSIUM 5.9 mmol/L (3.5-5.1); TOTAL PROTEIN 8.8 gm/dL (6.4-8.2)
[2019-04-07 15:13] LABS: TROPONIN I 0.328 ng/ml (<0.045)
--- NOTE | 2019-04-07 15:16 | NUR ---
NOTIFED BY LAB, PT HAS TROPONIN OF 0.328, DR BARKER NOTIFED.
[2019-04-07 16:30] VITALS: BP 178/84; BP 193/85
[2019-04-07 17:30] VITALS: BP 164/84
--- NOTE | 2019-04-07 17:30 | NUR ---
A 89, admitted to 4E, under the services of TANYA Borges MD with a diagnosis of RIGHT SIDED NECK PAIN, ELEVATED TROPONIN. Chief complaint is RIGHT NECK PAIN. Patient arrived via bed from ER. Monitor applied. Initial assessment completed. Vital signs taken and recorded. TANYA BORGES MD notified of admission to the unit. Orders received. See assessment for past medical history, medications and allergies. Patient and/or family oriented to unit. [facility] visitation policy reviewed. Clothing/patient valuable form completed. MATTI THORNTON
[2019-04-07] MEDS ORDERED: BRILINTA90 M1 PO (17:52)
--- NOTE | 2019-04-07 17:56 | NUR ---
MED REC UPDATED BY LIST FROM PHARMACY.
--- NOTE | 2019-04-07 17:59 | NUR ---
CALL PLACED TO DR IBARRA REGARDING ADMISSION ORDERS, ORDERS RECEIVED.
--- NOTE | 2019-04-07 18:35 | NUR ---
1X DOSE OF IV DILAUDID GIVEN PER ORDER FOR COMPLAINTS OF 9/10 RIGHT SIDED NECK PAIN. WILL MONITOR.
--- NOTE | 2019-04-07 18:35 | NUR ---
DR LOWE'S ANSWERING NOTIFIED OF NEW CONSULT.
[2019-04-07 20:00] VITALS: BP 178/62
[2019-04-07 21:10] LABS: CREATININE 6.26 mg/dL (0.55-1.02)
[2019-04-07 21:17] LABS: POTASSIUM 4.4 mmol/L (3.5-5.1)
--- NOTE | 2019-04-07 22:40 | NUR ---
PATIENT REQUESTING MEDICATION FOR PAIN, DR CHOWDARY CALLED, NEW ORDERS RECEIVED.
--- NOTE | 2019-04-07 22:53 | NUR ---
PATIENT REQUESTING PAIN MEDIATION FOR RIGHT NECK PAIN RATED 9/10 ON 0/10 SCALE. NORCO ADMINISTERED PRESCRIBED. WILL MONITOR FOR EFFECTIVENESS.
--- NOTE | 2019-04-07 23:53 | NUR ---
PATIENT STATES THAT PAIN IS BETTER AFTER NORCO TAKEN. WILL CONTINUE TO MONITOR.
[2019-04-08] VITALS: BP 174/84
--- NOTE | 2019-04-08 02:00 | NUR ---
PATIENT RESTING WITH EYES CLOSED. RESPIRATIONS EASY AND UNLABORED. BED ALARM ON AND CALL LIGHT WITHNIN REACH. WILL MONITOR.
--- NOTE | 2019-04-08 04:00 | NUR ---
PATIENT RESTING WITH EYES CLOSED. RESPIRATIONS EASY AND UNLABORED. BED ALARM ON AND CALL LIGHT WITHIN REACH.
--- NOTE | 2019-04-08 04:55 | NUR ---
PATIENT REQUESTING MEDICATION FOR PAIN, NO ORDERS- DR CHOWDARY CALLED, WAITING FOR NEW ORDERS.
--- NOTE | 2019-04-08 05:18 | NUR ---
PATIENT REQUESTING PAIN MEDICATION FOR RIGHT NECK PAIN RATED 8/10 ON 0/10 SCALE. NORCO ADMINISTERED PRESCRIBED. WILL MONITOR FOR EFFECTIVENESS.
[2019-04-08 06:30] LABS: CREATININE 6.9 mg/dL (0.55-1.02)
[2019-04-08 06:31] LABS: POTASSIUM 4.5 mmol/L (3.5-5.1)
[2019-04-08 08:00] VITALS: BP 158/70
--- NOTE | 2019-04-08 08:30 | NUR ---
PHYSICAL THERAPY Screen received as well as PT orders will follow thank you Inga Elizabeth PT
--- NOTE | 2019-04-08 09:00 | NUR ---
Security Systems Administrator in to talk to patient. Patient states lives at home with her daughter. There are 0 steps in the home. Physician: Dr. Jonny Welsh Pharmacy: [facility] Home health services: [facility] twice a week for 2 hours each time Patient's level of ADLs: MINIMAL ASSIST Patient has working utilities: yes DME: walker, wheelchair, shower chair, bedside commode Follow-up physician's appointment after d/c: she prefers to make her own follow up appt after discharge Does patient want to access PORTAL?: no Discharge plan discussed with patient. She lives at home with her daughter. She needs minimal assistance with her ADLs and ambulates with a walker or uses a wheelchair. Discussed home health care services and she states she currently has [facility] twice a week for 2 hours each time and would like to resume those services upon discharge. She denies any further needs at home. She is dialysis MWF, her chair time is 5am, and she uses [facility]. When medically stable she will be discharged to home with the resumption of her [facility]. Her daughter will provide transportation on discharge. Elevated troponin trending down. Potassium 4.[address] showed tendonitis. JOE HSU
[2019-04-08 12:00] VITALS: BP 128/72
--- NOTE | 2019-04-08 13:34 | NUR ---
CONTACTED DIALYSIS NURSE TO SEE WHEN TREATMENT WAS GOING TO BE DONE, THEY WERE NOT AWARE. CRYSTALLOGRAPHY TEACHER TEXTING DR. LOWE.
--- NOTE | 2019-04-08 14:55 | NUR ---
MEDICATED WITH PRN NORCO PER ORDER AND REQUEST. PATIENT IS IN DIALYSIS.
--- NOTE | 2019-04-08 15:52 | NUR ---
Nursing screen completed and chart reviewed. If patient should have a decline in ADL baseline, then refer to OT. Thank you. Harley Vora Otr/L
--- NOTE | 2019-04-08 18:44 | NUR ---
PATIENT BACK IN ROOM FROM DIALYSIS.
[2019-04-08 20:00] VITALS: BP 136/57
[2019-04-09] VITALS: BP 160/60
--- NOTE | 2019-04-09 01:50 | NUR ---
24 HR chart check completed.
[2019-04-09 06:19] LABS: ALBUMIN 3.2 gm/dl (3.1-4.5); CREATININE 4.71 mg/dL (0.55-1.02); POTASSIUM 4.3 mmol/L (3.5-5.1)
--- NOTE | 2019-04-09 07:51 | NUR ---
Roller Mill Operator in to see patient. Discussed short term rehab and she refuses. When medically stable she will be discharged to home with the resumption of her [facility]. Discussed additional home health care services and she refuses. Dr. Garcia notified.
[2019-04-09 08:00] VITALS: BP 148/62
[2019-04-09 12:00] VITALS: BP 104/47
--- NOTE | 2019-04-09 13:50 | NUR ---
PHYSICAL THERAPY Attempted to see pt for evaluation pt states she is not up for anything at this time due to pain R side of neck, currently using Kpad on neck which pt states helps "a little" rating pain 12/06. Able to obtain background information only at this time will follow. Inga Elizabeth PT
[2019-04-09 16:00] VITALS: BP 122/61
[2019-04-09 20:00] VITALS: BP 145/72
[2019-04-10] VITALS: BP 124/50; BP 124/64
--- NOTE | 2019-04-10 01:28 | NUR ---
24 HR chart check completed.
--- NOTE | 2019-04-10 02:00 | NUR ---
PATIENT IN BED WITH EYES CLOSED. AROUSES TO VERBAL STIMULI. NO SIGNS OR SYMPTOMS OF DISTRESS NOTED. RESPIRATIONS REGULAR ON ROOM AIR. WILL CONTINUE TO MONITOR. CALL LIGHT IN REACH.
--- NOTE | 2019-04-10 07:08 | NUR ---
PT TAKEN OFF THE FLOOR TO GO TO DIALYSIS
[2019-04-10 08:40] LABS: INTERNATIONAL NORM RATIO 0.9 (2.0-3.5)
--- NOTE | 2019-04-10 09:00 | NUR ---
Transformer Builder in to see patient. She is currently not in her room. Will follow up at a later time.
--- NOTE | 2019-04-10 10:29 | NUR ---
PTS DAUGHTER CALLED. UPDATED ON POC. QUESTIONS ANSWERED.
--- NOTE | 2019-04-10 11:13 | NUR ---
REPORT RECIEVED FROM DIALYSIS
--- NOTE | 2019-04-10 11:23 | NUR ---
PT RETURNED TO THE FLOOR FROM DIAYLSIS. RESTING IN BED. VOICES NO CONCERNS AT THIS TIME. CALL LIGHT WITHIN REACH.
[2019-04-10 11:30] VITALS: BP 168/66
--- NOTE | 2019-04-10 12:31 | NUR ---
Taste Tester in to see patient. Discussed short term SNF and she continues to refuse. Discussed home health care services and she states she has [facility] at home and would like to resume those services. She denies any further home health care needs. When medically stable she will be discharged to home.
--- NOTE | 2019-04-10 13:04 | NUR ---
PT COMPLAINS OF 5/10 NECK PAIN. MEDICATED PER ORDER. WILL CONTINUE TO MONITOR FOR RELIEF. VOICES NO OTHER CONCERNS AT THIS TIME. RESTING IN BED. BED ALARM ON. CALL LIGHT WITHIN REACH.
--- NOTE | 2019-04-10 14:05 | NUR ---
JONNATHAN HELPED A LITTLE BIT PER PT. RESTING IN BED. CALL LIGHT WITHINR REACH
[2019-04-10 15:26] LABS: CREATININE 3.79 mg/dL (0.55-1.02); POTASSIUM 3.8 mmol/L (3.5-5.1)
[2019-04-10 16:00] VITALS: BP 139/63
[2019-04-10 20:00] VITALS: BP 130/60
--- NOTE | 2019-04-10 20:20 | NUR ---
PT SLEEPING IN BED, AWAKENS EASILY. RESP-EASY AND REGULAR. C/O RIGHT NECK PAIN, MEDICATED WITH MOTRIN PER PT REQUEST. ALSO APPLIED VOLTAREN CREAM ON NECK/SHOULDER AREA. CALL LIGHT IN REACH. SEE SHIFT ASSESSMENT.
--- NOTE | 2019-04-10 21:10 | NUR ---
PT SLEEPING IN BED. RESP-EASY AND REGULAR. MEDICATION SEEMS TO BE EFFECTIVE. CALL LIGHT IN REACH.
--- NOTE | 2019-04-10 22:00 | NUR ---
PT SLEEPING IN BED. AWAKENS EASILY. BSG-208, SEE EMAR. NO C/O AT THIS TIME. CALL LIGHT IN REACH.
[2019-04-11] VITALS: BP 138/62
--- NOTE | 2019-04-11 | NUR ---
PT SLEEPING IN BED. RESP-EASY AND REGULAR. CALL LIGHT IN REACH.
--- NOTE | 2019-04-11 04:00 | NUR ---
PT RESTING IN BED WITH EYES CLOSED. RESP-EASY AND REGULAR. CALL LIGHT IN REACH.
--- NOTE | 2019-04-11 06:00 | NUR ---
PT SLEEPING IN BED, AWAKENS EASILY. TOLERATED ROUTINE MED WITH NO PROBLEM. BSG-96, SEE EMAR. CALL LIGHT IN REACH. BED ALARM ON.
[2019-04-11 08:00] VITALS: BP 126/56
[2019-04-11 12:00] VITALS: BP 152/117; BP 158/72
--- NOTE | 2019-04-11 13:53 | NUR ---
MEDICATED WITH MOTRIN PER PRN ORDER FOR COMPLAINTS OF MILD RIGHT SIDED NECK PAIN. WILL MONITOR FOR EFFECTIVENESS.
--- NOTE | 2019-04-11 14:00 | NUR ---
PHYSICAL THERAPY PT EVAL COMPLETED TODAY: FULL EVAL TO FOLLOW. RECOMMEND PT WHILE HERE TO ADDRESS DECREASED STRENGTH, BALANCE AND FUNCTIONAL MOBILITY. PT EVAL IS MODERATE COMPLEXITY: [id number]. D/C REC: BASED ON EVAL WOULD ADVISE SNF AT THIS TIME IF SHE MEETS CRITERIA. THANK YOU FOR REFERRAL CYRUS FERRIS PT
--- NOTE | 2019-04-11 15:00 | NUR ---
PT RESTING COMFORTABLY WITH K-PAD IN PLACE. CALL LIGHT WITHIN REACH.
[2019-04-11 16:00] VITALS: BP 146/53
[2019-04-11 20:00] VITALS: BP 153/60
--- NOTE | 2019-04-11 20:22 | NUR ---
PT RESTING IN BED. RESPIRATIONS EASY AND REGULAR. NO COMPLAINTS AT THIS TIME. WILL MONITOR. CALL LIGHT IN REACH.
--- NOTE | 2019-04-11 22:55 | NUR ---
24 HR chart check completed.
[2019-04-12] VITALS: BP 152/58
--- NOTE | 2019-04-12 04:27 | NUR ---
PT REQUESTING PAIN MED FOR NECK PAIN RATED 8/10. MEDICATED WITH PRN MOTRIN ORDERED. WILL CHECK EFFECTIVENESS. CALL LIGHT WITHIN REACH.
--- NOTE | 2019-04-12 10:31 | NUR ---
SPOKE TO DR IBARRA, STATES OK TO D/C EMPLOYEE BENEFITS COORDINATOR.
[2019-04-12 12:16] VITALS: BP 160/60
[2019-04-12 16:00] VITALS: BP 187/86
[2019-04-12 16:45] VITALS: BP 160/80
--- NOTE | 2019-04-12 17:48 | NUR ---
Patient is satisfied with Voltaren cream and said she does not want the Motrin.
[2019-04-12 20:00] VITALS: BP 168/81
--- NOTE | 2019-04-12 20:00 | NUR ---
PATIENT LAYING IN BED WITH EYES OPEN, PATIENT VERY RESTLESS. ALERT & ORIENTED TO SELF AND PLACE BUT NOT TO TIME. STATES THAT HER NECK IS BOTHERING HER A BIT, PATIENT REPOSITIONED, WILL MEDICATE WITH PRN MOTRIN. SEE ASSESSMENT. BED ALARM ON AND CALL LIGHT WITHIN REACH.
--- NOTE | 2019-04-12 21:12 | NUR ---
PATIENT MEDICATED WITH MOTRIN FOR C/O RESTLESSNESS. WILL MONITOR FOR EFFECTIVENESS.
--- NOTE | 2019-04-12 22:12 | NUR ---
PATIENT A LITTLE LESS RESTLESS AFTER MOTRIN GIVEN, STATES THAT NECK IS FEELING BETTER AFTER MOTRIN AND VOLTARN CREAM. WILL CONTINUE TO MONITOR.
[2019-04-13] VITALS: BP 166/62
--- NOTE | 2019-04-13 | NUR ---
PATIENT RESTING IN BED WITH EYES CLOSED. RESPIRATIONS EASY AND UNLABORED. BED ALARM ON AND CALL LIGHT IN REACH. WILL MONITOR.
--- NOTE | 2019-04-13 04:00 | NUR ---
PATIENT RESTING WITH EYES CLOSED. RESPIRATIONS EASY AND UNLABORED. BED ALARM ON AND CALL LIGHT IN REACH. WILL MONITOR.
--- NOTE | 2019-04-13 05:50 | NUR ---
PATIENT BS 48 AT THIS TIME. PATIENT PROVIDED 1 ORANGE JUICE CUP AND A VANILLA ICE CREAM.
--- NOTE | 2019-04-13 06:25 | NUR ---
PATIENT BS [address] IBARRA CALLED NEW ORDER RECEIVED- SEE EMAR.
--- NOTE | 2019-04-13 06:55 | NUR ---
IV IN RIGHT ARM INFILTRATED, NEW IV PLACED R WRIST.
--- NOTE | 2019-04-13 06:55 | NUR ---
IV started right wrist with #22 protective cath after 2 attempts. Site prepped with Chloroprep. Sterile dressing applied. Patient tolerated procedure well. ALLA ALVARADO
--- NOTE | 2019-04-13 07:00 | NUR ---
BS RECHECKED, 165 AT THIS TIME.
[2019-04-13 08:00] VITALS: BP 150/76
--- NOTE | 2019-04-13 08:23 | NUR ---
PT IN DIALYSIS
[2019-04-13 08:30] LABS: BASO % 0.2 % (0.0-1.0); EOS # 0.1 10*3/uL (0.0-0.4); EOS % 0.4 % (1.0-4.0); HEMATOCRIT 33.8 % (37.0-47.0); HEMOGLOBIN 10.9 g/dl (12.0-16.0); LYMPH # 0.6 10*3/uL (1.3-4.4); LYMPH % 4.5 % (27.0-41.0); MEAN CELL VOLUME 90.4 fl (81.0-99.0); MEAN CORPUSCULAR HGB 29.1 pg (27.0-31.0); MEAN CORPUSCULAR HGB CONC 32.2 g/dl (33.0-37.0); MEAN PLATELET VOLUME 11.6 fl (9.6-12.3); MONO # 0.7 10*3/uL (0.1-1.0); MONO % 5.8 % (3.0-9.0); NEUT # 10.8 10*3/uL (2.3-7.9); NEUT % 88.8 % (47.0-73.0); PLATELET COUNT AUTOMATED 260 10*3/uL (130-400); RED BLOOD COUNT 3.74 10*6/uL (4.10-5.10); RED CELL DISTRI WIDTH 15.4 % (0-14.5); WHITE BLOOD COUNT 12.2 10*3/uL (4.8-10.8)
--- NOTE | 2019-04-13 08:30 | NUR ---
PHYSICAL THERAPY Patient is in dialysis at this time. Will check back with patient later. AMBROSIO AQUINO MAINFRAME PROGRAMMER ANALYST
--- NOTE | 2019-04-13 08:31 | NUR ---
Garage Supervisor in to see patient in dialysis room. Discussed short term rehab and she is agreeable. When provided with a list of facilities she chose [facility]. Spoke to daughter, Ashley, at [phone] regarding her mother's wishes to go to [facility] before returning home and daughter states that is what her mother said yesterday also. face worker notified.
--- NOTE | 2019-04-13 08:40 | NUR ---
WALKING DRAGLINE OPERATOR received notice the patient would like to be referred to [facility]. WALKING DRAGLINE OPERATOR faxed new referral to [facility]. -CLAUDINE Conley
[2019-04-13 08:56] LABS: CREATININE 7.37 mg/dL (0.55-1.02); POTASSIUM 3.7 mmol/L (3.5-5.1)
[2019-04-13 09:12] LABS: INTERNATIONAL NORM RATIO 0.9 (2.0-3.5)
--- NOTE | 2019-04-13 09:50 | NUR ---
DIALYSIS NURSE CALLED FOR RN TO COME DOWN TO SEE PATIENT. PT SEEMS ANXIOUS, HAVING CONSTANT MOVEMENTS. CALLED AND NOTIFIED DR. ASTORGA, NO NEW ORDERS
--- NOTE | 2019-04-13 10:00 | NUR ---
CHECKED PATIENT BLOOD SUGAR, BLOOD SUGAR 68- APPLE JUICE GIVEN. WILL RECHECK
[2019-04-13 12:00] VITALS: BP 152/78
--- NOTE | 2019-04-13 12:18 | NUR ---
PT RETURN FROM DIALYSIS. PT GRABBING AT THINGS IN THE AIR, CONFUSED. PT WITH GARBLED SPEECH ABLE TO SAY NAME, NO OTHER ORIENTATION QUESTIONS ANSWERED. PT GIVEN AM MEDICATIONS, BLOOD PRESSURE REMAINED STABLE WHILE IN DIALYSIS.
--- NOTE | 2019-04-13 13:28 | NUR ---
PHYSICAL THERAPY Patient had dialysis this AM and declined therapy this afternoon, saying she needed to rest. Patient wants therapy to come back tommorrow when she doesn't have to have dialysis. Will check back tommorrow. AMBROSIO AQUINO COATING OPERATOR
--- NOTE | 2019-04-13 13:41 | NUR ---
PT REQUESTED PAIN PILL, MOTRIN GIVEN. WILL MONITOR FOR EFFECTIVENESS
--- NOTE | 2019-04-13 14:31 | NUR ---
BLOOD SUGAR [address] NURIS UPTON ROOM TO SEE PATIENT. AWARE THAT PATIENT HAS NOT HAD ANYTHING TO EAT TODAY. IF PATIENT DOES NOT EAT, PLEASE HOLD HS INSULIN.
[2019-04-13 16:00] VITALS: BP 150/80
--- NOTE | 2019-04-13 19:37 | NUR ---
24 HR chart check completed.
[2019-04-13 20:00] VITALS: BP 129/49
--- NOTE | 2019-04-13 21:17 | NUR ---
PATIENT MEDICATED WITH MOTRIN FOR RESTLESSNESS AND NECK PAIN. WILL MONITOR FOR EFFECTIVENESS.
--- NOTE | 2019-04-13 21:50 | NUR ---
DR IBARRA CALLED, PATIENT CONFUSED, YELLING OUT, BEING ARGUMENTATIVE, AND REFUSING TO TAKE NIGHT TIME MEDICATIONS. NEW ORDER RECEIVED.
--- NOTE | 2019-04-13 22:06 | NUR ---
PATIENT MEDICATED WITH 1x DOSE RISPERIDONE PRESCRIBED. WILL MONITOR FOR EFFECTIVENESS.
--- NOTE | 2019-04-13 23:06 | NUR ---
PATIENT RESTING WITH EYES CLOSED, AROUSES EASILY WHEN TALKED TO. PATIENT CALM AT THIS TIME. WILL MONITOR.
[2019-04-14] VITALS: BP 160/73
--- NOTE | 2019-04-14 | NUR ---
PATIENT RESTING WITH EYES CLOSED. RESPIRATIONS EASY AND UNLABORED. BED ALARM ON AND CALL LIGHT IN REACH.
--- NOTE | 2019-04-14 02:00 | NUR ---
PATIENT RESTING WITH EYES CLOSED. VERY RESTLESS, MOVING AROUND IN BED, REPOSITIONED FOR COMFORT. BED ALARM ON AND CALL LIGHT IN REACH.
--- NOTE | 2019-04-14 04:00 | NUR ---
PATIENT RESTING WITH EYES CLOSED. RESPIRATIONS EASY AND UNLABORED. BED ALARM ON AND CALL LIGHT IN REACH. WILL MONITOR.
--- NOTE | 2019-04-14 07:58 | NUR ---
Awaiting acceptance from [facility]. -CLAUDINE Conley
[2019-04-14 08:00] VITALS: BP 174/80
--- NOTE | 2019-04-14 09:33 | NUR ---
Notified Dr. Welsh patient has been accepted to [facility] and can be discharged when medically stable.
[2019-04-14] MEDS ORDERED: VOLTAREN100 GM T (09:47)
[2019-04-14] MEDS ORDERED: IBUPROFEN400 MG PO (09:47)
[2019-04-14 11:01] LABS: CREATININE 5.05 mg/dL (0.55-1.02)
[2019-04-14 11:09] LABS: POTASSIUM 4.8 mmol/L (3.5-5.1)
--- NOTE | 2019-04-14 11:26 | NUR ---
Patient has been accepted at [facility] and can go when medically stable. SENIOR OCCUPATIONAL THERAPIST completed HENs. -CLAUDINE Conley
--- NOTE | 2019-04-14 11:30 | NUR ---
PHYSICAL THERAPY Patient presented to therapy in supine with head of bed in flat position and bed alarm activated. Patient has difficulty communicating verbally. Patient nods head yes to give informed consent. Patient was identified by name and on wristband. Patient performed supine to sitting at EOB transfer with MOD A X 1. Patient sat on EOB with SBA. Patient performed sit to stand from EOB with MOD A X 1. Patient SPT TO BEDSIDE GENTRY-CHAIR with MOD A X 1. Patient then sat in bedside chair and performed bilateral LE ther ex x 15 reps each in all planes of movement for strengthening the bilateral LEs in order to improve patient's functional mobility. Patient was left in bedside odalis-chair with table locked in front of her and chair alarm tested and attached to patient. Patient's call light left within reach of patient. Patient was 1:1 with this RIVER TESTER for 16 minutes total. jordon herman waiter/waitress captain
[2019-04-14 12:00] VITALS: BP 163/80
[2019-04-14 16:00] VITALS: BP 152/66
--- NOTE | 2019-04-14 17:57 | NUR ---
REPORT GIVEN TO [facility]. PATTERN CUTTER AT 8PM VIA [employer].
--- NOTE | 2019-04-14 20:15 | NUR ---
Hep Lock discontinued. Site asymptomatic. Pressure applied. Sterile dressing applied. VALENTINO VANCE
--- NOTE | 2019-04-14 20:20 | NUR ---
ALERT ORIENTED FORGETFUL. LAYING IN BED WITH HEAD ELEVATED WITH NECK BRACE ON. NO C/O VOICED. LUNG SOUNDS CLEAR. ABD SOFT NORMAL ACTIVE BOWEL SOUNDS. TESSIO CONTINUES. PATIENT TO BE DISCHARGED TO [facility].
--- NOTE | 2019-04-14 20:24 | NUR ---
[facility] HERE AND PATIENT BEING TRANSFERRED TO [facility] AND DISCHARGED TO [facility] WITH BELONGINGS.
--- NOTE | 2019-04-15 07:40 | NUR ---
PHYSICAL THERAPY CO-SIGN I approve of the Physical Therapy notes written above. Inga Elizabeth PT
== END 2019-04-14 20:24 | disposition other institution (70) | DRG 551 ==
LOC: ED 14:11 → 4E 16:18 → EDHOLD 16:18 → 4E 17:45 → 5E 04-12 12:17
PROVIDERS: Emergency Medicine; Internal Medicine; Internal Medicine Nephrology; ADMIT Internal Medicine
PROC: 5A1D70Z Performance of Urinary Filtration, Intermittent, Less than 6 Hours Per Day (ICD-10-PCS; principal; 2019-04-08)
PROC: 5A1D70Z Performance of Urinary Filtration, Intermittent, Less than 6 Hours Per Day (ICD-10-PCS; 2019-04-10)
PROC: 5A1D70Z Performance of Urinary Filtration, Intermittent, Less than 6 Hours Per Day (ICD-10-PCS; 2019-04-13)
DX: M47.22 Other spondylosis with radiculopathy, cervical region (principal); N18.6 End stage renal disease; N25.81 Secondary hyperparathyroidism of renal origin; I13.2 Hypertensive heart and chronic kidney disease with heart failure and with stage 5 chronic kidney disease, or end stage renal disease; I50.9 Heart failure, unspecified; E11.65 Type 2 diabetes mellitus with hyperglycemia; M54.9 Dorsalgia, unspecified; G89.29 Other chronic pain; M48.02 Spinal stenosis, cervical region; M65.28 Calcific tendinitis, other site; I44.0 Atrioventricular block, first degree; I25.10 Atherosclerotic heart disease of native coronary artery without angina pectoris; E11.22 Type 2 diabetes mellitus with diabetic chronic kidney disease; R26.2 Difficulty in walking, not elsewhere classified; R79.89 Other specified abnormal findings of blood chemistry; D69.1 Qualitative platelet defects; E87.5 Hyperkalemia; D64.9 Anemia, unspecified; E03.9 Hypothyroidism, unspecified; K57.30 Diverticulosis of large intestine without perforation or abscess without bleeding; E78.5 Hyperlipidemia, unspecified; I27.20 Pulmonary hypertension, unspecified; S16.1XXA Strain of muscle, fascia and tendon at neck level, initial encounter; X58.XXXA Exposure to other specified factors, initial encounter; Y93.89 Activity, other specified; Y92.89 Other specified places as the place of occurrence of the external cause; Y99.8 Other external cause status; Z99.2 Dependence on renal dialysis; Z79.4 Long term (current) use of insulin; Z95.5 Presence of coronary angioplasty implant and graft; Z88.5 Allergy status to narcotic agent; I25.2 Old myocardial infarction; Z90.49 Acquired absence of other specified parts of digestive tract; Z86.73 Personal history of transient ischemic attack (TIA), and cerebral infarction without residual deficits; Z90.710 Acquired absence of both cervix and uterus; Z82.3 Family history of stroke; Z82.49 Family history of ischemic heart disease and other diseases of the circulatory system; Z84.1 Family history of disorders of kidney and ureter; Z79.899 Other long term (current) drug therapy; Z79.82 Long term (current) use of aspirin

== ENCOUNTER 2019-05-31 16:38 | Inpatient (IN) | payer MEDICARE, OTHER ==
[2019-05-31] VITALS (11 sets, daily range): BP systolic 141–216; BP diastolic 51–97
[~2019-05-31] VITALS: Ht 162.6 cm; Wt 65.0 kg
[~2019-05-31 16:38] MED LIST changes: +IBUPROFEN400 MG PO; +VOLTAREN100 GM T
[2019-05-31 17:20] LABS: BASO # 0.1 10*3/uL (0.0-0.1); BASO % 0.7 % (0.0-1.0); EOS # 0.1 10*3/uL (0.0-0.4); EOS % 0.7 % (1.0-4.0); HEMATOCRIT 32.1 % (37.0-47.0); HEMOGLOBIN 9.8 g/dl (12.0-16.0); LYMPH # 1.2 10*3/uL (1.3-4.4); LYMPH % 13.2 % (27.0-41.0); MEAN CORPUSCULAR HGB CONC 30.5 g/dl (33.0-37.0); MEAN PLATELET VOLUME 10.6 fl (9.6-12.3); MONO # 0.4 10*3/uL (0.1-1.0); MONO % 4.1 % (3.0-9.0); NEUT # 7.3 10*3/uL (2.3-7.9); PLATELET COUNT AUTOMATED 293 10*3/uL (130-400); RED BLOOD COUNT 3.38 10*6/uL (4.10-5.10); RED CELL DISTRI WIDTH 18.1 % (0-14.5); WHITE BLOOD COUNT 9.1 10*3/uL (4.8-10.8)
[2019-05-31 17:31] LABS: ACT PARTIAL THROMBO TIME 28.4 SECONDS (20.0-32.1)
[2019-05-31 17:36] LABS: ALBUMIN 3.6 gm/dl (3.1-4.5); CREATININE 6.42 mg/dL (0.55-1.02); TOTAL PROTEIN 8.3 gm/dL (6.4-8.2)
[2019-05-31 17:40] LABS: TROPONIN I 0.2 ng/ml (<0.045)
--- NOTE | 2019-05-31 19:30 | NUR ---
PT PLACED ON BIPAP 12/8 WITH 60% O2. PT APPEARS TO BE MIRELLA WELL. SPON VT - 401 LEAK - 5. SPO2 - 95% HR - 92 WILL CONTINUE TO REASSESS THE PT NEEDED.
--- NOTE | 2019-05-31 21:00 | NUR ---
A 89, admitted to ICCU, under the services of TANYA Borges MD with a diagnosis of . Chief complaint is . Patient arrived via from ER. Monitor applied. Initial assessment completed. Vital signs taken and recorded. TANYA BORGES MD notified of admission to the unit. Orders received. See assessment for past medical history, medications and allergies. Patient and/or family oriented to unit. [facility] visitation policy reviewed. Clothing/patient valuable form completed. FRANCOISE ADDISON
--- NOTE | 2019-05-31 21:00 | NUR ---
A 89, admitted to ICCU, under the services of TANYA Borges MD with a diagnosis of PULMONARY EDEMA WITH CHF AND RESPIRATORY FAILURE. Chief complaint is SHORTNESS OF BREATH. Patient arrived via stretcher from ER. Monitor applied. Initial assessment completed. Vital signs taken and recorded. TANYA BORGES MD notified of admission to the unit. Orders received. See assessment for past medical history, medications and allergies. Patient and/or family oriented to unit. [facility] ICCU visitation policy reviewed. Clothing/patient valuable form completed. FRANCOISE ADDISON
--- NOTE | 2019-05-31 21:19 | NUR ---
DR. LOWE'S ANSWERING SERVICE NOTIFIED OF CONSULT. AWAITING FOR RETURN CALL. FRANCOISE ADDISON RN
--- NOTE | 2019-05-31 21:22 | NUR ---
AFTER HOURS DIALYSIS NURSE CALLED TO BE NOTIFIED OF PTS ADMISSION. AWAITING RETURN CALL.
--- NOTE | 2019-05-31 21:31 | NUR ---
DR. LOWE RETURNED CALL, ORDERS RECEIVED.
[2019-06-01] VITALS: BP 140/66
[2019-06-01 00:05] LABS: BILIRUBIN NEGATIVE (NEGATIVE); BLOOD 3+ (NEGATIVE); CLARITY SL CLOUDY (CLEAR); COLOR YELLOW (YELLOW); GLUCOSE NEGATIVE (NEGATIVE); KETONE NEGATIVE (NEGATIVE); LEUKO ESTERASE 2+ (NEGATIVE); NITRITE NEGATIVE (NEGATIVE); PH 7.5 (5.0-9.0); SPECIFIC GRAVITY 1.015 (1.005-1.030); UROBILINOGEN 0.2 E.U./dl (0.2-1.0)
[2019-06-01 00:06] LABS: RBC 41-50 rbc/hpf (0-2); WBC 16-20 wbc/hpf (0-5)
[2019-06-01 00:07] LABS: BACTERIA TRACE
[2019-06-01 04:00] VITALS: BP 126/61
[2019-06-01 05:34] LABS: ALBUMIN 3.3 gm/dl (3.1-4.5); CREATININE 6.93 mg/dL (0.55-1.02); POTASSIUM 4.4 mmol/L (3.5-5.1); TOTAL PROTEIN 7.6 gm/dL (6.4-8.2)
[2019-06-01 05:37] LABS: TROPONIN I 0.248 ng/ml (<0.045)
[2019-06-01 06:12] LABS: BASO # 0.1 10*3/uL (0.0-0.1); BASO % 0.6 % (0.0-1.0); EOS # 0.1 10*3/uL (0.0-0.4); EOS % 1.4 % (1.0-4.0); HEMATOCRIT 31.9 % (37.0-47.0); HEMOGLOBIN 9.7 g/dl (12.0-16.0); LYMPH # 1.2 10*3/uL (1.3-4.4); LYMPH % 13.8 % (27.0-41.0); MEAN CELL VOLUME 95.8 fl (81.0-99.0); MEAN CORPUSCULAR HGB 29.1 pg (27.0-31.0); MEAN CORPUSCULAR HGB CONC 30.4 g/dl (33.0-37.0); MEAN PLATELET VOLUME 11.3 fl (9.6-12.3); MONO # 0.5 10*3/uL (0.1-1.0); MONO % 5.1 % (3.0-9.0); NEUT # 6.9 10*3/uL (2.3-7.9); NEUT % 78.6 % (47.0-73.0); PLATELET COUNT AUTOMATED 259 10*3/uL (130-400); RED BLOOD COUNT 3.33 10*6/uL (4.10-5.10); RED CELL DISTRI WIDTH 18.2 % (0-14.5); WHITE BLOOD COUNT 8.8 10*3/uL (4.8-10.8)
--- NOTE | 2019-06-01 07:16 | NUR ---
Shift chart check completed.
[2019-06-01 08:00] VITALS: BP 151/70
--- NOTE | 2019-06-01 08:22 | NUR ---
PHYSICAL THERAPY Screen received pt admit from home with CHF and respiratory failure. Pt recently discharged to home from a nursing facility. Pt could benfit from PT pending medical status, pleas consult if functional status declines from baseline, thank you. Inga Elizabeth PT
--- NOTE | 2019-06-01 09:00 | NUR ---
Patient Financial Services Specialist in to talk to patient. Patient states lives at home with her daughter. There are 0 steps in the home. Physician: Dr. Jonny Welsh [facility]: [facility] Home health services: [facility] twice a week for 2 hours each time Patient's level of ADLs: MINIMAL ASSIST Patient has working utilities: yes DME: walker, wheelchair, shower chair, bedside commode Follow-up physician's appointment after d/c: she prefers to make her own follow up appt after discharge Does patient want to access PORTAL?: no Discharge plan discussed with patient. She lives at home with her daughter. She needs minimal assistance with her ADLs and ambulates with a walker or uses a wheelchair. Discussed home health care services and she states she currently has [facility] twice a week for 2 hours each time and would like to resume those services upon discharge. She is unsure of whether or not [facility] set up home health for her when she was discharged on Saturday. Spoke to Jeimy at [facility] regarding home health care services and [facility] was ordered but they had not yet seen the patient so they will need a new order for home health care services. She is dialysis MWF, her chair time is 5am, and she uses [facility]. When medically stable she will be discharged to home with the resumption of her [facility] and [facility]. Her daughter will provide transportation on discharge. JOE HSU
--- NOTE | 2019-06-01 11:59 | NUR ---
Nursing screen received and chart reviewed. Patient admitted for SOB, has a recent discharge from a nursing facility. If patient has a decline in ADLs, mobility, or transfers, please send OT orders. Thank you. Christina Hernandez, OTR/L
[2019-06-01 12:00] VITALS: BP 134/75
--- NOTE | 2019-06-01 13:07 | NUR ---
DIALYSIS COMPLETED - PT TOLERATED WELL
--- NOTE | 2019-06-01 13:07 | NUR ---
DR STACEY STARKS
[2019-06-01 16:00] VITALS: BP 147/69
[2019-06-01 20:00] VITALS: BP 119/53
--- NOTE | 2019-06-01 20:06 | NUR ---
PT. RESTING IN BED. LEFT SCL DIALYSIS PORT INTACT/ASYMPT. HEP LOCK IN RAN ASYMPT. LUNGS DIMINISHED BILAT, PULSE OX 99% ON 3L NC. ABDOMEN SOFAT, NONDISTENDED AND NORMO. NO PERIPHERAL EDEMA NOTED. KNEE HIGH ALLYN HOSE ON BILAT. RESP. EASY AND REG ,NO DISTRESS. FRANCOISE ADDISON RN
--- NOTE | 2019-06-01 20:25 | NUR ---
MESSAGE LEFT ON [employer]'S ANSWERING MACHINE REGARDING PATIENT TRANSFER TO 1. ALL BELONGINGS SENT WITH PATIENT, REPORT GIVEN TO MO BENITEZ.
--- NOTE | 2019-06-01 20:37 | NUR ---
REPORT FROM FRANCOISE HASSAN AT THIS TIME
--- NOTE | 2019-06-01 20:51 | NUR ---
PATIENT ARRIVED TO FLOOR FROM ICU IN NO DISTRESS. RESPS EASY AND REGULAR. DENIES SHORTNESS OF BREATH. 3L NC INTACT. ALERT AND ORIENTED TO PERSON PLACE AND TIME. BED IN LOWEST POSITION, CALL LIGHT IN REACH
--- NOTE | 2019-06-01 23:29 | NUR ---
24 HR chart check completed.
[2019-06-02] VITALS: BP 125/60
--- NOTE | 2019-06-02 06:04 | NUR ---
PATIENT BLOOD SUGAR WAS 56 FOR FIRST BLOOD SUGAR CHECK. AFTER TWO APPLE JUICES BLOOD SUGAR UP TO 88. PATIENT ASYMPTOMATIC
[2019-06-02 06:47] LABS: CREATININE 3.81 mg/dL (0.55-1.02); PHOSPHOROUS 2.4 mg/dL (2.5-4.9); POTASSIUM 4.1 mmol/L (3.5-5.1)
[2019-06-02 07:37] LABS: BASO % 0.6 % (0.0-1.0); EOS # 0.1 10*3/uL (0.0-0.4); EOS % 0.8 % (1.0-4.0); HEMATOCRIT 28.2 % (37.0-47.0); HEMOGLOBIN 8.6 g/dl (12.0-16.0); LYMPH # 0.8 10*3/uL (1.3-4.4); LYMPH % 11.5 % (27.0-41.0); MEAN CELL VOLUME 95.6 fl (81.0-99.0); MEAN CORPUSCULAR HGB 29.2 pg (27.0-31.0); MEAN CORPUSCULAR HGB CONC 30.5 g/dl (33.0-37.0); MEAN PLATELET VOLUME 10.4 fl (9.6-12.3); MONO # 0.4 10*3/uL (0.1-1.0); MONO % 5.4 % (3.0-9.0); NEUT # 5.8 10*3/uL (2.3-7.9); NEUT % 81.6 % (47.0-73.0); PLATELET COUNT AUTOMATED 227 10*3/uL (130-400); RED BLOOD COUNT 2.95 10*6/uL (4.10-5.10); RED CELL DISTRI WIDTH 18.2 % (0-14.5); WHITE BLOOD COUNT 7.1 10*3/uL (4.8-10.8)
[2019-06-02 08:00] VITALS: BP 134/68
--- NOTE | 2019-06-02 10:30 | NUR ---
Manager Continuous Improvement in to see patient. No new needs or request at this time. She denies any home needs. When medically stable she will be discharged to home with the resumption of her [facility] and new [facility].
[2019-06-02 12:00] VITALS: BP 128/54
--- NOTE | 2019-06-02 15:13 | NUR ---
Faxed home health care referral to [facility]
[2019-06-02] MEDS ORDERED: CIPRO250 MG PO (15:43)
[2019-06-02 16:00] VITALS: BP 145/61
--- NOTE | 2019-06-02 17:22 | NUR ---
Discharge instructions reviewed with patient/family. Patient receptive and verbalizes understanding. Follow-up care arranged WITH PCP IN 1 TO 2 WEEKS. Written instructions given TO FAMILY. PATIENT TAKEN OFF THE FLORR VIA WHEELCHAIR. IV SITE REMOVED. DIEUDONNE MATA
== END 2019-06-02 17:22 | disposition home health service (06) | DRG 871 ==
LOC: ED 16:38 → 5E 19:35 → ICCU 19:35 → EDHOLD 19:35 → ICCU 20:14 → 5E 06-01 20:32
PROVIDERS: Emergency Medicine; Hospitalist; Internal Medicine Nephrology; Nurse Practitioner Family; ADMIT Internal Medicine
PROC: 5A09357 Assistance with Respiratory Ventilation, Less than 24 Consecutive Hours, Continuous Positive Airway Pressure (ICD-10-PCS; principal; 2019-05-31)
PROC: 5A1D70Z Performance of Urinary Filtration, Intermittent, Less than 6 Hours Per Day (ICD-10-PCS; 2019-06-01)
DX: A41.9 Sepsis, unspecified organism (principal); N18.6 End stage renal disease; J96.90 Respiratory failure, unspecified, unspecified whether with hypoxia or hypercapnia; I13.2 Hypertensive heart and chronic kidney disease with heart failure and with stage 5 chronic kidney disease, or end stage renal disease; N39.0 Urinary tract infection, site not specified; I50.22 Chronic systolic (congestive) heart failure; R65.11 Systemic inflammatory response syndrome (SIRS) of non-infectious origin with acute organ dysfunction; I27.20 Pulmonary hypertension, unspecified; E03.9 Hypothyroidism, unspecified; I25.10 Atherosclerotic heart disease of native coronary artery without angina pectoris; E11.22 Type 2 diabetes mellitus with diabetic chronic kidney disease; E11.65 Type 2 diabetes mellitus with hyperglycemia; M54.9 Dorsalgia, unspecified; G89.29 Other chronic pain; B96.20 Unspecified Escherichia coli [E. coli] as the cause of diseases classified elsewhere; E78.5 Hyperlipidemia, unspecified; I95.3 Hypotension of hemodialysis; R80.9 Proteinuria, unspecified; R26.2 Difficulty in walking, not elsewhere classified; R31.21 Asymptomatic microscopic hematuria; Z95.5 Presence of coronary angioplasty implant and graft; Z86.73 Personal history of transient ischemic attack (TIA), and cerebral infarction without residual deficits; Z99.2 Dependence on renal dialysis; I25.2 Old myocardial infarction; Z90.49 Acquired absence of other specified parts of digestive tract; Z90.710 Acquired absence of both cervix and uterus; Z84.1 Family history of disorders of kidney and ureter; Z82.3 Family history of stroke; Z79.4 Long term (current) use of insulin; Z79.899 Other long term (current) drug therapy; Z79.82 Long term (current) use of aspirin; Z88.5 Allergy status to narcotic agent

== ENCOUNTER 2019-06-20 15:24 | Emergency (ER) | payer MEDICARE, OTHER ==
[~2019-06-20] VITALS: Ht 167.6 cm; Wt 68.5 kg
[~2019-06-20 15:24] MED LIST changes: +CIPRO250 MG PO
[2019-06-20 15:51] LABS: BASO % 0.6 % (0.0-1.0); EOS # 0.1 10*3/uL (0.0-0.4); EOS % 0.8 % (1.0-4.0); HEMATOCRIT 30.7 % (37.0-47.0); HEMOGLOBIN 9.5 g/dl (12.0-16.0); LYMPH # 1.2 10*3/uL (1.3-4.4); LYMPH % 18.2 % (27.0-41.0); MEAN CELL VOLUME 95.6 fl (81.0-99.0); MEAN CORPUSCULAR HGB 29.6 pg (27.0-31.0); MEAN CORPUSCULAR HGB CONC 30.9 g/dl (33.0-37.0); MEAN PLATELET VOLUME 10.9 fl (9.6-12.3); MONO # 0.4 10*3/uL (0.1-1.0); MONO % 6.6 % (3.0-9.0); NEUT # 4.7 10*3/uL (2.3-7.9); NEUT % 73.5 % (47.0-73.0); PLATELET COUNT AUTOMATED 253 10*3/uL (130-400); RED BLOOD COUNT 3.21 10*6/uL (4.10-5.10); RED CELL DISTRI WIDTH 17.2 % (0-14.5); WHITE BLOOD COUNT 6.4 10*3/uL (4.8-10.8)
[2019-06-20 16:02] LABS: ACT PARTIAL THROMBO TIME 24.7 SECONDS (20.0-32.1)
[2019-06-20 16:08] LABS: ALBUMIN 3.7 gm/dl (3.1-4.5); CREATININE 4.5 mg/dL (0.55-1.02); POTASSIUM 4.2 mmol/L (3.5-5.1); TOTAL PROTEIN 7.8 gm/dL (6.4-8.2)
[2019-06-20 16:12] LABS: TROPONIN I 0.219 ng/ml (<0.045)
[2019-06-20 16:30] VITALS: BP 156/80
[2019-06-20] MEDS ORDERED: ZOFRAN4 MG PO (19:33)
== END 2019-06-20 19:45 | disposition home or self-care (01) ==
LOC: ED 15:24
PROVIDERS: Emergency Medicine
DX: E11.22 Type 2 diabetes mellitus with diabetic chronic kidney disease (principal); I13.2 Hypertensive heart and chronic kidney disease with heart failure and with stage 5 chronic kidney disease, or end stage renal disease; N18.6 End stage renal disease; I50.9 Heart failure, unspecified; I25.10 Atherosclerotic heart disease of native coronary artery without angina pectoris; G89.29 Other chronic pain; I25.2 Old myocardial infarction; E03.9 Hypothyroidism, unspecified; E78.5 Hyperlipidemia, unspecified; Z99.2 Dependence on renal dialysis; Z88.5 Allergy status to narcotic agent; Z79.2 Long term (current) use of antibiotics; Z79.899 Other long term (current) drug therapy; Z79.4 Long term (current) use of insulin; Z79.82 Long term (current) use of aspirin; Z86.73 Personal history of transient ischemic attack (TIA), and cerebral infarction without residual deficits; Z98.61 Coronary angioplasty status; Z90.710 Acquired absence of both cervix and uterus; Z90.49 Acquired absence of other specified parts of digestive tract

== ENCOUNTER 2019-07-08 17:25 | Emergency (ER) | payer MEDICARE, OTHER ==
[~2019-07-08] VITALS: Ht 152.4 cm; Wt 59.0 kg
[2019-07-08 17:41] VITALS: BP 143/67
== END 2019-07-08 20:06 | disposition home or self-care (01) ==
LOC: ED 17:25
DX: S80.02XA Contusion of left knee, initial encounter (principal); M19.90 Unspecified osteoarthritis, unspecified site; J44.9 Chronic obstructive pulmonary disease, unspecified; I25.10 Atherosclerotic heart disease of native coronary artery without angina pectoris; I12.0 Hypertensive chronic kidney disease with stage 5 chronic kidney disease or end stage renal disease; E11.22 Type 2 diabetes mellitus with diabetic chronic kidney disease; N18.5 Chronic kidney disease, stage 5; Z99.2 Dependence on renal dialysis; Z86.73 Personal history of transient ischemic attack (TIA), and cerebral infarction without residual deficits; Z88.5 Allergy status to narcotic agent; Z79.4 Long term (current) use of insulin; Z79.899 Other long term (current) drug therapy; Z79.82 Long term (current) use of aspirin; Z79.2 Long term (current) use of antibiotics; Z90.49 Acquired absence of other specified parts of digestive tract; Z90.710 Acquired absence of both cervix and uterus; W19.XXXA Unspecified fall, initial encounter; Y93.01 Activity, walking, marching and hiking; Y92.89 Other specified places as the place of occurrence of the external cause; Y99.8 Other external cause status

== ENCOUNTER 2020-03-13 08:34 | Emergency (ER) | payer MEDICARE, OTHER ==
[~2020-03-13] VITALS: Ht 157.4 cm; Wt 59.0 kg
[2020-03-13 09:01] VITALS: BP 188/74
== END 2020-03-13 10:26 | disposition home or self-care (01) ==
LOC: ED 08:34
DX: S01.81XA Laceration without foreign body of other part of head, initial encounter (principal); I13.2 Hypertensive heart and chronic kidney disease with heart failure and with stage 5 chronic kidney disease, or end stage renal disease; E11.22 Type 2 diabetes mellitus with diabetic chronic kidney disease; N18.6 End stage renal disease; I25.10 Atherosclerotic heart disease of native coronary artery without angina pectoris; E03.9 Hypothyroidism, unspecified; E78.5 Hyperlipidemia, unspecified; Z79.899 Other long term (current) drug therapy; Z79.82 Long term (current) use of aspirin; Z88.6 Allergy status to analgesic agent; Z86.73 Personal history of transient ischemic attack (TIA), and cerebral infarction without residual deficits; W18.39XA Other fall on same level, initial encounter; Y93.89 Activity, other specified; Y92.098 Other place in other non-institutional residence as the place of occurrence of the external cause; Y99.8 Other external cause status